=== PATIENT | female | born 1970 | race Caucasian/White ===

== ENCOUNTER 2016-10-08 17:11 | Emergency (ER) | payer OTHER ==
[2016-09-16 01:45] VITALS: BP 132/85
[~2016-10-08 17:11] MED LIST: GLIM4TAB2 PO; HYDR-2666 PO; LORA0.5T PO; METF100010 PO; METF500T4 PO; METO25TA4 PO; OXYC-244 PO; OXYC-323 PO; PRED50TA PO; PROAIR HFA8.5 GM INH; SERT25TA PO; SERT50TA PO; TRAM50TA PO
[2016-10-08] MEDS ORDERED: IPRATRPIUM/ALBUTEROL 0.5/2.5MG 3 ML NEBU. NEB ONE (17:45)
--- NOTE | 2016-10-08 17:59 | PHYS DOC ---
Past Medical History Past Medical History: Anxiety, Diabetes-Type II, Other Additional Past Medical Histor: SVT Past Surgical History: Cholecystectomy Additional Past Surgical Histo: bilateral carpal tunnel Smoking: Quit Greater Than 1 Year Alcohol Use: Rarely Drug Use: None Adult General Chief Complaint Chief Complaint: SORE THROAT HPI HPI Patient is a 46 year old female who presents with sore throat and productive cough for 4 days. She's had subjective fever and myalgias. She also reports nasal congestion and bilateral ear pain. She denies shortness of breath or GI complaints. She has appropriate air inhaler that she has been using approximately twice a day. She did receive her flu shot this year. 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 Her PCP is Dr. Caldera. Review of Systems Review of Systems Constitutional: Reports subjective fever. Eyes: Denies change in visual acuity, redness, or eye pain. [] HENT: Reports sore throat, nasal congestion, and ear pain. Respiratory: Denies shortness of breath. Reports productive cough. Cardiovascular: Denies chest pain, palpitations or edema. [] GI: Denies abdominal pain, nausea, vomiting, bloody stools or diarrhea. [] : Denies dysuria, hematuria or urinary frequency. [] Musculoskeletal: Denies back pain or joint pain. Reports myalgias. Integument: Denies rash or skin lesions. [] Neurologic: Denies headache, focal weakness or sensory changes. [] Endocrine: Denies polyuria or polydipsia. [] Psych: Denies anxiety or depression. [] All systems reviewed and negative unless otherwise stated in the HPI. Current Medications Current Medications Current Medications Medications (Trade) Dose Ordered Sig/Eh Start Time Stop Time Status Last Admin Dose Admin Albuterol/ Ipratropium (Duoneb) 3 ml 1X ONCE 10/08/16 17:45 10/08/16 17:47 DC 10/08/16 18:00 3 ML Allergies Allergies Allergies Coded Allergies Type Severity Reaction Last Updated Verified No Known Drug Allergies 02/02/16 No Physical Exam Physical Exam Constitutional: Well developed, well nourished, no acute distress, non-toxic appearance. [] HENT: Normocephalic, atraumatic, bilateral external ears normal, oropharynx moist, no oral exudates, nose normal. Bilateral TMs without erythema or bulging. There is no posterior pharyngeal erythema or tonsillar edema. Bilateral nasal turbinates are swollen and erythematous. Eyes: PERRLA, EOMI, conjunctiva normal, no discharge. [] Neck: Normal range of motion, no tenderness, supple, no stridor. [] Cardiovascular: Heart rate regular rhythm, no murmur [] Lungs & Thorax: Diffuse expiratory wheezes without rales or rhonchi. She is not in respiratory distress. Skin: Warm, dry, no erythema, no rash. [] Neurologic: Alert and oriented X 3, normal motor function, normal sensory function, no focal deficits noted. [] Psychologic: Affect normal, judgement normal, mood normal. [] Current Patient Data Vital Signs Vital Signs Date Time Temp Pulse Resp B/P Pulse Ox O2 Delivery O2 Flow Rate FiO2 10/08/16 18:02 96 Room Air 10/08/16 17:27 98.1 85 20 98.1 Lab Values Laboratory Tests Test 10/08/16 17:44 Influenza Type A Antigen Negative (NEGATIVE) Influenza Type B Antigen Negative (NEGATIVE) EKG EKG [] Radiology/Procedures Radiology/Procedures PA and lateral chest x-ray reviewed and interpreted by myself with Dr. Moore. There are no focal infiltrates to suggest pneumonia. Course & Med Decision Making Course & Med Decision Making Pertinent Labs and Imaging studies reviewed. (See chart for details) Patient is 46-year-old female who presents with sore throat and productive cough for 4 days. On exam, she has diffuse expiratory wheezes without respiratory distress. Influenza test is negative. Chest x-ray does not show any pneumonia. Her breathing improved after nebulizer treatment in the emergency department. She continues to have diffuse wheezing. Oxygen saturation is stable at 99% on room air. She is discharged home with prescription for prednisone and cough syrup. She is instructed to continue her home albuterol inhaler as needed. Return precautions were discussed. She verbalizes understanding and agrees with plan. Dragon Disclaimer Dragon Disclaimer This electronic medical record was generated, in whole or in part, using a voice recognition dictation system. Departure Departure Impression: Primary Impression: Bronchitis Disposition: 01 HOME, SELF-CARE Condition: STABLE Referrals: Cristy CALDERA MD (PCP) Patient Instructions: Acute Bronchitis, [id number] Additional Instructions: Your flu test was negative. Your chest x-ray does not show pneumonia. You likely have a viral bronchitis. Please complete all the prescribed steroids, even if you are feeling better. Please continue to use your inhaler as needed for cough or shortness of breath. Do not use more often than directed. Please take the prescribed cough medicine to help with your cough. Do not drive or operate heavy machinery while taking this medication. Please follow-up with your primary care doctor if your symptoms continue. Return to emergency department if you have any new or concerning symptoms. Scripts Promethazine Hcl/Codeine (Promethazine-Codeine Syrup)118 Ml Syrup5 Ml PO Q4- 6HRS PRN COUGH #120 ML Prov:SAL LINDQUIST 10/08/16 Prednisone 20 Mg [id number] Mg PO DAILY 5 Days Prov:SAL LINDQUIST 10/08/16 SAL LINDQUIST Oct 08, 2016 17:59
[2016-10-08 18:18] LABS: OBC FLU VALID
[2016-10-08] MEDS ORDERED: PRED20TA PO (18:44)
[2016-10-08] MEDS ORDERED: PROM118S2 PO (18:44)
--- NOTE | 2016-10-09 07:56 | RAD ---
Chest, 2 views, 10/08/2016: History: Cough and wheezing Comparison is made to a study from 12/19/2015. The heart size and pulmonary vascularity are normal. No pulmonary infiltrates are seen. There is no evidence of pleural fluid. Mild spurring is present in the spine. IMPRESSION: No acute cardiopulmonary abnormality is detected.
== END 2016-10-08 18:52 | disposition home or self-care (01) ==
LOC: ER 17:11
DX: J40 Bronchitis, not specified as acute or chronic (principal); F41.9 Anxiety disorder, unspecified; E11.9 Type 2 diabetes mellitus without complications; R50.9 Fever, unspecified; M79.1 Myalgia; H92.03 Otalgia, bilateral; F17.200 Nicotine dependence, unspecified, uncomplicated; Z90.49 Acquired absence of other specified parts of digestive tract
CPT/HCPCS: 71020; 87804; 94250; 94640; 94760; 99285; J7620

== ENCOUNTER → 2016-11-02 | Outpatient (CLI) | payer OTHER ==
[2016-10-08 17:27] VITALS: BP 143/67
[~2016-11-02] MED LIST changes: +PRED20TA PO; +PROM118S2 PO
--- NOTE | 2016-11-02 12:33 | RAD ---
EXAM: DIGITAL SCREEN BILAT W/CAD HISTORY: Routine Screening. COMPARISON: 10/21/2015 Standard mammographic views are obtained of the bilateral breasts. This study was interpreted with the benefit of Computerized Aided Detection (CAD). FINDINGS: The breast parenchyma shows scattered fibroglandular densities. Breast parenchyma level II. There is no definite new suspicious spiculated mass or worrisome new cluster of microcalcifications. There are scattered calcifications again seen. IMPRESSION: No definite new suspicious mass. BI-RADS CATEGORY: 2 BENIGN FINDING RECOMMENDED FOLLOW-UP: 12M 12 MONTH FOLLOW-UP PQRS compliance statement: Patient information was entered into a reminder system with a target due date for the next mammogram. Mammography is a sensitive method for finding small breast cancers, but it does not detect them all and is not a substitute for careful clinical examination. A negative mammogram does not negate a clinically suspicious finding and should not result in delay in biopsying a clinically suspicious abnormality. "Our facility is accredited by the [employer] Mammography Program."
== END | disposition home or self-care (01) ==
LOC: MAMMO 09:50
PROVIDERS: ATTEND Nurse Practitioner Women's Health
DX: Z12.31 Encounter for screening mammogram for malignant neoplasm of breast (principal)
CPT/HCPCS: G0202; 77067

== ENCOUNTER → 2016-12-12 | Outpatient (CLI) | payer OTHER ==
[2016-10-08 17:27] VITALS: BP 143/67
[2016-12-12 12:03] LABS: BASO # 0.1 x10^3/uL (0.0-0.2); BASO % 1 % (0-3); EOS % 3 % (0-3); HEMATOCRIT 38.2 % (36.0-47.0); HEMOGLOBIN 12.7 g/dL (12.0-15.5); LYMPH # 2.8 x10^3/uL (1.0-4.8); LYMPH % 34 % (24-48); MEAN CORPUSCULAR HEMOGLOBIN 31 pg (25-35); MEAN CORPUSCULAR HGB CONC 33 g/dL (31-37); MEAN CORPUSCULAR VOLUME 93 fL (79-100); MONO % 8 % (0-9); NEUT % 54 % (31-73); PLATELET COUNT 207 x10^3/uL (140-400); RED CELL DISTRIBUTION WIDTH 13.8 % (11.5-14.5); WHITE BLOOD COUNT 8.1 x10^3/uL (4.0-11.0)
[2016-12-12 12:13] LABS: ALBUMIN 3.6 g/dL (3.4-5.0); ALBUMIN/GLOBULIN RATIO 0.8 (1.0-1.7); CALCIUM 8.8 mg/dL (8.5-10.1); CREATININE 0.8 mg/dL (0.6-1.0); GFR 77.6; POTASSIUM 4.1 mmol/L (3.5-5.1); TOTAL BILIRUBIN 0.6 mg/dL (0.2-1.0)
[2016-12-14 14:28] LABS: H PYLORI IGG 0.5 U/mL (0.0-0.8); H PYLORI IGM 3.4 units (0.0-8.9)
== END | disposition home or self-care (01) ==
LOC: LAB 11:39
PROVIDERS: ATTEND Family Medicine
DX: E11.9 Type 2 diabetes mellitus without complications (principal); K29.00 Acute gastritis without bleeding
CPT/HCPCS: 36415; 80053; 83036; 85027; 86677

== ENCOUNTER → 2017-01-08 | Outpatient (CLI) | payer OTHER ==
[2016-10-08 17:27] VITALS: BP 143/67
--- NOTE | 2017-01-08 10:08 | RAD ---
Radionuclide gastric emptying study, 01/08/2017: History: Abdominal bloating The study was performed utilizing a solid test meal radiolabeled with 2.1 mCi of technetium 99 M sulfur colloid. The time to half emptying of the radionuclide from the patient's stomach was estimated at 92 minutes. A normal T 1/2 is 60 minutes +/- 30 minutes. IMPRESSION: The gastric emptying time is at the upper limits of normal.
== END | disposition home or self-care (01) ==
LOC: NM 07:03
PROVIDERS: ATTEND Family Medicine
DX: R14.0 Abdominal distension (gaseous) (principal)
CPT/HCPCS: 78264; A9541

== ENCOUNTER → 2017-01-16 | Outpatient (CLI) | payer OTHER ==
[2016-10-08 17:27] VITALS: BP 143/67
--- NOTE | 2017-01-16 08:27 | RAD ---
Indication pelvic pain. History of ablation one year ago. Spotting since. Transabdominal scans were obtained. The initial transabdominal scans were supplemented with transvaginal scans. The transabdominal scans are very suboptimal. The urinary bladder is incompletely distended and there is a poor pelvic window. The transvaginal scans demonstrate numerous nabothian cysts associated with the cervix. The uterus measures approximately 11 x 6.6 x 9.3 cm. It has a very heterogeneous appearance. There is a more dominant mass at the fundus of the uterus measuring approximately 5 cm compatible with a fibroid. The endometrium is not well defined but measures approximately 5 mm. The right ovary was not seen. The left ovary appeared normal. IMPRESSION: Enlarged heterogeneous uterus containing a dominant fibroid at the fundus. Endometrial thickness approximately 5 mm. Normal left ovary. The right ovary was not seen
== END | disposition home or self-care (01) ==
LOC: US 06:53
PROVIDERS: ATTEND Obstetrics & Gynecology
DX: D25.9 Leiomyoma of uterus, unspecified (principal)
CPT/HCPCS: 76830; 76856

== ENCOUNTER → 2017-02-14 | Outpatient (CLI) | payer OTHER ==
[2016-10-08 17:27] VITALS: BP 143/67
[2017-02-14 14:53] LABS: BASO # 0.1 x10^3/uL (0.0-0.2); BASO % 1 % (0-3); EOS % 2 % (0-3); HEMATOCRIT 37.2 % (36.0-47.0); HEMOGLOBIN 12.7 g/dL (12.0-15.5); LYMPH # 2.9 x10^3/uL (1.0-4.8); LYMPH % 44 % (24-48); MEAN CORPUSCULAR HEMOGLOBIN 32 pg (25-35); MEAN CORPUSCULAR HGB CONC 34 g/dL (31-37); MEAN CORPUSCULAR VOLUME 95 fL (79-100); MONO % 6 % (0-9); NEUT % 46 % (31-73); PLATELET COUNT 185 x10^3/uL (140-400); RED BLOOD COUNT 3.94 x10^6/uL (3.50-5.40); RED CELL DISTRIBUTION WIDTH 14.2 % (11.5-14.5); WHITE BLOOD COUNT 6.7 x10^3/uL (4.0-11.0)
--- NOTE | 2017-02-14 14:53 | EKG ---
[facility] [address] [place] [address] Test Date: 2017-02-14 Test Time: 14:54:30 Pat Name: MITCH XIAO Department: Room: Gender: F Boiler Maker: : 1970 Requested By: ROSI BUCKNER Order Number: [id number] Reading MD: Molina Rose Measurements Intervals [place] Rate: 69 P: 37 MT: 150 QRS: 34 QRSD: 90 T: 22 QT: 392 QTc: 422 Interpretive Statements SINUS RHYTHM NO ACUTE FINDINGS Electronically Signed On 02-16-2017 8:45:36 CDT by Molina Rose
[2017-02-14 15:08] LABS: CALCIUM 8.9 mg/dL (8.5-10.1); CREATININE 0.8 mg/dL (0.6-1.0); GFR 77.2; POTASSIUM 3.9 mmol/L (3.5-5.1)
== END | disposition home or self-care (01) ==
LOC: SURGPAT 14:13
PROVIDERS: ATTEND Obstetrics & Gynecology
DX: Z01.812 Encounter for preprocedural laboratory examination (principal)
CPT/HCPCS: 36415; 80048; 85027; 93005

== ENCOUNTER 2017-02-21 06:07 | Observation (INO) | payer OTHER ==
[~2017-02-21] VITALS: Ht 170.2 cm; Wt 113.4 kg
[~2017-02-21 06:07] MED LIST changes: -HYDR-2666 PO; +HYDR-2758 PO; -OXYC-244 PO; +OXYC-327 PO
[2017-02-21] MEDS ORDERED: ONDANSETRON PF 4 MG/2 ML VIAL. IV PRN ×2 (07:00→09:45)
[2017-02-21] MEDS ORDERED: MORPHINE SULFATE 2 MG/ML DISP.SYRIN. IV PRN (07:00)
[2017-02-21] MEDS ORDERED: IV RINGERS,LACTATED 1000ML 1,000 ML IV SCH (07:00)
[2017-02-21] MEDS ORDERED: PROCHLORPERAZINE 10 MG/2 ML VIAL. IV PRN (07:00)
[2017-02-21] MEDS ORDERED: LIDOCAINE 1% 1 ML SYRINGE. ID PRN (07:00)
[2017-02-21] MEDS ORDERED: fentaNYL PF VIAL 100 MCG/2 ML VIAL IV PRN (07:00)
[2017-02-21] MEDS ORDERED: BUPIVACAINE-EPI 0.25%-1:200000 MPF 30 ML VIAL. ONE (07:07)
[2017-02-21] MEDS ORDERED: ESTROGENS, CONJ VAGINAL CREAM 30GM TUBE. ONE (07:07)
[2017-02-21] MEDS ORDERED: METHYLENE BLUE 1% 1 ML VIAL. ONE (07:07)
[2017-02-21] MEDS ORDERED: MIDAZOLAM HCL/PF 2 MG/2 ML VIAL. ONE (07:15)
[2017-02-21] MEDS ORDERED: fentaNYL PF VIAL 250 MCG/5 ML VIAL ONE (07:16)
[2017-02-21] MEDS ORDERED: ROCURONIUM 50 MG/5 ML VIAL. ONE ×2 (07:16→08:17)
[2017-02-21] MEDS ORDERED: PROPOFOL 20 ML IV ONE (07:19)
[2017-02-21] MEDS ORDERED: ONDANSETRON PF 4 MG/2 ML VIAL. ONE (07:19)
[2017-02-21] MEDS ORDERED: LIDOCAINE 2% PF Vial for OR 5 ML VIAL. ONE (07:19)
[2017-02-21] MEDS ORDERED: DEXAMETHASONE SOD PHOS 20 MG/5 ML VIAL. ONE (07:19)
[2017-02-21 07:20] LABS: NEG OBC UR NEG; POS OBC UR POS
[2017-02-21] MEDS ORDERED: ROPIVacaine 0.5% PF 30 ML VIAL. ONE (07:34)
[2017-02-21] MEDS ORDERED: ROPIVacaine 0.2% PF 10 ML VIAL. ONE ×3 (07:34→07:37)
[2017-02-21] MEDS ORDERED: 0.9 % SODIUM CHLORIDE 50 ML VIAL. IJ ONE (07:35)
[2017-02-21] MEDS ORDERED: ceFAZolin 2GM PREMIX 2 GM/50 ML BAG IV ONE (07:44)
[2017-02-21] MEDS ORDERED: NEOSTIGMINE METHYLSULFATE 5 MG/5 ML SYRINGE. ONE (08:46)
[2017-02-21] MEDS ORDERED: GLYCOPYRROLATE 1 MG/5 ML VIAL. ONE (08:46)
[2017-02-21] MEDS ORDERED: SEVOFLURANE 61 TO 120 MINUTES. IH ONE (08:47)
--- NOTE | 2017-02-21 09:32 | PDOC ---
BRIEF OPERATIVE NOTE Date: Feb 21, 2017 Pre-Op Diagnosis pelvic pain and fibroid uterus Post-Op Diagnosis same plus omental adhesions to anterior wall of abdomen Procedure Performed lavh and bso and adhesiolysis Surgeon Burton Diesel Service Apprentice Marko Anesthesiologist yes Anesthesia Type: General Blood Loss 350cc IV Fluid see anesthesia report Urine Output 275cc. Urine was clear prior to morcellation, then a little blood tinged Specimens Obtained uterus, tubes, ovaries Findings see dictation Complications none Additional Remarks [id number] ROSI BUCKNER MD Feb 21, 2017 09:32
--- NOTE | 2017-02-21 09:33 | DISCH ---
DISCHARGE INSTRUCTIONS Condition on Discharge Condition on Discharge: Stable Activity After Discharge Activity Instructions for Disc: Activity as tolerated, Avoid exertion, Progressive ambulation Lifting Instructions after Dis: No heavy lifting, No pulling or pushing, Do not lift >10 pounds Exercise Instruction after Dis: Progress as tolerated Driving Instructions after Dis: No driving for 2 weeks Weight Bearing Status after Di: Full weight bearing Diet after Discharge Diet after Discharge: Diabetic No Calorie Level Wound Incision Care Wound/Incision Care: Ice to area for comfort, May get incision wet Contacting the DR. after DC Call your doctor for: If your condition worsens Follow-Up Follow up with: 1 week in office ROSI BUCKNER MD Feb 21, 2017 09:33
[2017-02-21] MEDS: fentaNYL PF VIAL 100 MCG/2 ML VIAL IV PRN ×4 (09:45→10:33)
[2017-02-21] MEDS ORDERED: diphenhydrAMINE 50 MG/ML VIAL IV PRN (09:45)
[2017-02-21] MEDS ORDERED: PROCHLORPERAZINE 25 MG SUPP.RECT. PR PRN ×2 (09:45)
[2017-02-21] MEDS ORDERED: ZOLPIDEM 5 MG TABLET. PO PRN (09:45)
[2017-02-21] MEDS ORDERED: diphenhydrAMINE HCL 25 MG CAPSULE PO PRN (09:45)
[2017-02-21] MEDS ORDERED: MAG HYDROX/ALUMINUM HYD/SIMETH 30 ML ORAL.SUSP PO PRN (09:45)
[2017-02-21] MEDS ORDERED: 0.9 % SODIUM CHLORIDE 10 ML DISP.SYRIN. IV PRN (09:45)
[2017-02-21] MEDS ORDERED: NALOXONE 0.4 MG/ML VIAL. IV PRN (09:45)
[2017-02-21] MEDS ORDERED: IBUPROFEN 600 MG TABLET. PO PRN (09:45)
[2017-02-21] MEDS ORDERED: SIMETHICONE 80 MG TAB.CHEW PO PRN (09:45)
[2017-02-21] MEDS ORDERED: HYDROmorphone 2 MG/ML VIAL IM PRN (09:45)
[2017-02-21] MEDS: HYDROmorphone 2 MG/ML VIAL IV PRN ×4 (09:45→10:53)
[2017-02-21] MEDS ORDERED: HYDROcodone/APAP 5/325MG 1 TAB TABLET PO PRN (09:45)
[2017-02-21] MEDS ORDERED: oxyCODONE/APAP 5/325 1 TAB TABLET PO PRN (09:45)
[2017-02-21] MEDS ORDERED: NON FORMULARY ITEM (Albuterol Sulfate (Proair Hfa Inhaler) 1 PUFF) INH PRN (09:45)
[2017-02-21] MEDS ORDERED: KETOROLAC TROMETHAMINE 30 MG/ML INJ. IV PRN (09:45)
[2017-02-21] MEDS ORDERED: ALBUTEROL SULFATE 2.5 MG/3 ML NEBU. NEB PRN ×2 (09:45→10:30)
[2017-02-21] MEDS ORDERED: LACTULOSE 20 GM/30 ML SOLUTION. PO PRN (09:45)
[2017-02-21] MEDS ORDERED: HYDROmorphone 2 MG/ML VIAL IV PRN (09:45)
[2017-02-21] MEDS ORDERED: CALCIUM CARBONATE 500 MG TAB.CHEW PO PRN (09:45)
[2017-02-21] MEDS ORDERED: SERTRALINE 50 MG TABLET. PO SCH (11:00)
[2017-02-21] MEDS ORDERED: GLIMEPIRIDE 2 MG TABLET. PO SCH (11:00)
[2017-02-21] MEDS ORDERED: ESTRADIOL WEEKLY 0.1 MG PATCH. TD SCH (11:00)
[2017-02-21] MEDS ORDERED: METOPROLOL TART IMMED RELEASE 25 MG TABLET. PO SCH (11:00)
[2017-02-21] MEDS ORDERED: metFORMIN XR 500 MG TAB.ER.24H PO SCH (11:00)
[2017-02-21] MEDS ORDERED: LORazepam 1 MG TABLET PO SCH (11:00)
[2017-02-21 11:17] VITALS: BP 107/62
[2017-02-21 11:30] VITALS: BP 102/58
--- NOTE | 2017-02-21 11:37 | OP ---
DATE OF SURGERY: 02/21/2017 PREOPERATIVE DIAGNOSES: This is a 47-year-old female who presented with a history of pelvic pain and a fibroid uterus. POSTOPERATIVE DIAGNOSES: This is a 47-year-old female who presented with a history of pelvic pain and a fibroid uterus and omental adhesions to the anterior wall of the abdomen. PROCEDURES: Laparoscopic-assisted vaginal hysterectomy and bilateral salpingo-oophorectomy with adhesiolysis. SURGEONS: Dr. Buckner and Dr. Zhu. ANESTHESIA: General. COMPLICATIONS: None. ESTIMATED BLOOD LOSS: 350 mL; there was actually a discrepancy with the blood loss. The suction floor mechanic showed that we had lost 880 mL, but we actually had put in 60 mL of pelvic wash prior to the procedure and the anesthesiologist said that we had to irrigate it when we were doing laparoscopy which, in fact, we actually did not. So, she was subtracting the irrigant from the amount that the suction floor mechanic had in the canister and got 350 mL. The actual suction floor mechanic machine showed 880 mL. INTRAVENOUS FLUIDS: Please see anesthesia. URINE OUTPUT: 275 mL, the urine was completely clear prior to morcellation and there was a tiny bit of blood-tinged afterwards. SPECIMENS: Uterus, tubes, and ovaries. FINDINGS: As follow. COMPLICATIONS: None. DESCRIPTION OF PROCEDURE: After informed consent was obtained, the patient was taken to the operating room and given a smooth induction of anesthesia without complications. Her legs were placed in Alfredo stirrups and her abdomen, perineum, and vagina were prepped and draped in the usual sterile fashion. She received 2 grams of Ancef prior to the procedure onset. A weighted speculum was placed in the vagina and the anterior lip of the cervix was grasped with a single tooth tenaculum. Cervix was injected with 0.25% Marcaine 10 mL at 2, 4, 8, and 10 o'clock on the cervix. We then placed the Valtchev through cervical os and removed the speculum. We then went above and a 5-mm incision was made just above the umbilicus because there was an incision from her previous cholecystectomy just below. We went through this incision trocar using the Recogniaort technology. It appeared, we were in some adhesions. At that point, we placed 2 lateral ports under direct visualization and were able to further see the adhesions, our port actually was not in the adhesions, they were just directly in front of it. We took down the adhesions with the LigaSure. They appeared to be all omental adhesions and were taken down easily. We then placed the patient in Trendelenburg and visualized the uterus. The uterus was noted to be enlarged with a very retroverted top heavy fibroid, which was sitting in the posterior cul-de-sac. Both ovaries appeared to be normal. We then proceeded to cauterize and ligate the round ligament on both sides. A window was created in the medial leaf of the broad ligament and the bladder flap was dissected anteriorly. We then visualized the ureter on both sides before coming across the IP ligament, cauterized the IP ligament and transected it, we then came down the sides of the uterus to cauterize the uterine vessels. Once we reached the uterosacral ligaments, we stopped. There was a fair amount of backbleeding from the uterus and again we had to suction a couple of times. Prior to starting the actual procedure, we placed 60 mL of a dilute of Naropin solution into the pelvis for patient's comfort. it was a dilute solution of 30 mL of 0.2% ropivacaine in 200 mL of saline was the mix and then we used 60 mL of it. We then terminated the above procedure and went down below. Weighted speculum was placed in the vagina. The Valtchev and tenaculum were replaced by 2 Judah thyroid clamps. We then created an incision circumferentially around the cervix. The bladder was retracted anteriorly using blunt dissection with a Ray-Jose Daniel. Once we entered the anterior peritoneum, we were able to elevate the uterus and entered posteriorly as well. This was done with the Metzenbaum scissors. We then tagged the posterior peritoneum to the posterior vaginal wall and saved it for later use. We then placed a Blaise speculum intraperitoneally. We then proceeded to clamp, cut, and ligate using Douglas transfixion sutures. The 2 uterosacral cardinal complexes, these were tacked to the lateral vaginal sidewalls and saved for later use. We then proceeded to clamp, cut, and ligate what was left of the cardinal ligaments and the uterine arteries. The uterus then had to be morcellated to be removed. The uterus was very large and morcellation took some time and again when we were pulling and tugging on the uterus, we got a little bit of blood-tinged urine from the bladder. Once the uterus was removed, we closed the peritoneum using a running pursestring suture of 2-0 Vicryl and then closed the vagina using a running locking stitch of 2-0 Vicryl. We then went back above to irrigate the pelvis. Pelvis was irrigated. No bleeding was noted. Tisseel was sprayed across the raw surfaces to help with hemostasis, although no bleeding again was noted. The gutters were both clear of blood. There was no bleeding from the omentum that had been previously taken down. We then removed the ports under direct visualization and the gas was allowed to escape. We closed the port sites with an interrupted suture of 4-0 nylon. The patient tolerated the procedure well. There were no complications. ROSI BUCKNER MD DR: BRITTNY/candelario JOB#: [id number] / [id number]
[2017-02-21 12:01] VITALS: BP 105/72
[2017-02-21 12:30] VITALS: BP 110/64
[2017-02-21 18:45] VITALS: BP 123/63
--- NOTE | 2017-02-26 17:05 | PATHOLOGY ---
PATHOLOGY REPORT * * * * * * * * FINAL DIAGNOSIS: Uterus and attached bilateral fallopian tubes and ovaries, laparoscopic-assisted vaginal hysterectomy with bilateral salpingo-oophorectomy: - Mild chronic cervicitis, focal. - Adenomyosis, uterine corpus, extensive, with mild myometrial hypertrophy. 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 - Focal capsular endometriosis and few small cystic follicles and serous inclusion cysts of left ovary. - Right paratubal cyst. - Focal endometriosis of right fallopian tube and tubal fimbria. - Cystic endometriosis and corpus luteal cyst of right ovary. (JPM:mml; d/t: 02/26/2017) COMMENT: There is no evidence of malignancy. REPORT ELECTRONICALLY SIGNED BY: Aidan Merino M.D. DATE/TIME: 02/26/2017 16:55 * * * * * * * * GROSS PATHOLOGY: The specimen is received in formalin, labeled "Shyann,uterus, cervix, both ovaries and tubes" is a partially torn hysterectomy specimen including uterus, cervix, bilateral fallopian tubes and ovaries. The specimen weighs 427 g and measures approximately 13 cm superior to inferior, 7.5 cm cornu to cornu, and 6.0 cm anterior to posterior. The remaining serosa is hart to brown and smooth. The hart-white glistening cervical face measures 3.0 x 2.7 cm with a 0.5 cm centrally located ovoid cervical os. The fragments of uterus are examined to reveal a somewhat hart-brown poorly demarcated endometrium. Sectioning through the specimen reveals the transformation between the endometrium and myometrium is not grossly visible. The specimen displays a hart to white, semi-firm unremarkable cut surface. The left fallopian tube including fimbriated end measures 5.7 cm in length by up to 1.0 cm in diameter. The outer surface of the specimen is grossly unremarkable and is sectioned to reveal a diffusely patent lumen. The left ovary is hart-white, ovoid and measures 4.5 x 2.5 x 1.4 cm. Sectioning through the specimen reveals yellow hart grossly unremarkable parenchyma. The right fallopian tube including fimbriated end measures 5.5 cm in length by up to 0.8 cm in diameter. The specimen displays one paratubal cyst measuring 1.3 x 0.6 x 0.4 cm located at the fimbriated end. Sectioning through the specimen reveals a diffusely patent lumen. The right ovary measures 4.0 x 2.5 x 1.5 cm. Sectioning through the specimen reveals multiple cystic spaces filled with reddish brown hemorrhagic material measuring up to 1.3 x 0.8 x 0.6 cm. Section code: A1 and A2, client relations representative sections from each quadrant of cervix, A3, anterior uterus including possible endometrium, A4, anterior uterus, including myometrium and serosa, A5, posterior uterus containing possible endometrium, A6, posterior uterus including myometrium and serosa, A7, left fallopian tube, A8, left ovary, A9, right fallopian tube, A10, right ovary. (AKA; 02/23/2017) INITIAL CPT CODE(S): A; 28947 Professional services performed [place] [address] Technical services performed by [employer] [employer] at [address] [place] [address], [facility], [address], [place] [address]. SPECIMEN(S) RECEIVED: A.Uterus, cervix, both ovaries and tubes CLINICAL HISTORY: Urinary incontinence, fibroids, pelvic pain, dysmenorrhea, uterine prolapse, menorrhagia PATIENT: MITCH XIAO /AGE: 5 1970 (Age: 47) PATIENT #: [id number] ALT CASE #: SPECIMEN COLLECTION DATE: 02/21/2017 SPECIMEN RECEIVED DATE: 02/21/2017 [facility] - [id number] [place] [address] - PHONE: [phone] * * * END OF REPORT * * *
== END 2017-02-21 19:04 | disposition home or self-care (01) ==
LOC: SURG 06:07 → 3 NORTH 09:45
PROVIDERS: ADMIT Obstetrics & Gynecology; ATTEND Obstetrics & Gynecology
DX: N92.0 Excessive and frequent menstruation with regular cycle (principal); N94.6 Dysmenorrhea, unspecified; N81.4 Uterovaginal prolapse, unspecified; R10.2 Pelvic and perineal pain; N39.3 Stress incontinence (female) (male); D25.1 Intramural leiomyoma of uterus; I10 Essential (primary) hypertension; E11.9 Type 2 diabetes mellitus without complications; F41.9 Anxiety disorder, unspecified; Z87.891 Personal history of nicotine dependence; Z82.49 Family history of ischemic heart disease and other diseases of the circulatory system
CPT/HCPCS: 36415; 58554; 81025; 85014; 86850; 86900; 86901; 96372; 96374; C1769; G0378; G0379; J0690; J1100; J1170; J1885; J2250; J2704; J2710; J2795; J3010; J3490; J7030; J7120; Q9968; J2405

== ENCOUNTER 2017-05-18 16:49 | Emergency (ER) | payer OTHER ==
[~2017-05-18] VITALS: Ht 170.2 cm; Wt 108.4 kg
[2017-05-18] MEDS ORDERED: ACETAMINOPHEN 325 MG TABLET. PO ONE (17:30)
[2017-05-18 17:35] LABS: BASO # 0.1 x10^3/uL (0.0-0.2); BASO % 1 % (0-3); EOS % 3 % (0-3); HEMATOCRIT 38.3 % (36.0-47.0); HEMOGLOBIN 13.1 g/dL (12.0-15.5); LYMPH # 2.6 x10^3/uL (1.0-4.8); LYMPH % 46 % (24-48); MEAN CORPUSCULAR HEMOGLOBIN 32 pg (25-35); MEAN CORPUSCULAR HGB CONC 34 g/dL (31-37); MEAN CORPUSCULAR VOLUME 94 fL (79-100); MONO % 7 % (0-9); NEUT % 43 % (31-73); PLATELET COUNT 198 x10^3/uL (140-400); RED BLOOD COUNT 4.09 x10^6/uL (3.50-5.40); RED CELL DISTRIBUTION WIDTH 13.9 % (11.5-14.5); WHITE BLOOD COUNT 5.7 x10^3/uL (4.0-11.0)
[2017-05-18 17:52] LABS: CALCIUM 9.1 mg/dL (8.5-10.1); CREATININE 0.8 mg/dL (0.6-1.0); GFR 77.2; POTASSIUM 3.8 mmol/L (3.5-5.1)
[2017-05-18 17:56] LABS: ALBUMIN 3.8 g/dL (3.4-5.0); ALBUMIN/GLOBULIN RATIO 0.9 (1.0-1.7); TOTAL BILIRUBIN 0.6 mg/dL (0.2-1.0); TOTAL PROTEIN 8.1 g/dL (6.4-8.2)
[2017-05-18] MEDS ORDERED: ONDANSETRON PF 4 MG/2 ML VIAL. IV ONE (18:45)
[2017-05-18] MEDS ORDERED: fentaNYL PF VIAL 100 MCG/2 ML VIAL IV ONE (18:45)
[2017-05-18] MEDS ORDERED: MORPHINE SULFATE 4 MG/ML DISP.SYRIN. IV ONE (20:00)
[2017-05-18] MEDS ORDERED: IOHEXOL 300 MG/ML 75 ML VIAL IV ONE (20:45)
--- NOTE | 2017-05-18 21:36 | RAD ---
EXAM: CT angiography of the chest with intravenous contrast; abdomen and pelvis CT with contrast. HISTORY: Chest pain. TECHNIQUE: Computed tomographic images of the chest, abdomen and pelvis were obtained following the administration of 75 cc Omnipaque 300 intravenous contrast according to angiography protocol. Multiplanar reformatting was performed and 3-dimensional maximum intensity projection images were obtained. *One or more of the following individualized dose reduction techniques were utilized for this examination: 1. Automated exposure control. 2. Adjustment of the mA and/or kV according to patient size. 3. Use of iterative reconstruction technique. COMPARISON: 07/24/2005. FINDINGS: Chest: The exam is nondiagnostic for pulmonary embolism due to suboptimal contrast opacification of the pulmonary arteries. No central embolism is seen. The aorta is normal in caliber. No aortic dissection is seen. No pathologically enlarged central or hilar lymph node is seen. There is no pneumothorax or pleural effusion. There is no infiltrate. There is a 3 mm pleural-based nodular opacity within the lateral right middle lobe, likely due to subsegmental atelectasis. There are a few calcified right hilar granulomas. There is no suspicious osseous lesion. There are degenerative changes within the thoracic spine. Abdomen and pelvis: There is hepatomegaly and hepatic steatosis. No suspicious hepatic lesion is seen. The gallbladder is surgically absent. The pancreas, spleen, adrenal glands and kidneys are unremarkable. The appendix is normal in appearance. There is moderate colonic stool. There is no evidence of bowel obstruction. No pathologically enlarged lymph node is seen. The bladder is unremarkable. The uterus is surgically absent. There is no suspicious osseous lesion. There is degenerative change within the lumbar spine primarily the lower lumbar levels. IMPRESSION: 1. Nondiagnostic exam for pulmonary embolus. This is due to suboptimal contrast opacification of the pulmonary arteries. No central embolism is seen. However, segmental and subsegmental emboli cannot be excluded on this exam. 2. No acute thoracic finding. 3. Hepatomegaly and hepatic steatosis. 4. Moderate colonic stool. Electronically signed by: Nataly Reinoso MD (05/18/2017 9:33 PM) [facility]
[2017-05-18 22:45] VITALS: BP 138/70
[2017-05-18] MEDS ORDERED: HYDROcodone/APAP 5/325MG 1 TAB TABLET PO ONE (23:15)
--- NOTE | 2017-05-19 01:00 | PHYS DOC ---
Past Medical History Past Medical History: Anxiety, Diabetes-Type II, Other Additional Past Medical Histor: SVT Past Surgical History: Cholecystectomy Additional Past Surgical Histo: bilateral carpal tunnel, ablation Alcohol Use: Rarely Drug Use: None Adult General Chief Complaint Chief Complaint: CHEST PAIN HPI HPI Patient is a 47 year old female who presents with palpitations, increased anxiety and chest pain while working out the emergency department. Patient states she was sitting when symptoms began. Patient took deep breaths and used her usual laxation techniques which were unsuccessful. Heart rate is described as pounding and irregular. Patient also reports headache, neck and posterior back pain. Patient states symptoms are different than usual anxiety episodes. She denies knowledge of any stress triggers. Denies increased shortness of breath, vomiting, sweats, or epigastric pain. Patient does report increased gassiness earlier today. No leg pain or swelling. No history of DVT or PE. Previous history of cholecystectomy. Review of Systems Review of Systems Review symptoms as per history of present illness. All other review symptoms are negative. Current Medications Current Medications Current Medications Medications (Trade) Dose Ordered Sig/Eh Start Time Stop Time Status Last Admin Dose Admin Acetaminophen (Tylenol) 650 mg 1X ONCE 05/18/17 17:30 05/18/17 17:31 DC 05/18/17 17:49 650 MG Acetaminophen/ Hydrocodone Bitart (Lortab 5/325) 1 tab 1X ONCE 05/18/17 23:15 05/18/17 23:16 DC 05/18/17 23:38 1 TAB Fentanyl Citrate (Fentanyl 2ml Vial) 50 mcg 1X ONCE 05/18/17 18:45 05/18/17 18:46 DC Iohexol (Omnipaque 300 Mg/ml) 75 ml 1X ONCE 05/18/17 20:45 05/18/17 20:46 DC 05/18/17 21:04 75 ML Morphine Sulfate 4 mg 1X ONCE 05/18/17 20:00 05/18/17 20:01 DC 05/18/17 19:58 4 MG Ondansetron HCl (Zofran) 4 mg 1X ONCE 05/18/17 18:45 05/18/17 18:46 DC Allergies Allergies Allergies Coded Allergies Type Severity Reaction Last Updated Verified No Known Drug Allergies 02/21/17 No Physical Exam Physical Exam Constitutional: Well developed, well nourished, no acute distress, non-toxic appearance. [] HENT: Normocephalic, atraumatic, bilateral external ears normal, oropharynx moist, no oral exudates, nose normal. [] Eyes: PERRLA, EOMI, conjunctiva normal, no discharge. [] Neck: Normal range of motion, no tenderness, supple, no stridor. [] Cardiovascular:Heart rate regular rhythm, no murmur [] Lungs & Thorax: Bilateral breath sounds clear to auscultation [] Abdomen: Bowel sounds normal, soft, no tenderness. [] Skin: Warm, dry, no erythema, no rash. [] Back: No tenderness, no CVA tenderness. [] Extremities: No tenderness. [] Neurologic: Alert and oriented X 3, normal motor function, normal sensory function, no focal deficits noted. [] Psychologic: Affect normal, judgement normal, mood normal. [] Current Patient Data Vital Signs Vital Signs Date Time Temp Pulse Resp B/P (MAP) Pulse Ox O2 Delivery O2 Flow Rate FiO2 05/18/17 22:45 62 14 138/70 (92) 97 Room Air 05/18/17 16:58 97.5 97.5 Lab Values Laboratory Tests Test 05/18/17 17:08 05/18/17 17:10 D-Dimer (Diana) 0.44 ug/mlFEU (0.00-0.50) White Blood Count 5.7 x10^3/uL (4.0-11.0) Red Blood Count 4.09 x10^6/uL (3.50-5.40) Hemoglobin 13.1 g/dL (12.0-15.5) Hematocrit 38.3 % (36.0-47.0) Mean Corpuscular Volume 94 fL (79-100) Mean Corpuscular Hemoglobin 32 pg (25-35) Mean Corpuscular Hemoglobin Concent 34 g/dL (31-37) Red Cell Distribution Width 13.9 % (11.5-14.5) Platelet Count 198 x10^3/uL (140-400) Neutrophils (%) (Auto) 43 % (31-73) Lymphocytes (%) (Auto) 46 % (24-48) Monocytes (%) (Auto) 7 % (0-9) Eosinophils (%) (Auto) 3 % (0-3) Basophils (%) (Auto) 1 % (0-3) Neutrophils # (Auto) 2.5 x10^3uL (1.8-7.7) Lymphocytes # (Auto) 2.6 x10^3/uL (1.0-4.8) Monocytes # (Auto) 0.4 x10^3/uL (0.0-1.1) Eosinophils # (Auto) 0.2 x10^3/uL (0.0-0.7) Basophils # (Auto) 0.1 x10^3/uL (0.0-0.2) Sodium Level 136 mmol/L (136-145) Potassium Level 3.8 mmol/L (3.5-5.1) Chloride Level 99 mmol/L (98-107) Carbon Dioxide Level 30 mmol/L (21-32) Anion Gap 7 (6-14) Blood Urea Nitrogen 11 mg/dL (7-20) Creatinine 0.8 mg/dL (0.6-1.0) Estimated GFR (Cockcroft-Gault) 77.2 BUN/Creatinine Ratio 14 (6-20) Glucose Level 209 mg/dL (70-99) H Calcium Level 9.1 mg/dL (8.5-10.1) Total Bilirubin 0.6 mg/dL (0.2-1.0) Aspartate Amino Transferase (AST) 43 U/L (15-37) H Alanine Aminotransferase (ALT) 71 U/L (14-59) H Alkaline Phosphatase 50 U/L (46-116) Troponin I Quantitative < 0.017 ng/mL (0.000-0.055) Total Protein 8.1 g/dL (6.4-8.2) Albumin 3.8 g/dL (3.4-5.0) Albumin/Globulin Ratio 0.9 (1.0-1.7) L Laboratory Tests 05/18/17 17:10 Laboratory Tests 05/18/17 17:10 EKG EKG [EKG: Normal sinus rhythm, no acute ST-T wave changes.] Radiology/Procedures Radiology/Procedures [CT chest: CT abdomen pelvis: Limited study chest study. No acute radial pulmonary or intra-abdominal process identified per radiology report] Course & Med Decision Making Course & Med Decision Making Pertinent Labs and Imaging studies reviewed. (See chart for details) [Patient with atypical chest pain at rest described as nonexertional, associated with palpitations described as fast and pounding, followed by pain between shoulder blades. Patient denies abdominal pain, reports feeling gassy and distended and anxious prior to episodes. She achieved labs, imaging studies are reassuring. No evidence of acute cardiopulmonary or abdominal cause of symptoms. Patient developed a headache on the ED, headache treated. Recommend supportive care with PCP follow-up. Courtesy work note provided. ] Sabrina Disclaimer Dragon Disclaimer This electronic medical record was generated, in whole or in part, using a voice recognition dictation system. Departure Departure Impression: Primary Impression: Headache Additional Impression: Chest pain Disposition: HOME, SELF-CARE Condition: GOOD Patient Instructions: Chest Pain (Nonspecific), [id number], General Headache Without Cause, [id number] Additional Instructions: You were evaluated in the emergency department for chest pain, back pain and headache. Imaging, lab and EKG studies were performed which were normal. The exact cause of your symptoms has not been determined. Please take an antacid, Tylenol for pain and tramadol as needed for additional relief. Follow-up with your PCP early next week for reevaluation. In the meantime, if you develop new or worsening symptoms return to the ED. Problem Qualifiers FRANSISCO SALGADO DO May 19, 2017 01:00
--- NOTE | 2017-05-19 09:04 | EKG ---
[facility] [address] [place] [address] Test Date: 2017-05-18 Test Time: 17:01:27 Pat Name: MITCH XIAO Department: Room: Gender: F Automatic Engraver: : 1970 Requested By: FRANSISCO SALGADO Order Number: [id number] Reading MD: Molina Rose Measurements Intervals Lane Rate: 64 P: 39 HI: 160 QRS: 48 QRSD: 94 T: 31 QT: 418 QTc: 435 Interpretive Statements SINUS RHYTHM Electronically Signed On 05-22-2017 9:53:32 CDT by Molina Rose
--- NOTE | 2017-05-19 09:12 | RAD ---
EXAM: CHEST 1 VIEW History: Dizziness, shortness of breath, chest discomfort COMPARISON: 10/08/2016 TECHNIQUE: Single portable radiograph of the chest FINDINGS: The cardiac silhouette is unremarkable. The lungs are clear bilaterally. The costophrenic sulci are clear and well demarcated. IMPRESSION: No radiographic evidence of an acute cardiopulmonary process.
== END 2017-05-18 23:46 | disposition home or self-care (01) ==
LOC: ER 16:49
DX: R51 Headache (principal); R07.89 Other chest pain; R00.2 Palpitations; M54.2 Cervicalgia; M54.9 Dorsalgia, unspecified; F41.9 Anxiety disorder, unspecified; E11.9 Type 2 diabetes mellitus without complications; I47.1 Supraventricular tachycardia
CPT/HCPCS: 36415; 71010; 71275; 74177; 80053; 84484; 85025; 85379; 93005; 96374; 99285; J2270; Q9967

== ENCOUNTER 2017-09-11 00:29 | Emergency (ER) | payer OTHER ==
[~2017-09-11] VITALS: Ht 170.2 cm; Wt 108.4 kg
[2017-09-11 00:29] VITALS: BP 111/78
--- NOTE | 2017-09-11 00:50 | PHYS DOC ---
Past Medical History Past Medical History: Anxiety, Diabetes-Type II, Other Additional Past Medical Histor: SVT Past Surgical History: Cholecystectomy Additional Past Surgical Histo: bilateral carpal tunnel, ablation Alcohol Use: Rarely Drug Use: None Adult General Chief Complaint Chief Complaint: LOWER EXT PAIN HPI HPI Patient is a 47 year old female who presents with complaint of right lower leg pain. Patient has noticed pain over the past 2-3 days. Patient is not sure of any inciting events that took place causing the pain. The patient states that she's noted pain localized to the inner aspect of her right lower calf. The patient has noticed mild swelling localized to that area but denies any diffuse swelling to the right lower extremity. Patient denies any history of DVT and nose with no clotting disorders that run in the family. Patient said no prolonged immobilization or extensive travel recently. Patient denies any chest pain or shortness of breath. Patient rates her pain currently as 5 out of 10. Patient states that the pain worsens when she walks and improves with rest. The patient came into the emergency department due to concern over the pain and wanted to be checked out to make sure she did not have any serious cause for the pain. Review of Systems Review of Systems Constitutional: Denies fever or chills [] Eyes: Denies change in visual acuity, redness, or eye pain [] HENT: Denies nasal congestion or sore throat [] Respiratory: Denies cough or shortness of breath [] Cardiovascular: Denies chest pain or edema[] GI: Denies abdominal pain, nausea, vomiting, bloody stools or diarrhea [] : Denies dysuria or hematuria [] Musculoskeletal: Right lower leg pain[] Integument: Denies rash or skin lesions [] Neurologic: Denies headache, focal weakness or sensory changes [] All other systems were reviewed and found to be within normal limits, except as documented in this note. Allergies Allergies Allergies Coded Allergies Type Severity Reaction Last Updated Verified No Known Drug Allergies 02/21/17 No Physical Exam Physical Exam Constitutional: Well developed, well nourished, no acute distress, non-toxic appearance. [] HENT: Normocephalic, atraumatic, bilateral external ears normal, oropharynx moist, no oral exudates, nose normal. [] Eyes: PERRLA, EOMI, conjunctiva normal, no discharge. [] Neck: Normal range of motion, no tenderness, supple, no stridor. [] Cardiovascular:Heart rate regular rhythm, no murmur [] Lungs & Thorax: Bilateral breath sounds clear to auscultation [] Abdomen: Bowel sounds normal, soft, no tenderness, no masses, no pulsatile masses. [] Skin: Warm, dry, no erythema, no rash. [] Back: No tenderness, no CVA tenderness. [] Extremities: No visible swelling to lower extremities, negative Homans sign, mild localized tenderness along distal portion of left head of gastrocnemius, distal pulses 2+, normal range of motion. [] Neurologic: Alert and oriented X 3, normal motor function, normal sensory function, no focal deficits noted. [] Current Patient Data Vital Signs Vital Signs Date Time Temp Pulse Resp B/P (MAP) Pulse Ox O2 Delivery O2 Flow Rate FiO2 09/11/17 00:29 98.6 76 18 96 Room Air 98.6 EKG EKG Not performed[] Radiology/Procedures Radiology/Procedures Not performed[] Course & Med Decision Making Course & Med Decision Making Pertinent Labs and Imaging studies reviewed. (See chart for details) Wells score for DVT is -2 placing patient in low risk group for DVT. The patient 's symptoms appear consistent with Muscle strain. Advised RICE therapy and recommended naproxen twice daily for the next 5-7 days for treatment. Advise follow-up with primary doctor in 1 week if symptoms are not improving. Advised return emergency department for any worsening symptoms. Patient voiced understanding and in agreement with treatment plan.[] Dragon Disclaimer Dragon Disclaimer This electronic medical record was generated, in whole or in part, using a voice recognition dictation system. Departure Departure Impression: Primary Impression: Strain of calf muscle Disposition: 01 HOME, SELF-CARE Condition: GOOD Referrals: Cristy CALDERA MD (PCP) Patient Instructions: Muscle Strain, RICE - Routine Care for Injuries Additional Instructions: Start on low-dose naproxen treatment (220mg twice a day) for 5 to 7 days. Follow -up with your primary doctor in 1 week if symptoms are not improving. Return to emergency department for any worsening symptoms. Problem Qualifiers Primary Impression: Strain of calf muscle Encounter type: initial encounter Laterality: right Qualified Codes: S86.811A - Strain of other muscle(s) and tendon(s) at lower leg level, right leg , initial encounter ASHLEY KAUFMAN MD Sep 11, 2017 00:50
== END 2017-09-11 00:50 | disposition home or self-care (01) ==
LOC: ER 00:29
DX: S86.811A Strain of other muscle(s) and tendon(s) at lower leg level, right leg, initial encounter (principal); F41.9 Anxiety disorder, unspecified; E11.9 Type 2 diabetes mellitus without complications; I47.1 Supraventricular tachycardia; G56.03 Carpal tunnel syndrome, bilateral upper limbs; Z90.49 Acquired absence of other specified parts of digestive tract; X58.XXXA Exposure to other specified factors, initial encounter; Y93.89 Activity, other specified; Y92.89 Other specified places as the place of occurrence of the external cause; Y99.8 Other external cause status
CPT/HCPCS: 99281

== ENCOUNTER → 2017-11-05 | Outpatient (CLI) | payer OTHER | END | disposition home or self-care (01) | LOC: MAMMO 07:47 | DX: Z12.31 Encounter for screening mammogram for malignant neoplasm of breast (principal) | CPT/HCPCS: 77063; 77067 ==

== ENCOUNTER → 2017-11-08 | Outpatient (CLI) | payer OTHER ==
[~2017-11-08] MED LIST changes: -GLIM4TAB2 PO; -HYDR-2758 PO; +IOHEXOL 180 MG/ML 10 ML VIAL.; -LORA0.5T PO; -METF100010 PO; -METF500T4 PO; -METO25TA4 PO; -OXYC-323 PO; -OXYC-327 PO; -PRED20TA PO; -PRED50TA PO; -PROAIR HFA8.5 GM INH; -PROM118S2 PO; -SERT25TA PO; -SERT50TA PO; -TRAM50TA PO; +methylPREDNISolone ACETATE 40 MG/ML VIAL.; +methylPREDNISolone ACETATE 80 MG/ML VIAL.
== END | disposition home or self-care (01) ==
LOC: PNCL 08:42
DX: M50.123 Cervical disc disorder at C6-C7 level with radiculopathy (principal); E11.9 Type 2 diabetes mellitus without complications; M19.90 Unspecified osteoarthritis, unspecified site; F41.9 Anxiety disorder, unspecified; Z87.891 Personal history of nicotine dependence; Z86.69 Personal history of other diseases of the nervous system and sense organs; Z90.49 Acquired absence of other specified parts of digestive tract; Z90.710 Acquired absence of both cervix and uterus; Z86.39 Personal history of other endocrine, nutritional and metabolic disease
CPT/HCPCS: 62321; J1030; J1040; Q9965

== ENCOUNTER → 2017-11-22 | Outpatient (CLI) | payer OTHER | END | disposition home or self-care (01) | LOC: PNCL 08:05 | DX: M50.10 Cervical disc disorder with radiculopathy, unspecified cervical region (principal); Z90.49 Acquired absence of other specified parts of digestive tract; E66.9 Obesity, unspecified; Z90.710 Acquired absence of both cervix and uterus; M19.90 Unspecified osteoarthritis, unspecified site; E11.40 Type 2 diabetes mellitus with diabetic neuropathy, unspecified; K76.9 Liver disease, unspecified; F41.9 Anxiety disorder, unspecified; Z87.891 Personal history of nicotine dependence | CPT/HCPCS: 62321; J1030; J1040; Q9965 ==

== ENCOUNTER → 2017-11-27 | Outpatient (CLI) | payer OTHER | END | disposition home or self-care (01) | LOC: MRI 08:28 | DX: M51.26 Other intervertebral disc displacement, lumbar region (principal); M51.27 Other intervertebral disc displacement, lumbosacral region; M48.07 Spinal stenosis, lumbosacral region | CPT/HCPCS: 72148 ==

== ENCOUNTER → 2017-12-06 | Outpatient (CLI) | payer OTHER | END | disposition home or self-care (01) | LOC: PNCL 08:01 | DX: M51.16 Intervertebral disc disorders with radiculopathy, lumbar region (principal); M48.061 Spinal stenosis, lumbar region without neurogenic claudication; M50.10 Cervical disc disorder with radiculopathy, unspecified cervical region | CPT/HCPCS: 99212 ==

== ENCOUNTER → 2017-12-20 | Outpatient (CLI) | payer OTHER | LOC: PNCL 07:44 | DX: M50.10 Cervical disc disorder with radiculopathy, unspecified cervical region (principal); M51.16 Intervertebral disc disorders with radiculopathy, lumbar region; Z90.710 Acquired absence of both cervix and uterus; Z90.49 Acquired absence of other specified parts of digestive tract; F41.8 Other specified anxiety disorders; E66.9 Obesity, unspecified; Z87.891 Personal history of nicotine dependence; E11.40 Type 2 diabetes mellitus with diabetic neuropathy, unspecified; Z79.4 Long term (current) use of insulin; M19.90 Unspecified osteoarthritis, unspecified site | CPT/HCPCS: 62321 ==

== ENCOUNTER 2018-02-18 00:50 | Emergency (ER) | payer OTHER ==
[2018-02-18] MEDS: KETOROLAC 60 MG/2 ML INJ. IM (01:51)
== END 2018-02-18 01:57 | disposition home or self-care (01) ==
LOC: ER 00:50
DX: S90.31XA Contusion of right foot, initial encounter (principal); E11.9 Type 2 diabetes mellitus without complications; W20.8XXA Other cause of strike by thrown, projected or falling object, initial encounter; Y93.89 Activity, other specified; Y99.8 Other external cause status; Y92.89 Other specified places as the place of occurrence of the external cause
CPT/HCPCS: 73630; 96372; 99284; J1885

== ENCOUNTER 2018-02-24 08:28 | Emergency (ER) | payer OTHER ==
[2018-02-24] MEDS: diazePAM 5 MG TABLET PO (09:12)
[2018-02-24] MEDS: fentaNYL PF VIAL 100 MCG/2 ML VIAL IM (09:14)
[2018-02-24] MEDS: HYDROcodon/IBUPROFEN 7.5/200MG 1 TAB TABLET PO (09:43)
== END 2018-02-24 10:20 | disposition home or self-care (01) ==
LOC: ER 10:20
DX: M50.30 Other cervical disc degeneration, unspecified cervical region (principal); E11.9 Type 2 diabetes mellitus without complications
CPT/HCPCS: 96372; 99283; J3010

== ENCOUNTER → 2018-03-18 | Outpatient (CLI) | payer OTHER ==
[2018-03-19 05:19] LABS: HEMOGLOBIN A1C 8.5 % (4.8-5.6)
[2018-03-19 10:23] LABS: MRSA BY PCR Negative (Negative)
== END | disposition home or self-care (01) ==
LOC: SURGPAT 14:16
DX: Z01.818 Encounter for other preprocedural examination (principal); M50.10 Cervical disc disorder with radiculopathy, unspecified cervical region; I10 Essential (primary) hypertension; E11.9 Type 2 diabetes mellitus without complications; K21.9 Gastro-esophageal reflux disease without esophagitis
CPT/HCPCS: 36415; 83036; 87641; 93005

== ENCOUNTER 2018-03-25 08:15 | Observation (INO) | payer OTHER ==
[~2018-03-25 08:15] MED LIST changes: -IOHEXOL 180 MG/ML 10 ML VIAL.; +MORPHINE SULFATE 2 MG/ML DISP.SYRIN. IV; +ONDANSETRON PF 4 MG/2 ML VIAL. IV; +PROCHLORPERAZINE 10 MG/2 ML VIAL. IV; +ceFAZolin 1GM IVPB FOR OMNI 1 GM/50 ML BAG IV; +fentaNYL PF VIAL 100 MCG/2 ML VIAL IV; -methylPREDNISolone ACETATE 40 MG/ML VIAL.; -methylPREDNISolone ACETATE 80 MG/ML VIAL.
[2018-03-25] MEDS ORDERED: MIDAZOLAM HCL/PF 2 MG/2 ML VIAL. ×2 (08:33→11:28)
[2018-03-25] MEDS ORDERED: REMIFENTANIL 1 MG VIAL. IV (08:33)
[2018-03-25] MEDS ORDERED: LIDOCAINE 2% PF Vial for OR 5 ML VIAL. (08:34)
[2018-03-25] MEDS ORDERED: PROPOFOL 20 ML IV (08:34)
[2018-03-25] MEDS ORDERED: GLYCOPYRROLATE 1 MG/5 ML VIAL. (08:34)
[2018-03-25] MEDS ORDERED: NEOSTIGMINE METHYLSULFATE 5 MG/5 ML SYRINGE. (08:34)
[2018-03-25] MEDS ORDERED: fentaNYL PF VIAL 100 MCG/2 ML VIAL ×2 (08:34→15:56)
[2018-03-25] MEDS ORDERED: PROPOFOL 50 ML IV ×2 (08:34→13:14)
[2018-03-25] MEDS ORDERED: DESFLURANE > 120 MINUTES IH ×2 (08:34→13:34)
[2018-03-25] MEDS ORDERED: DEXAMETHASONE SOD PHOS 20 MG/5 ML VIAL. (08:34)
[2018-03-25] MEDS ORDERED: ROCURONIUM 50 MG/5 ML VIAL. (08:34)
[2018-03-25] MEDS ORDERED: ONDANSETRON PF 4 MG/2 ML VIAL. (08:35)
[2018-03-25] MEDS: INSULIN ASPART 100 UNIT/ML 10ML VIAL. SQ ×2 (09:24→15:52)
[2018-03-25] MEDS: IV RINGERS,LACTATED 1000ML 1,000 ML IV (09:25)
[2018-03-25 09:30] LABS: POC GLUCOSE 323 mg/dL (70-99)
[2018-03-25 09:56] LABS: POC GLUCOSE 312 mg/dL (70-99)
[2018-03-25] MEDS: fentaNYL PF VIAL 100 MCG/2 ML VIAL IV ×7 (10:21→19:15)
[2018-03-25] MEDS ORDERED: FAMOTIDINE 20 MG/2 ML VIAL (11:28)
[2018-03-25] MEDS: THROMBIN TOPICAL 20,000 UNIT SPRAY.SYRN KIT TP (12:17)
[2018-03-25] MEDS: GELATIN SPONGE SIZE 100. (12:17)
[2018-03-25] MEDS ORDERED: PHENYLEPHRINE in 0.9% NACL PF 1 MG/10 ML SYRINGE. IV (12:17)
[2018-03-25] MEDS: BACITRACIN 50,000 UNIT in IV NORMAL SALINE 1000ML BAG 1,000 ML IRR (12:17)
[2018-03-25] MEDS: BUPIVAC MPF-EPI 0.5%-1:200000 30 ML VIAL. INJ (12:17)
[2018-03-25] MEDS ORDERED: DESFLURANE 61 TO 120 MINUTES IH (13:34)
[2018-03-25] MEDS ORDERED: MAG HYDROX/ALUMINUM HYD/SIMETH 30 ML ORAL.SUSP PO (13:45)
[2018-03-25] MEDS ORDERED: diphenhydrAMINE 50 MG/ML VIAL IV (13:45)
[2018-03-25] MEDS ORDERED: ACETAMINOPHEN 325 MG TABLET. PO (13:45)
[2018-03-25] MEDS ORDERED: CYCLOBENZAPRINE 10 MG TABLET. PO (13:45)
[2018-03-25] MEDS ORDERED: MAGNESIUM HYDROXIDE 2,400 MG/30 ML ORAL.SUSP. PO (13:45)
[2018-03-25] MEDS ORDERED: DEXTROSE 50% 25 GM / 50ML DISP.SYRIN. IV (13:45)
[2018-03-25] MEDS ORDERED: diphenhydrAMINE HCL 25 MG CAPSULE PO (13:45)
[2018-03-25] MEDS ORDERED: CALCIUM CARBONATE 500 MG TAB.CHEW PO (13:45)
[2018-03-25] MEDS ORDERED: 0.9 % SODIUM CHLORIDE 10 ML DISP.SYRIN. IV (13:45)
[2018-03-25] MEDS ORDERED: fentaNYL PF VIAL 100 MCG/2 ML VIAL IV (13:45)
[2018-03-25] MEDS ORDERED: GABAPENTIN 300 MG CAPSULE. PO (14:00)
[2018-03-25] MEDS: SERTRALINE 50 MG TABLET. PO (15:00)
[2018-03-25] MEDS: LIDOCAINE 1% PF 2 ML VIAL. ID (15:20)
[2018-03-25] MEDS ORDERED: MORPHINE SULFATE 2 MG/ML DISP.SYRIN. IV (15:30)
[2018-03-25 15:35] LABS: POC GLUCOSE 256 mg/dL (70-99)
[2018-03-25] MEDS ORDERED: MORPHINE SULFATE 2 MG/ML DISP.SYRIN. (15:38)
[2018-03-25] MEDS: oxyCODONE/APAP 10/325 1 TAB TABLET PO ×2 (16:03→21:11)
[2018-03-25] MEDS: POTASSIUM CL 20MEQ-0.45% NACL 1,000 ML IV (18:38)
[2018-03-25] MEDS: GLIMEPIRIDE 2 MG TABLET. PO (18:38)
[2018-03-25] MEDS: ESTRADIOL 1 MG TABLET. PO (18:42)
[2018-03-25] MEDS: INSULIN GLARGINE 300 UNITS/3 ML INSULN.PEN. SQ (21:08)
[2018-03-25] MEDS: DOCUSATE SODIUM 100 MG CAPSULE. PO (21:09)
[2018-03-25] MEDS: metFORMIN XR 500 MG TAB.ER.24H PO ×2 (21:10→21:30)
[2018-03-25] MEDS: GABAPENTIN 300 MG CAPSULE. PO (21:10)
[2018-03-25] MEDS: METOPROLOL TART IMMED RELEASE 25 MG TABLET. PO (21:14)
[2018-03-25 21:18] LABS: POC GLUCOSE 332 mg/dL (70-99)
[2018-03-25] MEDS: LORazepam 0.5 MG TABLET PO (22:00)
[2018-03-26] MEDS: oxyCODONE/APAP 10/325 1 TAB TABLET PO ×3 (01:40→13:12)
[2018-03-26 06:42] LABS: POC GLUCOSE 215 mg/dL (70-99)
[2018-03-26] MEDS: SERTRALINE 50 MG TABLET. PO (07:14)
[2018-03-26] MEDS: METOPROLOL TART IMMED RELEASE 25 MG TABLET. PO (07:15)
[2018-03-26] MEDS: metFORMIN XR 500 MG TAB.ER.24H PO (07:15)
[2018-03-26] MEDS: DOCUSATE SODIUM 100 MG CAPSULE. PO (07:16)
[2018-03-26] MEDS: GLIMEPIRIDE 2 MG TABLET. PO (07:16)
[2018-03-26] MEDS: INSULIN LISPRO 300 UNITS/3 ML INSULN.PEN. SQ ×2 (07:22→11:52)
[2018-03-26] MEDS ORDERED: LORazepam 0.5 MG TABLET PO (09:00)
[2018-03-26 11:00] LABS: POC GLUCOSE 206 mg/dL (70-99)
== END 2018-03-26 13:25 | disposition home or self-care (01) ==
LOC: SURG 08:15 → 4 SOUTHEST 17:19
PROVIDERS: Neurological Surgery
DX: M50.122 Cervical disc disorder at C5-C6 level with radiculopathy (principal); M77.9 Enthesopathy, unspecified; I25.10 Atherosclerotic heart disease of native coronary artery without angina pectoris; Z82.49 Family history of ischemic heart disease and other diseases of the circulatory system; Z83.3 Family history of diabetes mellitus; Z87.891 Personal history of nicotine dependence; Z90.49 Acquired absence of other specified parts of digestive tract; Z90.710 Acquired absence of both cervix and uterus
CPT/HCPCS: 20938; 76000; 82962; 88304; 88311; 96365; 96372; 96375; 96376; 97161-GP; A7015; C1713; G0378; G0379; J0690; J1100; J1815; J2001; J2250; J2270; J2370; J2405; J2704; J2710; J3010; J3490; J7030; S0028

== ENCOUNTER → 2018-06-19 | Outpatient (CLI) | payer OTHER ==
[2018-03-26 10:36] VITALS: BP 139/85
[~2018-06-19] MED LIST changes: +CYCL10TA2 PO; +ESTR1TAB15 PO; +GABA-586 PO; +GLIM4TAB2 PO; +HYDR-2758 PO; +INSU100I11 SQ; +INSU100V13 SQ; +LORA0.5T PO; +METF100010 PO; +METF500T16 PO; +METO25TA4 PO; -MORPHINE SULFATE 2 MG/ML DISP.SYRIN. IV; +NAPR-514 PO; +NAPR-683 PO; -ONDANSETRON PF 4 MG/2 ML VIAL. IV; +OXYC-323 PO; +OXYC-327 PO; +OXYC-411 PO; +OXYC5CAP PO; +PRED-220 PO; +PRED20TA PO; +PRED50TA PO; +PROAIR HFA8.5 GM INH; -PROCHLORPERAZINE 10 MG/2 ML VIAL. IV; +PROM118S5 PO; +SERT25TA PO; +SERT50TA PO; +TRAM50TA PO; -ceFAZolin 1GM IVPB FOR OMNI 1 GM/50 ML BAG IV; -fentaNYL PF VIAL 100 MCG/2 ML VIAL IV
--- NOTE | 2018-06-19 09:04 | RAD ---
AP and lateral views of the cervical spine 06/19/2018 INDICATION: Status post cervical fusion COMPARISON STUDY: Intraoperative fluoroscopic imaging March 25, 2018 Discussion: Redemonstration of postsurgical changes following anterior cervical fusion at C5-C6. There is some straightening of the cervical mock spine which may be positional or can occasionally reflect muscle spasm. No fracture or acute alignment abnormality is identified. Facet joints remain aligned. Craniocervical junction appears to remain intact on lateral view. No prevertebral soft tissue edema is seen. Anterior plate and screw construct is intact without radiographic evidence complication. IMPRESSION: Expected post surgical findings following C5-6 anterior fusion. Electronically signed by: Chava Patel MD (06/19/2018 9:00 AM) [facility]
== END | disposition home or self-care (01) ==
LOC: RAD 08:01
PROVIDERS: ATTEND Neurological Surgery
DX: M43.22 Fusion of spine, cervical region (principal); Z98.890 Other specified postprocedural states
CPT/HCPCS: 72040

== ENCOUNTER 2018-07-08 04:44 | Emergency (ER) | payer OTHER ==
[~2018-07-08] VITALS: Ht 170.2 cm; Wt 116.6 kg
--- NOTE | 2018-07-08 04:50 | PHYS DOC ---
Past Medical History Past Medical History: Anxiety, Diabetes-Type II, Other Additional Past Medical Histor: SVT, cataracts Past Surgical History: Cholecystectomy, Hysterectomy Additional Past Surgical Histo: bilateral carpal tunnel, ablation Alcohol Use: None Drug Use: None Adult General Chief Complaint Chief Complaint: Palpitations [facility] HPI Patient is a 48 year old female who presents with palpitations. The patient states she awoke with feeling a fluttering or stronger heartbeats compared to normal. She does have a prior history of some rare PVCs. She also has a history of anxiety and feels that her symptoms for very similar to her typical anxiety and panic symptoms. She did not have any chest pain or shortness of breath. She was able to go back to sleep but awoke again later in the night with similar symptoms so she decided to come to the ER. No recent illness. No fever, chills, cough. On arrival to the ER, she currently does not complain of ongoing palpitations but does have a few PVCs which she feels. Home, she did take a Ativan which was her normal location when this happens but she did not have relief of symptoms. Review of Systems Review of Systems Constitutional: Denies fever or chills Eyes: Denies change in visual acuity, redness, or eye pain HENT: Denies nasal congestion or sore throat Respiratory: Denies cough or shortness of breath Cardiovascular: No additional information not addressed in HPI GI: Denies abdominal pain, nausea, vomiting, bloody stools or diarrhea : Denies dysuria or hematuria Musculoskeletal: Denies back pain or joint pain Integument: Denies rash or skin lesions Neurologic: Denies headache, focal weakness or sensory changes Endocrine: Denies polyuria or polydipsia All other systems were reviewed and found to be within normal limits, except as documented in this note. Current Medications Current Medications Current Medications Medications (Trade) Dose Ordered Sig/Eh Start Time Stop Time Status Last Admin Dose Admin Lorazepam (Ativan) 0.5 mg 1X ONCE 07/08/18 05:30 07/08/18 05:31 DC 07/08/18 05:22 0.5 MG Allergies Allergies Allergies Coded Allergies Type Severity Reaction Last Updated Verified No Known Medication Allergies Allergy Unknown 03/25/18 Yes Physical Exam Physical Exam Constitutional: Well developed, well nourished, no acute distress, non-toxic HENT: Normocephalic, atraumatic, bilateral external ears normal, oropharynx moist Eyes: PERRLA, EOMI, conjunctiva normal Neck: Normal range of motion, no tenderness Cardiovascular:Heart rate regular rhythm Lungs & Thorax: Bilateral breath sounds clear to auscultation Abdomen: Bowel sounds normal, soft Skin: Warm, dry, no erythema, no rash Extremities: No edema Neurologic: Alert and oriented X 3 Psychologic: Affect normal, anxious Current Patient Data Vital Signs Vital Signs Date Time Temp Pulse Resp B/P (MAP) Pulse Ox O2 Delivery O2 Flow Rate FiO2 07/08/18 05:18 82 16 156/68 (97) 97 Room Air 07/08/18 04:45 97.9 97.9 Lab Values Laboratory Tests Test 07/08/18 04:54 White Blood Count 5.0 x10^3/uL (4.0-11.0) Red Blood Count 4.01 x10^6/uL (3.50-5.40) Hemoglobin 12.9 g/dL (12.0-15.5) Hematocrit 36.8 % (36.0-47.0) Mean Corpuscular Volume 92 fL (79-100) Mean Corpuscular Hemoglobin 32 pg (25-35) Mean Corpuscular Hemoglobin Concent 35 g/dL (31-37) Red Cell Distribution Width 13.1 % (11.5-14.5) Platelet Count 166 x10^3/uL (140-400) Neutrophils (%) (Auto) 45 % (31-73) Lymphocytes (%) (Auto) 43 % (24-48) Monocytes (%) (Auto) 7 % (0-9) Eosinophils (%) (Auto) 4 % (0-3) H Basophils (%) (Auto) 1 % (0-3) Neutrophils # (Auto) 2.2 x10^3uL (1.8-7.7) Lymphocytes # (Auto) 2.2 x10^3/uL (1.0-4.8) Monocytes # (Auto) 0.4 x10^3/uL (0.0-1.1) Eosinophils # (Auto) 0.2 x10^3/uL (0.0-0.7) Basophils # (Auto) 0.1 x10^3/uL (0.0-0.2) Sodium Level 136 mmol/L (136-145) Potassium Level 4.0 mmol/L (3.5-5.1) Chloride Level 99 mmol/L (98-107) Carbon Dioxide Level 32 mmol/L (21-32) Anion Gap 5 (6-14) L Blood Urea Nitrogen 13 mg/dL (7-20) Creatinine 0.9 mg/dL (0.6-1.0) Estimated GFR (Cockcroft-Gault) 67.1 Glucose Level 283 mg/dL (70-99) H Calcium Level 9.4 mg/dL (8.5-10.1) Troponin I Quantitative < 0.017 ng/mL (0.000-0.055) YD-Juf-D-Type Natriuretic Peptide 74 pg/mL (0-124) Laboratory Tests 07/08/18 04:54 Laboratory Tests 07/08/18 04:54 EKG EKG No STEMI Interpretation Time: 04:55 Radiology/Procedures Radiology/Procedures CXR: No acute findings. Course & Med Decision Making Course & Med Decision Making Pertinent Labs and Imaging studies reviewed. (See chart for details) 05;05: Patient is seen and examined. No acute distress. EKG normal. Rare PVC noted on monitor but patient is feeling them when they happen. Low suspicion for acute pathology based on HPI and PE but will check basic labs and troponin. 05:50: Patient received a dose of Ativan. She currently feels subjectively improved. Troponin is not elevated. EKG is normal. The rest of her lab panel did not reveal acute findings. Patient is discharged to home. She is provided a prescription for Ativan to use as needed. She will follow up with her primary care doctor or return to the ER for any new or worsening symptoms. Dragon Disclaimer Dragon Disclaimer This electronic medical record was generated, in whole or in part, using a voice recognition dictation system. Departure Departure Referrals: BOBBY LOPEZ MD (PCP) Scripts Lorazepam (LORAZEPAM) 0.5 Mg Tablet 1 TAB PO TID PRN for ANXIETY / AGITATION, #21 TAB Prov: SARA MONTAGUE DO 07/08/18 ASRA MONTAGUE DO Jul 08, 2018 04:50
--- NOTE | 2018-07-08 04:58 | EKG ---
[facility] [address] [place] [address] Test Date: 2018-07-08 Test Time: 04:49:41 Pat Name: MITCH XIAO Department: Room: Gender: F Director Of Marketing: : 1970 Requested By: SARA MONTAGUE Order Number: [id number] Reading MD: Measurements Intervals [place] Rate: 73 P: 43 [place]: 150 QRS: 54 QRSD: 94 T: 41 QT: 410 QTc: 455 Interpretive Statements SINUS RHYTHM NORMAL ECG No previous ECG available for comparison
[2018-07-08 05:05] LABS: BASO # 0.1 x10^3/uL (0.0-0.2); BASO % 1 % (0-3); EOS # 0.2 x10^3/uL (0.0-0.7); EOS % 4 % (0-3); HEMATOCRIT 36.8 % (36.0-47.0); HEMOGLOBIN 12.9 g/dL (12.0-15.5); LYMPH # 2.2 x10^3/uL (1.0-4.8); LYMPH % 43 % (24-48); MEAN CORPUSCULAR HEMOGLOBIN 32 pg (25-35); MEAN CORPUSCULAR HGB CONC 35 g/dL (31-37); MEAN CORPUSCULAR VOLUME 92 fL (79-100); MONO # 0.4 x10^3/uL (0.0-1.1); MONO % 7 % (0-9); NEUT # 2.2 x10^3uL (1.8-7.7); NEUT % 45 % (31-73); PLATELET COUNT 166 x10^3/uL (140-400); RED BLOOD COUNT 4.01 x10^6/uL (3.50-5.40); RED CELL DISTRIBUTION WIDTH 13.1 % (11.5-14.5)
[2018-07-08 05:13] LABS: CALCIUM 9.4 mg/dL (8.5-10.1); CREATININE 0.9 mg/dL (0.6-1.0); GFR 67.1
[2018-07-08 05:18] VITALS: BP 156/68
[2018-07-08] MEDS ORDERED: LORA0.5T PO (05:49)
--- NOTE | 2018-07-08 07:39 | RAD ---
Portable chest, 07/08/2018: HISTORY: Palpitations The heart size and pulmonary vascularity are normal. The lungs are clear. There is no evidence of pleural fluid. IMPRESSION: No acute cardiopulmonary abnormality is detected. Electronically signed by: Tyler Stevenson MD (07/08/2018 7:36 AM) [facility]
== END 2018-07-08 05:55 | disposition home or self-care (01) ==
LOC: ER 04:44
DX: R00.2 Palpitations (principal); E11.9 Type 2 diabetes mellitus without complications; F41.9 Anxiety disorder, unspecified
CPT/HCPCS: 36415; 71045; 80048; 83880; 84484; 85025; 93005; 96374; 99285; J2060

== ENCOUNTER → 2018-09-13 | Outpatient (CLI) | payer OTHER ==
[2018-07-08 05:50] VITALS: BP 144/63
[~2018-09-13] MED LIST changes: +ALBU2.5V8 INH; -GABA-586 PO; +GABA300C18 PO; -HYDR-2758 PO; +HYDR-2761 PO; -OXYC-323 PO; -OXYC-327 PO; +OXYC1TAB15 PO; +OXYC1TAB19 PO; -PROAIR HFA8.5 GM INH
--- NOTE | 2018-09-13 22:05 | RAD ---
EXAM: Cervical spine, 3 views. HISTORY: Pain. COMPARISON: None. FINDINGS: 3 views of cervical spine are obtained. There is instrumented intraspinal fusion and interbody fusion at C5-C6. The vertebral bodies and nonfused disc spaces are preserved. IMPRESSION: Instrumented fusion at C5-C6. No acute osseous finding. Electronically signed by: Nataly Reinoso MD (09/13/2018 10:00 PM) [facility]
== END | disposition home or self-care (01) ==
LOC: RAD 16:03
PROVIDERS: ATTEND Neurological Surgery
DX: M54.2 Cervicalgia (principal); Z98.1 Arthrodesis status
CPT/HCPCS: 72040

== ENCOUNTER → 2018-11-06 | Outpatient (CLI) | payer OTHER ==
[2018-07-08 05:50] VITALS: BP 144/63
[~2018-11-06] MED LIST changes: +ALBU2.5V8 IH; +INSU100I13 SQ; +METH4TAB2 PO
--- NOTE | 2018-11-06 10:15 | RAD ---
DATE: 11/06/2018 EXAM: MAMMO DEJAN SCREENING BILATERAL HISTORY: Routine screening COMPARISON: 11/05/2017 This study was interpreted with the benefit of Computerized Aided Detection (CAD). Breast Density: FATTY The breast parenchyma is primarily fatty replaced. Breast parenchyma level density A. FINDINGS: 2-D and 3-D tomosynthesis imaging was performed in CC and MLO projections. No new or enlarging breast densities are seen. Scattered benign type calcifications are again noted. No suspicious microcalcifications have developed. IMPRESSION: Stable mammograms without evidence of malignancy. BI-RADS CATEGORY: 2 BENIGN FINDING(S) RECOMMENDED FOLLOW-UP: 12M 12 MONTH FOLLOW-UP PQRS compliance statement: Patient information was entered into a reminder system with a target due date for the next mammogram. Mammography is a sensitive method for finding small breast cancers, but it does not detect them all and is not a substitute for careful clinical examination. A negative mammogram does not negate a clinically suspicious finding and should not result in delay in biopsying a clinically suspicious abnormality. "Our facility is accredited by the [employer] Mammography Program."
== END ==
LOC: MAMMO 08:36
PROVIDERS: ATTEND Obstetrics & Gynecology
DX: Z12.31 Encounter for screening mammogram for malignant neoplasm of breast (principal)
CPT/HCPCS: 77063; 77067

== ENCOUNTER → 2018-12-17 | Outpatient (CLI) | payer OTHER ==
[2018-07-08 05:50] VITALS: BP 144/63
[~2018-12-17] MED LIST changes: -ALBU2.5V8 IH; -METH4TAB2 PO
[2018-12-17 19:30] LABS: INFLUENZA A PATIENT NEGATIVE (NEGATIVE); INFLUENZA B PATIENT NEGATIVE (NEGATIVE)
== END | disposition home or self-care (01) ==
LOC: LAB 18:55
DX: R50.9 Fever, unspecified (principal)
CPT/HCPCS: 87804

== ENCOUNTER 2019-01-23 15:36 | Emergency (ER) | payer OTHER ==
[~2019-01-23] VITALS: Ht 170.2 cm; Wt 108.9 kg
[~2019-01-23 15:36] MED LIST changes: -INSU100I13 SQ
[2019-01-23 15:40] VITALS: BP 136/82
--- NOTE | 2019-01-23 16:07 | EKG ---
[facility] [address] [place] [address] Test Date: 2019-01-23 Test Time: 15:45:57 Pat Name: MITCH XIAO Department: Room: Gender: F Contact Center Associate: : 1970 Requested By: CHRISTOPHE LARA Order Number: [id number] Reading MD: Macario Siddiqi Measurements Intervals [place] Rate: 70 P: 49 [place]: 152 QRS: 58 QRSD: 94 T: 50 QT: 408 QTc: 443 Interpretive Statements SINUS RHYTHM Electronically Signed On 02-20-2019 13:14:32 CDT by Macario Siddiqi
[2019-01-23 16:19] LABS: BASO % 1 % (0-3); EOS # 0.2 x10^3/uL (0.0-0.7); EOS % 3 % (0-3); HEMATOCRIT 36.2 % (36.0-47.0); HEMOGLOBIN 12.6 g/dL (12.0-15.5); LYMPH # 2.2 x10^3/uL (1.0-4.8); LYMPH % 43 % (24-48); MEAN CORPUSCULAR HEMOGLOBIN 32 pg (25-35); MEAN CORPUSCULAR HGB CONC 35 g/dL (31-37); MEAN CORPUSCULAR VOLUME 91 fL (79-100); MONO # 0.4 x10^3/uL (0.0-1.1); MONO % 7 % (0-9); NEUT # 2.3 x10^3uL (1.8-7.7); NEUT % 46 % (31-73); PLATELET COUNT 163 x10^3/uL (140-400); RED BLOOD COUNT 3.97 x10^6/uL (3.50-5.40); RED CELL DISTRIBUTION WIDTH 13.6 % (11.5-14.5)
--- NOTE | 2019-01-23 16:22 | RAD ---
Single view of the chest. 01/23/2019 4:12 PM Indication: Chest pain Comparison: None Findings: There is no focal consolidation. There is no pleural effusion or pneumothorax. The cardiomediastinal silhouette and pulmonary vasculature are within normal limits. No acute osseous abnormalities are seen. Impression: No evidence of acute cardiopulmonary process. Electronically signed by: Chava Patel MD (01/23/2019 4:20 PM) [facility]
--- NOTE | 2019-01-23 16:24 | PHYS DOC ---
Past Medical History Past Medical History: Anxiety, Diabetes-Type II, Other Additional Past Medical Histor: SVT, cataracts Past Surgical History: Cholecystectomy, Hysterectomy, Other Additional Past Surgical Histo: bilateral carpal tunnel, ablation, 'spine surgery' Alcohol Use: Occasionally Drug Use: None Adult General Chief Complaint Chief Complaint: CHEST PAIN HPI HPI Patient is a 48 year old with a history of SVT and anxiety presents to the ED complaining of chest tightness 2 hours ago. Feels like her SVT is acting up. States she felt that she felt a pain in her left jaw and left shoulder. Describes the pain as sharp. Rates the pain as 4 out of 10. States she currently does not have any pain. Associated symptoms include palpitations. Patient sees Dr. Rose outpatient for cardiology. States that if she continues to have symptoms like her SVT he will send her to an premix operator concentrate. States that she did not call him today. Denies lower leg swelling, shortness of breath, abdominal pain, nausea/vomiting, fever, weakness, headache, diarrhea, recent travel. Review of Systems Review of Systems Constitutional: Denies fever or chills [] Eyes: Denies change in visual acuity, redness, or eye pain [] HENT: Denies nasal congestion or sore throat [] Respiratory: Denies cough or shortness of breath [] Cardiovascular: No additional information not addressed in HPI [] GI: Denies abdominal pain, nausea, vomiting, bloody stools or diarrhea [] : Denies dysuria or hematuria [] Musculoskeletal: Denies back pain or joint pain [] Integument: Denies rash or skin lesions [] Neurologic: Denies headache, focal weakness or sensory changes [] All other systems were reviewed and found to be within normal limits, except as documented in this note. Current Medications Current Medications Current Medications Medications (Trade) Dose Ordered Sig/Eh Start Time Stop Time Status Last Admin Dose Admin Lorazepam (Ativan) 1 mg 1X ONCE 01/23/19 16:30 01/23/19 16:31 DC 01/23/19 16:41 1 MG Allergies Allergies Allergies Coded Allergies Type Severity Reaction Last Updated Verified No Known Medication Allergies Allergy Unknown 03/25/18 Yes adhesive Allergy Unknown 01/23/19 Yes Physical Exam Physical Exam Constitutional: Well developed, well nourished, no acute distress, non-toxic appearance. [] HENT: Normocephalic, atraumatic Eyes: PERRLA, EOMI, conjunctiva normal, no discharge. [] Neck: Normal range of motion, no tenderness, supple, no stridor. [] Cardiovascular:Heart rate regular rhythm, no murmur [] Lungs & Thorax: Bilateral breath sounds clear to auscultation [] Abdomen: Bowel sounds normal, soft, no tenderness, no masses, no pulsatile masses. [] Skin: Warm, dry, no erythema, no rash. [] Back: No tenderness, no CVA tenderness. [] Extremities: No tenderness, no cyanosis, no clubbing, ROM intact, no edema. [] Neurologic: Alert and oriented X 3, normal motor function, normal sensory function, no focal deficits noted. [] Psychologic: Affect normal, judgement normal, mood normal. [] Current Patient Data Vital Signs Vital Signs Date Time Temp Pulse Resp B/P (MAP) Pulse Ox O2 Delivery O2 Flow Rate FiO2 01/23/19 15:40 97.7 68 18 136/82 (100) 98 Room Air 97.7 Lab Values Laboratory Tests Test 01/23/19 16:08 01/23/19 16:25 White Blood Count 5.0 x10^3/uL (4.0-11.0) Red Blood Count 3.97 x10^6/uL (3.50-5.40) Hemoglobin 12.6 g/dL (12.0-15.5) Hematocrit 36.2 % (36.0-47.0) Mean Corpuscular Volume 91 fL (79-100) Mean Corpuscular Hemoglobin 32 pg (25-35) Mean Corpuscular Hemoglobin Concent 35 g/dL (31-37) Red Cell Distribution Width 13.6 % (11.5-14.5) Platelet Count 163 x10^3/uL (140-400) Neutrophils (%) (Auto) 46 % (31-73) Lymphocytes (%) (Auto) 43 % (24-48) Monocytes (%) (Auto) 7 % (0-9) Eosinophils (%) (Auto) 3 % (0-3) Basophils (%) (Auto) 1 % (0-3) Neutrophils # (Auto) 2.3 x10^3uL (1.8-7.7) Lymphocytes # (Auto) 2.2 x10^3/uL (1.0-4.8) Monocytes # (Auto) 0.4 x10^3/uL (0.0-1.1) Eosinophils # (Auto) 0.2 x10^3/uL (0.0-0.7) Basophils # (Auto) 0.0 x10^3/uL (0.0-0.2) D-Dimer (Diana) 0.30 ug/mlFEU (0.00-0.50) Sodium Level 136 mmol/L (136-145) Potassium Level 4.0 mmol/L (3.5-5.1) Chloride Level 100 mmol/L (98-107) Carbon Dioxide Level 27 mmol/L (21-32) Anion Gap 9 (6-14) Blood Urea Nitrogen 12 mg/dL (7-20) Creatinine 0.9 mg/dL (0.6-1.0) Estimated GFR (Cockcroft-Gault) 67.1 BUN/Creatinine Ratio 13 (6-20) Glucose Level 194 mg/dL (70-99) H Calcium Level 9.2 mg/dL (8.5-10.1) Total Bilirubin 0.7 mg/dL (0.2-1.0) Aspartate Amino Transferase (AST) 54 U/L (15-37) H Alanine Aminotransferase (ALT) 66 U/L (14-59) H Alkaline Phosphatase 50 U/L (46-116) Troponin I Quantitative < 0.017 ng/mL (0.000-0.055) Total Protein 7.9 g/dL (6.4-8.2) Albumin 3.7 g/dL (3.4-5.0) Albumin/Globulin Ratio 0.9 (1.0-1.7) L Lipase 722 U/L (73-393) H Thyroid Stimulating Hormone (TSH) 1.933 uIU/mL (0.358-3.74) Urine Collection Type Void Urine Color Straw Urine Clarity Clear Urine pH 5.5 Urine Specific [place] 1.010 Urine Protein Negative mg/dL (NEG-TRACE) Urine Glucose (UA) Negative mg/dL (NEG) Urine Ketones (Stick) Negative mg/dL (NEG) Urine Blood Negative (NEG) Urine Nitrite Negative (NEG) Urine Bilirubin Negative (NEG) Urine Urobilinogen Dipstick 0.2 mg/dL (0.2 mg/dL) Urine Leukocyte Esterase Negative (NEG) Urine RBC 0 /HPF (0-2) Urine WBC 0 /HPF (0-4) Urine Squamous Epithelial Cells Few /LPF Urine Bacteria Mod /HPF (0-FEW) Laboratory Tests 01/23/19 16:08 Laboratory Tests 01/23/19 16:08 EKG EKG []EKG shows Sinus Rhythm at 70 BPM. No STEMI. Radiology/Procedures Radiology/Procedures []PROCEDURE: PORTABLE CHEST 1V Single view of the chest. 01/23/2019 4:12 PM Indication: Chest pain Comparison: None Findings: There is no focal consolidation. There is no pleural effusion or pneumothorax. The cardiomediastinal silhouette and pulmonary vasculature are within normal limits. No acute osseous abnormalities are seen. Impression: No evidence of acute cardiopulmonary process. Course & Med Decision Making Course & Med Decision Making Pertinent Labs and Imaging studies reviewed. (See chart for details) []Discussed case with Cardiology, Dr. Siddiqi. Agrees with assessment. EKG WNL, Negative troponin and dimer. States patient can follow-up outpatient. Patient feeling better after getting the ativan. Discussed the importance of follow-up and reasons to return to the ED. Patient understands and agrees with plan. Dragon Disclaimer Dragon Disclaimer This electronic medical record was generated, in whole or in part, using a voice recognition dictation system. Departure Departure Impression: Primary Impression: Palpitations Referrals: BOBBY LOPEZ MD (PCP) Patient Instructions: Anxiety and Panic Attacks, Palpitations CHRISTOPHE LARA January 23, 2019 16:23
[2019-01-23 16:29] LABS: CALCIUM 9.2 mg/dL (8.5-10.1); CREATININE 0.9 mg/dL (0.6-1.0); GFR 67.1
[2019-01-23 16:35] LABS: ALBUMIN 3.7 g/dL (3.4-5.0); ALBUMIN/GLOBULIN RATIO 0.9 (1.0-1.7); TOTAL BILIRUBIN 0.7 mg/dL (0.2-1.0); TOTAL PROTEIN 7.9 g/dL (6.4-8.2)
[2019-01-23 16:37] LABS: BILIRUBIN,URINE NEGATIVE (NEG); CLARITY,URINE CLEAR; NITRITE,URINE NEGATIVE (NEG); PH,URINE 5.5; PROTEIN,URINE NEGATIVE (NEG-TRACE); UROBILINOGEN,URINE 0.2 mg/dL (0.2 mg/dL)
[2019-01-23 16:47] LABS: COLOR,URINE STRAW
[2019-01-23 16:48] LABS: RBC,URINE 0 /HPF (0-2); WBC,URINE 0 /HPF (0-4)
[2019-01-23 16:49] LABS: BACTERIA,URINE MOD /HPF (0-FEW); SQUAMOUS EPITHELIAL CELL,UR FEW /LPF
[2019-02-14] MEDS ORDERED: INSU100I13 SQ (14:23)
== END 2019-01-23 17:32 | disposition home or self-care (01) ==
LOC: ER 15:36
DX: R00.2 Palpitations (principal); R07.89 Other chest pain; M25.512 Pain in left shoulder; R68.84 Jaw pain; F41.9 Anxiety disorder, unspecified; E11.9 Type 2 diabetes mellitus without complications; Z88.8 Allergy status to other drugs, medicaments and biological substances
CPT/HCPCS: 36415; 71045; 80053; 81001; 83690; 84443; 84484; 85025; 85379; 93005; 96374; 99285; J2060

== ENCOUNTER 2019-02-17 10:29 | Day surgery (SDC) | payer OTHER ==
[~2019-02-17] VITALS: Ht 170.2 cm; Wt 108.0 kg
[~2019-02-17 10:29] MED LIST changes: +CIPROFLOXACIN 0.3% OPHTH SOLUTION 5ML BOTTLE. OS ONE; +HYDROmorphone 2 MG/ML VIAL IV PRN; +INSU100I13 SQ; +IV RINGERS,LACTATED 1000ML 1,000 ML IV SCH; +LIDOCAINE 1% PF 2 ML VIAL. ID PRN; +LIDOCAINE 2% JELLY 6ML IN APPLICATOR. MM SCH; +MORPHINE SULFATE 2 MG/ML VIAL. IV PRN; +ONDANSETRON PF 4 MG/2 ML VIAL. IV PRN; +PROCHLORPERAZINE 10 MG/2 ML VIAL. IV PRN; +PROPARACAINE 0.5% OPHTH SOLUTION 15ML BOTTLE. OS ONE; +fentaNYL PF VIAL 100 MCG/2 ML VIAL IV PRN
[2019-02-17] MEDS ORDERED: NEO/POLYMYX/DEXAMETH OPHTH OINTMENT 3.5GM TUBE. ONE ×2 (10:55→12:00)
[2019-02-17] MEDS ORDERED: BALANCED SALT IRRIG OPHTH SOLN 15 ML BOTTLE. ONE ×2 (10:55→10:56)
[2019-02-17] MEDS: CYCLOPENTOLATE 1% OPTH SOLUTION 2ML BOTTLE. OS SCH ×3 (10:55→11:09)
[2019-02-17] MEDS ORDERED: LIDOCAINE 1% PF 2 ML VIAL. ONE ×2 (10:55→12:00)
[2019-02-17] MEDS: PHENYLEPHRINE 10% OPHTH SOLUTION 5ML BOTTLE. OS SCH ×3 (10:56→11:08)
[2019-02-17] MEDS ORDERED: CHONDROIT-SOD-HYALURONATE KIT. ONE ×2 (10:56→12:00)
[2019-02-17] MEDS ORDERED: CHONDROITIN-SOD-HYALURONATE 0.5 ML DISP.SYRIN. ONE ×2 (10:57→12:00)
[2019-02-17] MEDS ORDERED: MIDAZOLAM HCL/PF 2 MG/2 ML VIAL. ONE ×2 (11:58→12:00)
[2019-02-17 13:10] VITALS: BP 134/72
--- NOTE | 2019-02-17 13:55 | OP ---
DATE OF SURGERY: 02/17/2019 PREOPERATIVE DIAGNOSIS: Presenile cataract, left eye. POSTOPERATIVE DIAGNOSIS: Presenile cataract, left eye. PROCEDURE: Phacoemulsification with posterior chamber lens implant, left eye. ANESTHESIA: Local with MAC. DESCRIPTION OF PROCEDURE: The patient's dilating and anesthetic drops were applied in the outpatient holding area. The patient was then brought to the operating room, positioned on the table. The eye was prepped and draped in the usual sterile manner for an intraocular procedure. A lid speculum was placed between the eyelids, and the operating microscope was brought into position. There was good pupillary dilation. A paracentesis incision was made inferior temporally and 1% lidocaine injected in the anterior chamber. This was followed by injection of Viscoat. The primary 2.4 mm incision was then made and a capsulorrhexis was performed without difficulty. The lens nucleus was phacoemulsified with the phaco handpiece and then the cortical cleanup was done with the I/A handpiece. Provisc was then used to insufflate the bag and from the anterior chamber. A 16.5 posterior chamber lens implant was then placed into the bag without difficulty. The Provisc was aspirated with the I/A handpiece. The eye was reformed and the wound hydrated and the eye was pressurized. The wound was checked for leaks, and there were none. The speculum and drape were removed and Maxitrol ointment instilled in the conjunctival sac, and the eye was shielded. The patient was taken to the recovery room in satisfactory condition. There were no complications, and I will see the patient in the next 48 hours in my office. K CRISTHIAN WAGNER MD DR: MICHAEL/candelario JOB#: [id number] / [id number]
== END 2019-02-17 13:15 | disposition home or self-care (01) ==
LOC: SURG 10:29
PROVIDERS: ATTEND Ophthalmology
DX: H26.9 Unspecified cataract (principal); E11.9 Type 2 diabetes mellitus without complications; Z72.89 Other problems related to lifestyle; Z79.84 Long term (current) use of oral hypoglycemic drugs
CPT/HCPCS: 66984; C1780; J0171; J2250

== ENCOUNTER 2019-02-24 10:14 | Day surgery (SDC) | payer OTHER ==
[2019-02-24] MEDS: PHENYLEPHRINE 10% OPHTH SOLUTION 5ML BOTTLE. OD SCH ×3 (06:18→11:18)
[~2019-02-24 10:14] MED LIST changes: +BALANCED SALT IRRIG OPHTH SOLN 15 ML BOTTLE. ONE; +CHONDROIT-SOD-HYALURONATE KIT. ONE; +CIPROFLOXACIN 0.3% OPHTH SOLUTION 5ML BOTTLE. OD ONE; -CIPROFLOXACIN 0.3% OPHTH SOLUTION 5ML BOTTLE. OS ONE; +LIDOCAINE 1% PF 2 ML VIAL. ONE; +NEO/POLYMYX/DEXAMETH OPHTH OINTMENT 3.5GM TUBE. ONE; +PROPARACAINE 0.5% OPHTH SOLUTION 15ML BOTTLE. OD ONE; -PROPARACAINE 0.5% OPHTH SOLUTION 15ML BOTTLE. OS ONE
[2019-02-24] MEDS: CYCLOPENTOLATE 1% OPTH SOLUTION 2ML BOTTLE. OD SCH ×3 (11:30→11:40)
[2019-02-24] MEDS ORDERED: PROPOFOL 20 ML IV ONE (11:47)
[2019-02-24] MEDS ORDERED: MIDAZOLAM HCL/PF 2 MG/2 ML VIAL. ONE (11:57)
[2019-02-24 13:45] VITALS: BP 144/65
--- NOTE | 2019-02-24 13:45 | OP ---
DATE OF SURGERY: 02/24/2019 PREOPERATIVE DIAGNOSIS: Presenile cataract, right eye. POSTOPERATIVE DIAGNOSIS: Presenile cataract, right eye. PROCEDURE: Phacoemulsification with posterior chamber lens implant, right eye. ANESTHESIA: Local with MAC. DESCRIPTION OF PROCEDURE: The patient's dilating and anesthetic drops were applied in the outpatient department and the [place] balloon cuff was used for about 15 minutes. The patient was then brought to the operating room and positioned on the table, and the right eye was prepped and draped in the usual sterile manner for an intraocular procedure. A lid speculum was placed between the eyelids, and the operating microscope was brought into position. There was good pupillary dilation. A paracentesis incision was made superior temporally and 1% lidocaine injected in the anterior chamber, followed by injection of Viscoat for anterior chamber maintenance. A 6 mm capsulorrhexis was made without difficulty and then the lens nucleus was phacoemulsified with the phaco handpiece. Cortical cleanup was done with the I/A handpiece. The bag was formed with Provisc, and a posterior chamber lens placed into the bag without difficulty. The Provisc was aspirated with the I/A handpiece. The eye was pressurized and the wound hydrated and the wound was then checked for leaks, and there were none. The speculum and drape were removed. Maxitrol ointment was instilled into the conjunctival sac and the eye was shielded. The patient was taken to the recovery room in satisfactory condition. There were no complications. I will see the patient tomorrow in my office. K CRISTHIAN WAGNER MD DR: MICHAEL/candelario JOB#: [id number] / [id number]
== END 2019-02-24 13:55 | disposition home or self-care (01) ==
LOC: SURG 10:14
PROVIDERS: ATTEND Ophthalmology
DX: H26.8 Other specified cataract (principal); Z79.4 Long term (current) use of insulin; Z90.49 Acquired absence of other specified parts of digestive tract; Z72.89 Other problems related to lifestyle
CPT/HCPCS: 66984; C1780; J0171; J2250; J2704

== ENCOUNTER 2019-04-20 05:03 | Emergency (ER) | payer OTHER ==
[~2019-04-20] VITALS: Ht 167.6 cm; Wt 112.0 kg
[~2019-04-20 05:03] MED LIST changes: -BALANCED SALT IRRIG OPHTH SOLN 15 ML BOTTLE. ONE; -CHONDROIT-SOD-HYALURONATE KIT. ONE; -CIPROFLOXACIN 0.3% OPHTH SOLUTION 5ML BOTTLE. OD ONE; -HYDROmorphone 2 MG/ML VIAL IV PRN; -IV RINGERS,LACTATED 1000ML 1,000 ML IV SCH; -LIDOCAINE 1% PF 2 ML VIAL. ID PRN; -LIDOCAINE 1% PF 2 ML VIAL. ONE; -LIDOCAINE 2% JELLY 6ML IN APPLICATOR. MM SCH; -MORPHINE SULFATE 2 MG/ML VIAL. IV PRN; -NEO/POLYMYX/DEXAMETH OPHTH OINTMENT 3.5GM TUBE. ONE; -ONDANSETRON PF 4 MG/2 ML VIAL. IV PRN; -PROCHLORPERAZINE 10 MG/2 ML VIAL. IV PRN; -PROPARACAINE 0.5% OPHTH SOLUTION 15ML BOTTLE. OD ONE; -fentaNYL PF VIAL 100 MCG/2 ML VIAL IV PRN
--- NOTE | 2019-04-20 05:26 | PHYS DOC ---
Past Medical History Past Medical History: Anxiety, Diabetes-Type II, Other Additional Past Medical Histor: SVT, cataracts Past Surgical History: Cholecystectomy, Hysterectomy, Other Additional Past Surgical Histo: bilateral carpal tunnel, ablation, 'spine surgery' Smoking: Quit Greater Than 1 Year Alcohol Use: Occasionally Drug Use: None Adult General Chief Complaint Chief Complaint: SHORTNESS OF BREATH HPI HPI 49-year-old female presents with report of shortness of breath and tightness in her chest which is been progressively worsening since Sunday. Patient reports a tight squeezing feeling in her upper back and rib cage. Reports worse with deep inspiration. Denies leg swelling or calf tenderness. Denies history of DVT/PE. Patient denies any cough. Cardiac risk factors for diabetes mellitus, hypertension, former smoker, and family history. Denies trauma. Review of Systems Review of Systems Constitutional: Denies fever or chills Eyes: Denies redness or eye pain HENT: Denies nasal congestion or sore throat Respiratory: Denies cough; reports shortness of breath Cardiovascular: Reports chest pain; denies palpitations GI: Denies abdominal pain, nausea, or vomiting : Denies dysuria or hematuria Musculoskeletal: Denies back pain or joint pain Integument: Denies rash or skin lesions Neurologic: Denies headache, focal weakness or sensory changes Complete systems were reviewed and found to be within normal limits, except as documented in this note. Current Medications Current Medications Current Medications Medications (Trade) Dose Ordered Sig/Eh Start Time Stop Time Status Last Admin Dose Admin Aspirin (Julieta Aspirin) 325 mg 1X ONCE 04/20/19 06:00 04/20/19 06:01 Dexamethasone Sodium Phosphate (Decadron) 10 mg 1X ONCE 04/20/19 06:00 04/20/19 06:01 Allergies Allergies Allergies Coded Allergies Type Severity Reaction Last Updated Verified adhesive Allergy Intermediate 02/24/19 Yes Physical Exam Physical Exam Constitutional: Well developed, well nourished, no acute distress, non-toxic appearance HENT: Normocephalic, atraumatic, oropharynx moist Eyes: Conjunctiva normal, no discharge Neck: Normal range of motion, no tenderness, supple Cardiovascular: Heart rate normal, regular rhythm Lungs & Thorax: Diminished at bases, no wheezing Abdomen: Soft, no tenderness Skin: Warm, dry, no erythema, no rash Back: No tenderness, no CVA tenderness Extremities: No tenderness, ROM intact, no edema Neurologic: Alert and oriented X 3, no focal deficits noted Psychologic: Affect normal, judgement normal, mood normal Current Patient Data Vital Signs Vital Signs Date Time Temp Pulse Resp B/P (MAP) Pulse Ox O2 Delivery O2 Flow Rate FiO2 04/20/19 05:04 97.7 75 18 136/82 (100) 98 Room Air 97.7 EKG EKG @0517 NSR at 61 bpm, NO ST elevation, Q wave in III, QRS 92ms, QT/QTC 434/443ms Radiology/Procedures Radiology/Procedures [] Course & Med Decision Making Course & Med Decision Making Patient with cardiac risk factors presents with report of chest discomfort and pleuritic pain. Denies leg swelling or calf tenderness. Denies known trauma. EKG stable. Aspirin provided. Symptomatic treatment provided with DuoNeb and steroid. Labs obtained and pending. HEART score 4 pending troponin level. Sign out given to Dr. Hauser for further evaluation and final disposition. Discussed current findings and plan with patient and family, who acknowledge understanding and agreement. Dragon Disclaimer Dragon Disclaimer This electronic medical record was generated, in whole or in part, using a voice recognition dictation system. Departure Departure Impression: Primary Impression: Chest pain Referrals: BOBBY LOPEZ MD (PCP) The HEART Score for CP Pts HEART Score for Chest Pain: HEART Score for Chest Pain Response (Comments) Value History Moderately Suspicious 1 ECG Normal 0 Age >45 - < 65 1 Risk Factors >3 Risk Factors or Hx CAD 2 Total 4 Risk Factors: Risk Factors: DM, Current or recent (<one month) smoker, HTN, HLP, family history of CAD, obesity. Risk Scores: Score 0 - 3: 2.5% MACE over next 6 weeks - Discharge Home Score 4 - 6: 20.3% MACE over next 6 weeks - Admit for Clinical Observation Score 7 - 10: 72.7% MACE over next 6 weeks - Early Invasive Strategies Problem Qualifiers Primary Impression: Chest pain Chest pain type: unspecified Qualified Codes: R07.9 - Chest pain, unspecified LIZA GARCÍA DO Apr 20, 2019 05:26
[2019-04-20 05:49] LABS: CALCIUM 9.1 mg/dL (8.5-10.1); GFR 59.2; POTASSIUM 4.2 mmol/L (3.5-5.1)
[2019-04-20 05:50] LABS: BASO # 0.1 x10^3/uL (0.0-0.2); BASO % 1 % (0-3); EOS # 0.2 x10^3/uL (0.0-0.7); EOS % 3 % (0-3); HEMATOCRIT 38.5 % (36.0-47.0); HEMOGLOBIN 13.2 g/dL (12.0-15.5); LYMPH # 2.5 x10^3/uL (1.0-4.8); LYMPH % 49 % (24-48); MEAN CORPUSCULAR HEMOGLOBIN 31 pg (25-35); MEAN CORPUSCULAR HGB CONC 34 g/dL (31-37); MEAN CORPUSCULAR VOLUME 91 fL (79-100); MONO # 0.4 x10^3/uL (0.0-1.1); MONO % 7 % (0-9); NEUT % 39 % (31-73); PLATELET COUNT 176 x10^3/uL (140-400); RED BLOOD COUNT 4.21 x10^6/uL (3.50-5.40); RED CELL DISTRIBUTION WIDTH 13.6 % (11.5-14.5)
[2019-04-20 05:55] LABS: ALBUMIN 3.7 g/dL (3.4-5.0); ALBUMIN/GLOBULIN RATIO 0.8 (1.0-1.7); MAGNESIUM 1.7 mg/dL (1.8-2.4); TOTAL BILIRUBIN 0.8 mg/dL (0.2-1.0); TOTAL PROTEIN 8.1 g/dL (6.4-8.2)
[2019-04-20] MEDS ORDERED: ASPIRIN 325 MG TABLET PO ONE (06:00)
[2019-04-20] MEDS ORDERED: DEXAMETHASONE SOD PHOS 20 MG/5 ML VIAL. IV ONE (06:00)
[2019-04-20 06:10] LABS: BILIRUBIN,URINE NEGATIVE (NEG); CLARITY,URINE CLEAR; COLOR,URINE YELLOW; NITRITE,URINE NEGATIVE (NEG); PH,URINE 5.5; PROTEIN,URINE NEGATIVE (NEG-TRACE); UROBILINOGEN,URINE 0.2 mg/dL (0.2 mg/dL)
[2019-04-20] MEDS ORDERED: IPRATRPIUM/ALBUTEROL 0.5/2.5MG 3 ML NEBU. NEB ONE (06:15)
[2019-04-20 06:24] LABS: BACTERIA,URINE 0 /HPF (0-FEW); RBC,URINE 0 /HPF (0-2); SQUAMOUS EPITHELIAL CELL,UR FEW /LPF; WBC,URINE 0 /HPF (0-4)
[2019-04-20] MEDS ORDERED: MAGNESIUM SULFATE 2GM 50 ML IV ONE (06:30)
[2019-04-20 06:55] LABS: PROTHROMBIN TIME PATIENT 13.4 SEC (11.7-14.0)
[2019-04-20 07:01] LABS: D-DIMER 0.4 ug/mlFEU (0.00-0.50)
[2019-04-20 07:30] VITALS: BP 136/80
[2019-04-20] MEDS ORDERED: ALBU2.5V8 IH (07:42)
[2019-04-20] MEDS ORDERED: METH4TAB2 PO (07:42)
--- NOTE | 2019-04-20 08:14 | RAD ---
Chest radiograph 04/20/2019 7:01 AM INDICATION: Chest pain, shortness of air for 3 days COMPARISON: January 23, 2019 TECHNIQUE: Portable upright frontal view of the chest is provided. FINDINGS: The cardiomediastinal silhouette is within normal limits. There are no pleural effusions. There is no pulmonary vascular congestion. There is no pneumothorax. The lungs are clear. Anterior cervical discectomy and fusion hardware is identified C7 IMPRESSION: No acute cardiopulmonary process. Electronically signed by: Katherine Ceballos MD (04/20/2019 8:11 AM) [facility]
--- NOTE | 2019-04-21 06:48 | EKG ---
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
== END 2019-04-20 08:03 | disposition home or self-care (01) ==
LOC: ER 05:03
DX: R07.89 Other chest pain (principal); R06.02 Shortness of breath; E11.9 Type 2 diabetes mellitus without complications; Z90.49 Acquired absence of other specified parts of digestive tract; Z90.710 Acquired absence of both cervix and uterus; Z87.891 Personal history of nicotine dependence; Z88.8 Allergy status to other drugs, medicaments and biological substances
CPT/HCPCS: 36415; 71045; 80053; 81001; 81025; 82553; 83690; 83735; 83880; 84484; 85025; 85379; 85610; 85730; 93005; 94640; 96365; 96375; 99285; J1100; J3475; J7620

== ENCOUNTER → 2019-04-25 | Outpatient (CLI) | payer OTHER ==
[2019-04-20 07:30] VITALS: BP 136/80
[~2019-04-25] MED LIST changes: +ALBU2.5V8 IH; +METH4TAB2 PO
[2019-04-25 11:57] LABS: ALBUMIN 3.8 g/dL (3.4-5.0); ALBUMIN/GLOBULIN RATIO 0.8 (1.0-1.7); CALCIUM 9.1 mg/dL (8.5-10.1); GFR 59.2; POTASSIUM 4.3 mmol/L (3.5-5.1); TOTAL BILIRUBIN 1.1 mg/dL (0.2-1.0); TOTAL PROTEIN 8.3 g/dL (6.4-8.2)
[2019-04-25 12:03] LABS: CHOLESTEROL/HDL RATIO 4.8
[2019-04-26 06:10] LABS: HEMOGLOBIN A1C 8.6 % (4.8-5.6)
== END | disposition home or self-care (01) ==
LOC: LAB 08:51
PROVIDERS: ATTEND Family Medicine
DX: E11.319 Type 2 diabetes mellitus with unspecified diabetic retinopathy without macular edema (principal)
CPT/HCPCS: 36415; 80053; 80061; 83036

== ENCOUNTER 2019-05-28 18:30 | Emergency (ER) | payer OTHER ==
[~2019-05-28] VITALS: Ht 167.6 cm; Wt 112.0 kg
[2019-05-28 19:07] LABS: BASO % 1 % (0-3); EOS # 0.2 x10^3/uL (0.0-0.7); EOS % 3 % (0-3); HEMATOCRIT 37.1 % (36.0-47.0); HEMOGLOBIN 12.9 g/dL (12.0-15.5); LYMPH # 2.6 x10^3/uL (1.0-4.8); LYMPH % 46 % (24-48); MEAN CORPUSCULAR HEMOGLOBIN 32 pg (25-35); MEAN CORPUSCULAR HGB CONC 35 g/dL (31-37); MEAN CORPUSCULAR VOLUME 92 fL (79-100); MONO # 0.4 x10^3/uL (0.0-1.1); MONO % 7 % (0-9); NEUT # 2.5 x10^3/uL (1.8-7.7); NEUT % 44 % (31-73); PLATELET COUNT 177 x10^3/uL (140-400); RED BLOOD COUNT 4.04 x10^6/uL (3.50-5.40); RED CELL DISTRIBUTION WIDTH 13.6 % (11.5-14.5); WHITE BLOOD COUNT 5.7 x10^3/uL (4.0-11.0)
[2019-05-28 19:20] LABS: CALCIUM 9.1 mg/dL (8.5-10.1); CREATININE 0.9 mg/dL (0.6-1.0); GFR 66.8; POTASSIUM 3.7 mmol/L (3.5-5.1)
--- NOTE | 2019-05-28 19:21 | PHYS DOC ---
Past Medical History Past Medical History: Anxiety, Diabetes-Type II, Other Additional Past Medical Histor: SVT, cataracts Past Surgical History: Cholecystectomy, , Hysterectomy, Other Additional Past Surgical Histo: bilateral carpal tunnel, ablation, 'spine surgery',NECK FUSION Alcohol Use: Rarely Drug Use: None Adult General Chief Complaint Chief Complaint: Palpitations HPI HPI Patient is a 49-year-old female who presents with complaint of palpitations that started a couple hours prior to arrival to the emergency room. Patient indicates that she has a history of SVT and symptoms are very similar to when she has episodes of SVT. She states that today symptoms are little bit different as she has some pain in her posterior left shoulder that she describes as an ache. She denies any actual chest pain. She also denies any nausea or diaphoresis. Patient also states that she has a headache in the frontal region that she rates at a 5 out of 10. She states that symptom onset was at work. She states that she was supposed to have an appointment with executive administrator recently but had to reschedule.[] Review of Systems Review of Systems Constitutional: Denies fever or chills [] Respiratory: Denies cough or shortness of breath [] Cardiovascular: No additional information not addressed in HPI [] GI: Denies abdominal pain, nausea, vomiting or diarrhea [] Integument: Denies rash or skin lesions [] Neurologic: Complains of headache without focal weakness or sensory changes [] All other systems were reviewed and found to be within normal limits, except as documented in this note. Current Medications Current Medications Current Medications Medications (Trade) Dose Ordered Sig/Eh Start Time Stop Time Status Last Admin Dose Admin Fentanyl Citrate (Fentanyl 2ml Vial) 50 mcg 1X ONCE 05/28/19 21:30 05/28/19 21:31 05/28/19 21:04 50 MCG Ketorolac Tromethamine (Toradol 30mg Vial) 30 mg 1X ONCE 05/28/19 20:15 05/28/19 20:16 DC 05/28/19 20:16 30 MG Ondansetron HCl (Zofran) 4 mg 1X ONCE 05/28/19 21:30 05/28/19 21:31 05/28/19 21:04 4 MG Allergies Allergies Allergies Coded Allergies Type Severity Reaction Last Updated Verified adhesive Allergy Intermediate 02/24/19 Yes Physical Exam Physical Exam Constitutional: Well developed, well nourished, no acute distress, non-toxic appearance. [] HENT: Normocephalic, atraumatic, bilateral external ears normal, oropharynx moist, no oral exudates, nose normal. [] Eyes: PERRLA, EOMI, conjunctiva normal, no discharge. [] Neck: Normal range of motion, no tenderness, supple, no stridor. [] Cardiovascular: Regular rate and rhythm[] Lungs & Thorax: Bilateral breath sounds clear to auscultation [] Abdomen: Bowel sounds normal, soft, no tenderness. [] Skin: Warm, dry, no erythema, no rash. [] Extremities: No tenderness, no cyanosis, no clubbing, ROM intact. [] Neurologic: Alert and oriented X 3, no focal deficits noted. [] Current Patient Data Vital Signs Vital Signs Date Time Temp Pulse Resp B/P (MAP) Pulse Ox O2 Delivery O2 Flow Rate FiO2 05/28/19 21:04 16 99 05/28/19 20:46 68 134/68 (90) Room Air 05/28/19 18:31 97.3 97.3 Lab Values Laboratory Tests Test 05/28/19 18:47 05/28/19 20:36 White Blood Count 5.7 x10^3/uL (4.0-11.0) Red Blood Count 4.04 x10^6/uL (3.50-5.40) Hemoglobin 12.9 g/dL (12.0-15.5) Hematocrit 37.1 % (36.0-47.0) Mean Corpuscular Volume 92 fL (79-100) Mean Corpuscular Hemoglobin 32 pg (25-35) Mean Corpuscular Hemoglobin Concent 35 g/dL (31-37) Red Cell Distribution Width 13.6 % (11.5-14.5) Platelet Count 177 x10^3/uL (140-400) Neutrophils (%) (Auto) 44 % (31-73) Lymphocytes (%) (Auto) 46 % (24-48) Monocytes (%) (Auto) 7 % (0-9) Eosinophils (%) (Auto) 3 % (0-3) Basophils (%) (Auto) 1 % (0-3) Neutrophils # (Auto) 2.5 x10^3/uL (1.8-7.7) Lymphocytes # (Auto) 2.6 x10^3/uL (1.0-4.8) Monocytes # (Auto) 0.4 x10^3/uL (0.0-1.1) Eosinophils # (Auto) 0.2 x10^3/uL (0.0-0.7) Basophils # (Auto) 0.0 x10^3/uL (0.0-0.2) Sodium Level 140 mmol/L (136-145) Potassium Level 3.7 mmol/L (3.5-5.1) Chloride Level 102 mmol/L (98-107) Carbon Dioxide Level 31 mmol/L (21-32) Anion Gap 7 (6-14) Blood Urea Nitrogen 10 mg/dL (7-20) Creatinine 0.9 mg/dL (0.6-1.0) Estimated GFR (Cockcroft-Gault) 66.8 BUN/Creatinine Ratio 11 (6-20) Glucose Level 141 mg/dL (70-99) H Calcium Level 9.1 mg/dL (8.5-10.1) Magnesium Level 1.9 mg/dL (1.8-2.4) Total Bilirubin 0.9 mg/dL (0.2-1.0) Aspartate Amino Transferase (AST) 34 U/L (15-37) Alanine Aminotransferase (ALT) 49 U/L (14-59) Alkaline Phosphatase 49 U/L (46-116) Troponin I Quantitative < 0.017 ng/mL (0.000-0.055) < 0.017 ng/mL (0.000-0.055) Total Protein 8.3 g/dL (6.4-8.2) H Albumin 4.0 g/dL (3.4-5.0) Albumin/Globulin Ratio 0.9 (1.0-1.7) L Thyroid Stimulating Hormone (TSH) 2.478 uIU/mL (0.358-3.74) Laboratory Tests 05/28/19 18:47 Laboratory Tests 05/28/19 18:47 EKG EKG [] Interpretation Time: EKG demonstrates normal sinus rhythm with rate of 66. Radiology/Procedures Radiology/Procedures [] Course & Med Decision Making Course & Med Decision Making Pertinent Labs and Imaging studies reviewed. (See chart for details) [] Dragon Disclaimer Dragon Disclaimer This electronic medical record was generated, in whole or in part, using a voice recognition dictation system. Departure Departure Impression: Primary Impression: Palpitations Additional Impression: Headache Disposition: 01 HOME, SELF-CARE Condition: STABLE Referrals: BOBBY LOPEZ MD (PCP) Patient Instructions: Headache, FAQs, Palpitations Problem Qualifiers Additional Impression: Headache Headache type: unspecified Headache chronicity pattern: unspecified pattern Intractability: not intractable Qualified Codes: R51 - Headache LAMONT KELSEY Jr. DO May 28, 2019 19:20
[2019-05-28 19:25] LABS: ALBUMIN/GLOBULIN RATIO 0.9 (1.0-1.7); MAGNESIUM 1.9 mg/dL (1.8-2.4); TOTAL BILIRUBIN 0.9 mg/dL (0.2-1.0); TOTAL PROTEIN 8.3 g/dL (6.4-8.2)
[2019-05-28] MEDS: KETOROLAC 30 MG/ML VIAL. IV ONE (20:16)
[2019-05-28] MEDS: ONDANSETRON PF 4 MG/2 ML VIAL. IV ONE (21:03)
[2019-05-28] MEDS: fentaNYL PF VIAL 100 MCG/2 ML VIAL IV ONE (21:04)
[2019-05-28 21:15] VITALS: BP 116/62
--- NOTE | 2019-05-29 00:26 | RAD ---
PORTABLE CHEST 1V INDICATION: Palpitations. COMPARISON STUDY: 04/20/2019. FINDINGS: Lungs: Normal lung volume. No pulmonary mass or consolidation. The tracheobronchial tree and hilar structures are normal. Pleura: No pleural effusion or pneumothorax. Heart and Mediastinum: The cardiomediastinal silhouette is normal. The great vessels of the thorax are normal. Bones and Soft Tissues: The bones and soft tissues are within normal limits. IMPRESSION: No acute cardiopulmonary process. Electronically signed by: River Yi MD (05/29/2019 12:23 AM) [facility]
--- NOTE | 2019-05-29 05:40 | EKG ---
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
== END 2019-05-28 21:15 | disposition home or self-care (01) ==
LOC: ER 18:30
DX: R00.2 Palpitations (principal); R51 Headache; F41.9 Anxiety disorder, unspecified; E11.9 Type 2 diabetes mellitus without complications; Z90.49 Acquired absence of other specified parts of digestive tract; Z98.890 Other specified postprocedural states; Z90.710 Acquired absence of both cervix and uterus; Z88.8 Allergy status to other drugs, medicaments and biological substances
CPT/HCPCS: 36415; 71045; 80053; 83735; 84443; 84484; 85025; 93005; 96374; 96375; 99285; J1885; J2405; J3010

== ENCOUNTER 2019-07-03 11:53 | Emergency (ER) | payer OTHER ==
[~2019-07-03] VITALS: Ht 170.2 cm; Wt 112.0 kg
[~2019-07-03 11:53] MED LIST changes: -GLIM4TAB2 PO; +GLIM4TAB4 PO
[2019-07-03 12:04] VITALS: BP 142/81
--- NOTE | 2019-07-03 12:26 | RAD ---
Examination: FOOT LEFT 3V History: Swelling and pain in lateral aspect of the left foot Comparison/Correlation: None Findings: 3 images of the left foot were obtained. Mild narrowing and subchondral sclerosis of the first metatarsophalangeal joint noted. Minimal spurring at the lateral calcaneocuboid articulation. No acute fracture or bony destructive finding. Soft tissues are unremarkable. Impression: No suspicious process. Electronically signed by: Chidi Spann MD (07/03/2019 12:24 PM) [facility]
--- NOTE | 2019-07-03 12:31 | PHYS DOC ---
Past Medical History Past Medical History: Anxiety, Diabetes-Type II, Other Additional Past Medical Histor: SVT, cataracts Past Surgical History: Cholecystectomy, , Hysterectomy, Other Additional Past Surgical Histo: bilateral carpal tunnel, ablation, 'spine surgery',NECK FUSION Alcohol Use: Rarely Drug Use: None Adult General Chief Complaint Chief Complaint: FOOT INJURY PAIN HPI HPI Patient is a 49 year old female who presents with complaining of left foot injury. Patient states she hit her foot against a curb this morning and complaining of pain without other injuries or focal neuro deficit. Patient rated her pain as a moderate pain. Review of Systems Review of Systems Constitutional: Denies fever or chills [] Eyes: Denies change in visual acuity, redness, or eye pain [] HENT: Denies nasal congestion or sore throat [] Respiratory: Denies cough or shortness of breath [] Cardiovascular: No additional information not addressed in HPI [] GI: Denies abdominal pain, nausea, vomiting, bloody stools or diarrhea [] : Denies dysuria or hematuria [] Musculoskeletal: Denies back pain, reports joint pain [] Integument: Denies rash or skin lesions [] Neurologic: Denies headache, focal weakness or sensory changes [] Endocrine: Denies polyuria or polydipsia [] All other systems were reviewed and found to be within normal limits, except as documented in this note. Allergies Allergies Allergies Coded Allergies Type Severity Reaction Last Updated Verified adhesive Allergy Intermediate 02/24/19 Yes Physical Exam Physical Exam Constitutional: Well developed, well nourished, mild distress, non-toxic appearance. [] HENT: Normocephalic, atraumatic. Eyes: PERRLA, EOMI, conjunctiva normal, no discharge. [] Neck: Normal range of motion, no tenderness, supple, no stridor. [] Cardiovascular:Heart rate regular rhythm, no murmur [] Lungs & Thorax: Bilateral breath sounds clear to auscultation [] Extremities: Left fourth without deformity or edema contusion, no tenderness, no cyanosis, no clubbing, ROM intact, no edema. [] Neurologic: Alert and oriented X 3, no focal deficits noted. [] Psychologic: Affect normal, judgement normal, mood normal. [] Current Patient Data Vital Signs Vital Signs Date Time Temp Pulse Resp B/P (MAP) Pulse Ox O2 Delivery O2 Flow Rate FiO2 07/03/19 12:04 97.4 68 16 142/81 (101) 98 Room Air 97.4 EKG EKG [] Radiology/Procedures Radiology/Procedures [][facility] [address] [place] [address] IMAGING REPORT Signed PATIENT: MITCH XIAO JACCOUNT: [id number] : 1970 LOCATION: ER AGE: 49 SEX: F EXAM STATUS: REG ER ORD. PHYSICIAN: HIGINIO ENCISO MD REASON: injury, lateral swelling and pain lt foot PROCEDURE: FOOT LEFT 3V Examination: FOOT LEFT 3V History: Swelling and pain in lateral aspect of the left foot Comparison/Correlation: None Findings: 3 images of the left foot were obtained. Mild narrowing and subchondral sclerosis of the first metatarsophalangeal joint noted. Minimal spurring at the lateral calcaneocuboid articulation. No acute fracture or bony destructive finding. Soft tissues are unremarkable. Impression: No suspicious process. Electronically signed by: Chidi Glover MD (07/03/2019 12:24 PM) [facility] DICTATED and SIGNED BY: CHIDI GLOVER MD DATE: 07/03/191223 Course & Med Decision Making Course & Med Decision Making Pertinent Imaging studies reviewed. (See chart for details) discharge: I've spoken with the patient and/or caregivers. I've explained the patient's condition, diagnosis and treatment plan based on information available to me at this time. I've answered the patient's and/or caregivers questions and addressed any concerns. The patient and/or caregivers have a good understanding the patient's diagnosis, condition and treatment plan as can be expected at this point. Vital signs have been stabilized. The patient's condition is stable for discharge from the emergency department. The patient will pursue further outpatient evaluation with her primary care provider or other designated consulting physician as outlined in the discharge instructions. Patient and/or caregivers are agreeable to this plan of care and follow-up instructions have been explained in detail. The patient and/or caregivers have received these instructions in written format and expressed understanding of these discharge instructions. The patient and her caregivers are aware that if any significant change in condition or worsening of symptoms should prompt him to immediately return to this of the closest emergency department. If an emergent department is not readily available I would encourage him to call 911. Sabrina Disclaimer Sabrina Disclaimer This electronic medical record was generated, in whole or in part, using a voice recognition dictation system. Departure Departure Impression: Primary Impression: Injury of left foot Disposition: HOME, SELF-CARE Condition: STABLE Referrals: BOBBY LOPEZ MD (PCP) Patient Instructions: Foot Contusion Additional Instructions: Apply ice on the affected area Follow-up with your primary care physician in 3-5 days Return to ER if not getting better Scripts Hydrocodone/Apap 5-325 (NORCO 5-325 TABLET) 1 Each Tablet 1 TAB PO PRN Q6HRS PRN for PAIN, #10 TAB 0 Refills Prov: HIGINIO ENCISO MD 07/03/19 Ibuprofen (IBUPROFEN) 800 Mg Tablet 800 MG PO PRN Q8HRS PRN for INFLAMMATION, #20 TAB Prov: HIGINIO ENCISO MD 07/03/19 Problem Qualifiers Primary Impression: Injury of left foot Encounter type: initial encounter Qualified Codes: S99.922A - Unspecified injury of left foot, initial encounter HIGINIO ENCISO MD Jul 03, 2019 12:31
[2019-07-03] MEDS ORDERED: HYDR-3164 PO (12:39)
[2019-07-03] MEDS ORDERED: IBUP-1060 PO (12:39)
== END 2019-07-03 12:48 | disposition home or self-care (01) ==
LOC: ER 11:53
DX: S99.922A Unspecified injury of left foot, initial encounter (principal); E11.9 Type 2 diabetes mellitus without complications; Z88.8 Allergy status to other drugs, medicaments and biological substances; W22.8XXA Striking against or struck by other objects, initial encounter; Y93.89 Activity, other specified; Y92.89 Other specified places as the place of occurrence of the external cause; Y99.8 Other external cause status
CPT/HCPCS: 73630; 99284

== ENCOUNTER → 2019-08-11 | Outpatient (CLI) | payer OTHER ==
[~2019-08-11] MED LIST changes: -ALBU2.5V8 IH; +HYDR-3164 PO; +IBUP-1060 PO; +PROVENTIL HFA6.7 GM IH
--- NOTE | 2019-08-12 13:29 | SLEEP ---
DATE OF STUDY: 08/11/2019 HOME SLEEP STUDY REFERRING PHYSICIAN: Beatriz Gonzalez MD The patient is 49 years old who weighs 265 pounds with a BMI of 41.5. The patient's [place] score was 1. The patient underwent home sleep study performed by [facility]. Total recording time was 407 minutes. During the night of the study, the patient had no central apneas, 6 obstructive apneas and 32 mixed apneas and 41 hypopneas. The patient's apnea hypopnea index was 11.6 per hour. The patient's oximetry study revealed an average oxygen saturation of 92%; the lowest of 78%. 14.7 minutes were spent in oxygen saturation less than 90%. Mean heart rate 68 beats per minute. IMPRESSION: 1. Mild sleep apnea-hypopnea syndrome at an apnea-hypopnea index of 11.6 per hour. 2. Nocturnal hypoxia secondary to obstructive sleep apnea. RECOMMENDATIONS: 1. The patient has mild sleep apnea. I would recommend weight loss as the initial form of treatment. 2. If the patient remains clinically symptomatic or has comorbid conditions, then the patient's sleep apnea can be treated with either CPAP versus oral appliance. 3. Avoid ENVIRONMENTAL HEALTH TECHNOLOGIST depressants. 4. Cautioned regarding driving until symptoms of sleep apnea resolve with the above recommendations. PAGE HOLLAND MD DR: JOSE/candelario JOB#: [id number] / [id number] [facility] BEATRIZ GONZALEZ MD
== END | disposition home or self-care (01) ==
LOC: RT 09:16
PROVIDERS: ATTEND Internal Medicine Cardiovascular Disease
DX: G47.33 Obstructive sleep apnea (adult) (pediatric) (principal); G47.34 Idiopathic sleep related nonobstructive alveolar hypoventilation
CPT/HCPCS: G0399

== ENCOUNTER → 2019-08-13 | Outpatient (CLI) | payer OTHER ==
--- NOTE | 2019-08-13 13:05 | CARD ---
MR#: [id number] Date of Study: 08/13/2019 Ordering Physician: BEATRIZ GONZALEZ, Referring Physician: BEATRIZ GONZALEZ, Tech: Yolande Conley APPROVED REPORT EXAM: Two-dimensional and M-mode echocardiogram with Doppler and color Doppler. Other Information Quality : GoodHR: 61bpm INDICATION Superventricular Tachycardia RISK FACTORS Hyperlipidemia Diabetes 2D DIMENSIONS RVDd3.2 (2.9-3.5cm)Left Atrium(2D)3.7 (1.6-4.0cm) IVSd0.9 (0.7-1.1cm)Aortic Root(2D)3.1 (2.0-3.7cm) LVDd4.7 (3.9-5.9cm)LVOT Diameter2.0 (1.8-2.4cm) PWd0.9 (0.7-1.1cm)LVDs3.2 (2.5-4.0cm) FS (%) 32.2 %SV62.8 ml LVEF(%)60.3 (>50%) Aortic Valve AoV Peak Matt.152.6cm/sAoV VTI36.2cm AO Peak GR.9.3mmHgLVOT Peak Matt.139.3cm/s AO Mean GR.4mmHgAVA (VMAX)2.78cm2 Mitral Valve MV E Kbiuqnva777.7cm/sMV E Peak Gr.3mmHg MV DECEL [id number] A Hdhslucj74.0cm/s MV E Mean Gr.1mmHgE/A Ratio1.9 Pulmonary Valve PV Peak Xidukkdi864.8cm/s Tricuspid Valve TR P. Oovklvoz627wk/sRAP BYPNWZHN4vlNl TR Peak Gr.43kvKoPAJU32unCd Pulmonary Vein S1 Lnholkzr09.6cm/sD2 Wtipbngy79.4cm/s PVa hebvtykl775aizs LEFT VENTRICLE The left ventricle is normal size. There is normal left ventricular wall thickness. The left ventricu lar systolic function is normal. The Ejection Fraction is 55-60%. There is normal LV segmental wall m otion. The left ventricular diastolic function and filling is normal for age. RIGHT VENTRICLE The right ventricle is normal size. There is normal right ventricular wall thickness. The right ventr icular systolic function is normal. ATRIA The left atrium size is normal. The right atrium size is normal. The interatrial septum is intact wit h no evidence for an atrial septal defect or patent foramen ovale as noted on 2-D or Doppler imaging. AORTIC VALVE The aortic valve is normal in structure and function. Doppler and Color Flow revealed no significant aortic regurgitation. There is no significant aortic valvular stenosis. MITRAL VALVE The mitral valve is normal in structure and function. There is no evidence of mitral valve prolapse. There is no mitral valve stenosis. Doppler and Color-flow revealed trace to mild mitral regurgitation . TRICUSPID VALVE The tricuspid valve is normal in structure and function. Doppler and Color Flow revealed trace tricus pid regurgitation. There is no tricuspid valve stenosis. PULMONIC VALVE The pulmonic valve is not well visualized. Doppler and Color Flow revealed no pulmonic valvular regur gitation. GREAT VESSELS The aortic root is normal in size. The IVC is normal in size and collapses >50% with inspiration. PERICARDIAL EFFUSION There is no evidence of significant pericardial effusion. Critical Notification Critical Value: No <Conclusion> The left ventricular systolic function is normal. The Ejection Fraction is 55-60%. There is normal LV segmental wall motion. Trace to mild mitral regurgitation. Trace tricuspid regurgitation. There is no evidence of significant pericardial effusion. Signed by : Macario Siddiqi, Electronically Approved : 08/13/2019 13:04:56
== END | disposition home or self-care (01) ==
LOC: ECHO 10:27
PROVIDERS: ATTEND Internal Medicine Cardiovascular Disease
DX: I34.0 Nonrheumatic mitral (valve) insufficiency (principal); E78.5 Hyperlipidemia, unspecified; E11.9 Type 2 diabetes mellitus without complications
CPT/HCPCS: 93306

== ENCOUNTER → 2019-08-26 | Outpatient (CLI) | payer OTHER ==
[2019-08-26 10:13] LABS: ALBUMIN 3.7 g/dL (3.4-5.0); ALBUMIN/GLOBULIN RATIO 0.8 (1.0-1.7); CREATININE 0.9 mg/dL (0.6-1.0); GFR 66.8; POTASSIUM 4.6 mmol/L (3.5-5.1); TOTAL BILIRUBIN 0.5 mg/dL (0.2-1.0); TOTAL PROTEIN 8.4 g/dL (6.4-8.2)
[2019-08-26 10:14] LABS: CHOLESTEROL/HDL RATIO 4.7
--- NOTE | 2019-08-26 20:15 | RAD ---
CHEST PA LATERAL History: Cough Comparison: 05/28/2019 Portable Chest X-ray Exam. Findings: Frontal and lateral views of the chest were obtained. Postoperative cervical spine fusion noted. The cardiomediastinal silhouette is normal. Pulmonary vasculature is normal. The lungs are clear. No pleural effusion or pneumothorax is seen. There is no acute bone abnormality. IMPRESSION: No acute cardiopulmonary process. Electronically signed by: Chidi Spann MD (08/26/2019 8:12 PM) [facility]
--- NOTE | 2019-08-26 20:16 | RAD ---
Examination: ANKLE LEFT 3V, FOOT LEFT 3V History: Pain Comparison/Correlation: None Findings: 3 images of the left ankle and 3 images of the left foot were obtained. Ankle joint mortise is unremarkable. Small calcaneal spur is noted. No fracture or bone destruction. Soft tissues are unremarkable. Joint spaces are adequate. Impression: No suspicious process. No significant degenerative change for the patient's age. Electronically signed by: Chidi Spann MD (08/26/2019 8:13 PM) [facility]
== END ==
LOC: LAB 09:15
PROVIDERS: ATTEND Family Medicine
DX: M77.32 Calcaneal spur, left foot (principal); E11.319 Type 2 diabetes mellitus with unspecified diabetic retinopathy without macular edema; R05 Cough; M19.90 Unspecified osteoarthritis, unspecified site; Z87.891 Personal history of nicotine dependence; Z90.49 Acquired absence of other specified parts of digestive tract; Z90.710 Acquired absence of both cervix and uterus; Z90.722 Acquired absence of ovaries, bilateral; Z90.89 Acquired absence of other organs; Z98.1 Arthrodesis status
CPT/HCPCS: 36415; 71046; 73610; 73630; 80053; 80061; 82043

== ENCOUNTER → 2019-09-01 | Outpatient (CLI) | payer OTHER ==
[2019-09-01] MEDS: ZOLPIDEM 5 MG TABLET. PO ONE (23:08)
--- NOTE | 2019-09-02 09:54 | SLEEP ---
DATE OF STUDY: 09/01/2019 SLEEP STUDY ATTENDING PHYSICIAN: Jania Abebe MD REFERRING PHYSICIAN: Beatriz Rose MD The patient is 49 years old who weighs 243 pounds with a BMI of 38. The patient had a home sleep study and was found to have mild ALANIS at an AHI of 11.6 per hour. The patient was referred back for CPAP titration study. During the night study, the patient spent 412 minutes in bed and slept for 280 minutes with a low sleep efficiency of 68%. Sleep latency was 95 minutes with a REM latency of 259 minutes. Sleep architecture showed normal stage 1 and stage 2 sleep, normal slow wave and normal REM sleep. EKG monitoring revealed normal sinus rhythm. Average heart rate 72 beats per minute, no arrhythmias observed. PLMs were seen at index of 23 per hour and 7 per hour caused EEG arousals. The patient was started on CPAP at a pressure of 5 cm water and titrated up to 9 cm water. At the final pressure, the patient slept for 51 minutes including supine and REM sleep. The patient's AHI was reduced to 4 per hour due to mostly few central apneas and oxygen saturation remained above 91%. IMPRESSION: 1. Sleep apnea diagnosed by previous sleep study. 2. Lmys-sa-mfauohpw periodic limb movements. RECOMMENDATIONS: 1. CPAP at 9 cm water completely eliminated the patient's sleep apnea and should be used on a nightly basis. 2. Follow up in 4-6 weeks to assess compliance with CPAP and to document clinical improvement. 3. Weight loss is strongly advised. 4. Avoid OPERATIONS ASSOCIATE depressants. 5. Cautioned regarding driving until symptoms of sleep apnea resolve with the use of CPAP. PAGE HOLLAND MD DR: JOSE/canedlario JOB#: [id number] / [id number] BEATRIZ Muro MD, WHITNEY MD
== END | disposition home or self-care (01) ==
LOC: RT 17:49
PROVIDERS: ATTEND Internal Medicine Cardiovascular Disease
DX: G47.33 Obstructive sleep apnea (adult) (pediatric) (principal); E11.9 Type 2 diabetes mellitus without complications; E78.5 Hyperlipidemia, unspecified; M19.90 Unspecified osteoarthritis, unspecified site; Z87.891 Personal history of nicotine dependence; Z90.49 Acquired absence of other specified parts of digestive tract; Z90.710 Acquired absence of both cervix and uterus; Z90.89 Acquired absence of other organs
CPT/HCPCS: 95811

== ENCOUNTER → 2019-11-11 | Outpatient (CLI) | payer OTHER ==
[~2019-11-11] MED LIST changes: -GLIM4TAB4 PO; +GLIM4TAB8 PO
--- NOTE | 2019-11-12 08:19 | RAD ---
History: Routine Screening. Technique: Bilateral digital mammographic routine views were obtained with 2-D and 3-D technique including use of CAD - computer aided detection. Comparison: 11/06/2018. Findings: Breast Tissue Density A : The breast tissue is predominately fatty replaced. There are no suspicious masses, microcalcifications or areas of architectural distortion. Impression: Negative mammogram. BI-RADS Category 1: Negative. Normal interval followup. . A mammogram does not have 100% sensitivity and therefore a negative imaging study should not delay further work up of a suspicious abnormality. The patient will receive a letter with the results in the mail. Patient information is entered into the reminder system with a target due date for the next screening mammogram. The patient will receive a reminder. "Our facility is accredited by the [employer] Mammography Program." BI-RADS 1 -- negative findings (within normal)
== END | disposition home or self-care (01) ==
LOC: MAMMO 14:32
PROVIDERS: ATTEND Family Medicine
DX: Z12.31 Encounter for screening mammogram for malignant neoplasm of breast (principal)
CPT/HCPCS: 77063; 77067

== ENCOUNTER 2020-01-07 21:57 | Emergency (ER) | payer OTHER ==
[~2020-01-07] VITALS: Ht 170.2 cm; Wt 108.0 kg
[2020-01-07 22:21] LABS: BASO # 0.1 x10^3/uL (0.0-0.2); BASO % 1 % (0-3); EOS # 0.2 x10^3/uL (0.0-0.7); EOS % 3 % (0-3); HEMATOCRIT 38.1 % (36.0-47.0); HEMOGLOBIN 12.9 g/dL (12.0-15.5); LYMPH # 2.9 x10^3/uL (1.0-4.8); LYMPH % 45 % (24-48); MEAN CORPUSCULAR HEMOGLOBIN 30 pg (25-35); MEAN CORPUSCULAR HGB CONC 34 g/dL (31-37); MEAN CORPUSCULAR VOLUME 88 fL (79-100); MONO # 0.4 x10^3/uL (0.0-1.1); MONO % 7 % (0-9); NEUT # 2.8 x10^3/uL (1.8-7.7); NEUT % 44 % (31-73); PLATELET COUNT 204 x10^3/uL (140-400); RED BLOOD COUNT 4.34 x10^6/uL (3.50-5.40); RED CELL DISTRIBUTION WIDTH 13.7 % (11.5-14.5); WHITE BLOOD COUNT 6.4 x10^3/uL (4.0-11.0)
[2020-01-07 22:29] LABS: CALCIUM 8.9 mg/dL (8.5-10.1); GFR 59.2; POTASSIUM 3.8 mmol/L (3.5-5.1)
[2020-01-07] MEDS ORDERED: IV NORMAL SALINE 1000ML BAG 1,000 ML IV SCH (22:30)
[2020-01-07] MEDS ORDERED: KETOROLAC 30 MG/ML VIAL. IVP ONE (22:30)
[2020-01-07] MEDS ORDERED: MECLIZINE HCL 12.5 MG TABLET. PO ONE (22:30)
[2020-01-07] MEDS ORDERED: ONDANSETRON PF 4 MG/2 ML VIAL. IVP ONE (22:30)
[2020-01-07] MEDS ORDERED: SCOPOLAMINE 1.5MG PATCH. TD ONE (22:30)
[2020-01-07 22:35] LABS: ALBUMIN 3.9 g/dL (3.4-5.0); ALBUMIN/GLOBULIN RATIO 0.9 (1.0-1.7); TOTAL BILIRUBIN 1.1 mg/dL (0.2-1.0); TOTAL PROTEIN 8.1 g/dL (6.4-8.2)
--- NOTE | 2020-01-07 23:30 | RAD ---
CT head without contrast PQRS statement: CT scans at this facility use dose reduction including either automated exposure control, iterative reconstructions, and /or weight based radiation dosing via mA and kV modification when appropriate to reduce radiation dose to as low as reasonably achievable. HISTORY: Dizziness and headache. FINDINGS: No intracranial hemorrhage, mass, hydrocephalus, extra-axial fluid collections or infarction. No acute ischemic change. Orbits, mastoids and bones are unremarkable. IMPRESSION: Normal exam. Electronically signed by: Ramu Johnson MD (01/07/2020 11:27 PM) [id number]
[2020-01-07] MEDS ORDERED: ONDA4TAB12 PO (23:41)
[2020-01-07] MEDS ORDERED: SCOP1PAT11 TP (23:41)
[2020-01-07] MEDS ORDERED: MECL-75 PO (23:41)
--- NOTE | 2020-01-07 23:42 | PHYS DOC ---
Past Medical History Past Medical History: Anxiety, Diabetes-Type II, Other Additional Past Medical Histor: SVT, cataracts Past Surgical History: Cholecystectomy, , Hysterectomy, Other Additional Past Surgical Histo: bilateral carpal tunnel, ablation, 'spine surgery',NECK FUSION Smoking Status: Former Smoker Alcohol Use: Rarely Drug Use: None General Adult EDM: Chief Complaint: DIZZY/LIGHT HEADED HPI: HPI: Patient is a 49 year old female who presents with complaint of acute onset of dizziness at home. She also complains of headache that she rates at a 7 out of 10. She describes the dizziness as vertiginous with feeling like the room spi nning around. She states that she feels off balance and has had nausea but no vomiting. Patient states that symptoms began a little over 2 hours ago. She denies any lateralizing weakness.[] Review of Systems: Review of Systems: Constitutional: Denies fever or chills. [] Eyes: Denies change in visual acuity. [] Respiratory: Denies cough or shortness of breath. [] Cardiovascular: Denies chest pain or edema. [] Integument: Denies rash. [] Neurologic: Complains of headache and dizziness without focal weakness or sensory changes. [] A full 10 point review of systems has been reviewed and is otherwise negative. Heart Score: Risk Factors: Risk Factors: DM, Current or recent (<one month) smoker, HTN, HLP, family history of CAD, obesity. Risk Scores: Score 0 - 3: 2.5% MACE over next 6 weeks - Discharge Home Score 4 - 6: 20.3% MACE over next 6 weeks - Admit for Clinical Observation Score 7 - 10: 72.7% MACE over next 6 weeks - Early Invasive Strategies Current Medications: Current Medications Medications (Trade) Dose Ordered Sig/[facility] Start Time Stop Time Status Last Admin Dose Admin Fentanyl Citrate (Fentanyl 2ml Vial) 75 mcg 1X ONCE 01/07/20 23:45 01/07/20 23:46 01/07/20 23:27 75 MCG Ketorolac Tromethamine (Toradol 30mg Vial) 30 mg 1X ONCE 01/07/20 22:30 01/07/20 22:31 DC 01/07/20 22:35 30 MG Lorazepam (Ativan Inj) 0.5 mg 1X ONCE 01/07/20 22:30 01/07/20 22:31 DC 01/07/20 22:34 0.5 MG Meclizine HCl (Antivert) 25 mg 1X ONCE 01/07/20 22:30 01/07/20 22:31 DC 01/07/20 22:35 25 MG Ondansetron HCl (Zofran) 4 mg 1X ONCE 01/07/20 22:30 01/07/20 22:31 DC 01/07/20 22:35 4 MG Scopolamine (Transderm-Scop) 1 patch 1X ONCE 01/07/20 22:30 01/07/20 22:31 DC 01/07/20 22:25 1 PATCH Sodium Chloride 1,000 ml @ 1,000 mls/hr Q1H 01/07/20 22:30 01/07/20 23:29 DC 01/07/20 22:26 1,000 MLS/HR Allergies: Allergies: Allergies Coded Allergies Type Severity Reaction Last Updated Verified adhesive Allergy Intermediate 02/24/19 Yes Physical Exam: PE: Constitutional: Well developed, well nourished, no acute distress, non-toxic appearance. [] HENT: Normocephalic, atraumatic, bilateral external ears normal, oropharynx moist, no oral exudates, nose normal. [] Eyes: PERRLA, EOMI, conjunctiva normal, no discharge. [] Neck: Normal range of motion, no tenderness, supple, no stridor. [] Cardiovascular: Regular rate and rhythm[] Lungs & Thorax: Bilateral breath sounds clear to auscultation [] Abdomen: Bowel sounds normal, soft, no tenderness, no masses, no pulsatile masses. [] Skin: Warm, dry, no erythema, no rash. [] Extremities: No tenderness, no cyanosis, no clubbing, ROM intact. [] Neurologic: Alert and oriented X 3, normal motor function, normal sensory function, no focal deficits noted. [] Current Patient Data: Labs: Laboratory Tests Test 01/07/20 22:13 White Blood Count 6.4 x10^3/uL (4.0-11.0) Red Blood Count 4.34 x10^6/uL (3.50-5.40) Hemoglobin 12.9 g/dL (12.0-15.5) Hematocrit 38.1 % (36.0-47.0) Mean Corpuscular Volume 88 fL (79-100) Mean Corpuscular Hemoglobin 30 pg (25-35) Mean Corpuscular Hemoglobin Concent 34 g/dL (31-37) Red Cell Distribution Width 13.7 % (11.5-14.5) Platelet Count 204 x10^3/uL (140-400) Neutrophils (%) (Auto) 44 % (31-73) Lymphocytes (%) (Auto) 45 % (24-48) Monocytes (%) (Auto) 7 % (0-9) Eosinophils (%) (Auto) 3 % (0-3) Basophils (%) (Auto) 1 % (0-3) Neutrophils # (Auto) 2.8 x10^3/uL (1.8-7.7) Lymphocytes # (Auto) 2.9 x10^3/uL (1.0-4.8) Monocytes # (Auto) 0.4 x10^3/uL (0.0-1.1) Eosinophils # (Auto) 0.2 x10^3/uL (0.0-0.7) Basophils # (Auto) 0.1 x10^3/uL (0.0-0.2) Sodium Level 136 mmol/L (136-145) Potassium Level 3.8 mmol/L (3.5-5.1) Chloride Level 97 mmol/L (98-107) L Carbon Dioxide Level 31 mmol/L (21-32) Anion Gap 8 (6-14) Blood Urea Nitrogen 11 mg/dL (7-20) Creatinine 1.0 mg/dL (0.6-1.0) Estimated GFR (Cockcroft-Gault) 59.2 BUN/Creatinine Ratio 11 (6-20) Glucose Level 211 mg/dL (70-99) H Calcium Level 8.9 mg/dL (8.5-10.1) Total Bilirubin 1.1 mg/dL (0.2-1.0) H Aspartate Amino Transferase (AST) 38 U/L (15-37) H Alanine Aminotransferase (ALT) 44 U/L (14-59) Alkaline Phosphatase 59 U/L (46-116) Total Protein 8.1 g/dL (6.4-8.2) Albumin 3.9 g/dL (3.4-5.0) Albumin/Globulin Ratio 0.9 (1.0-1.7) L Laboratory Tests 01/07/20 22:13 Laboratory Tests 01/07/20 22:13 Vital Signs: Vital Signs Date Time Temp Pulse Resp B/P (MAP) Pulse Ox O2 Delivery O2 Flow Rate FiO2 01/07/20 23:29 63 18 99 01/07/20 22:11 98.0 133/73 (93) Room Air 98.0 EKG: EKG: [] Radiology/Procedures: Radiology/Procedures: [] Impression: PROCEDURE: CT HEAD WO CONTRAST CT head without contrast PQRS statement: CT scans at this facility use dose reduction including either automated exposure control, iterative reconstructions, and /or weight based radiation dosing via mA and kV modification when appropriate to reduce radiation dose to as low as reasonably achievable. HISTORY: Dizziness and headache. FINDINGS: No intracranial hemorrhage, mass, hydrocephalus, extra-axial fluid collections or infarction. No acute ischemic change. Orbits, mastoids and bones are unremarkable. IMPRESSION: Normal exam. Electronically signed by: Ramu Johnson MD (01/07/2020 11:27 PM) [id number] Course & Med Decision Making: Course & Med Decision Making Pertinent Labs and Imaging studies reviewed. (See chart for details) [] Dragon Disclaimer: Dragon Disclaimer: This electronic medical record was generated, in whole or in part, using a voice recognition dictation system. Departure Departure Impression: Primary Impression: Benign positional vertigo Qualified Codes: H81.10 - Benign paroxysmal vertigo, unspecified ear Additional Impression: Headache Qualified Codes: R51 - Headache Disposition: 01 HOME, SELF-CARE Condition: STABLE Referrals: BOBBY LOPEZ MD (PCP) Patient Instructions: Benign Positional Vertigo, General Headache Without Cause Scripts Scopolamine (TRANSDERM-SCOP) 1 Each Patch.td72 1 PATCH TP Q3DAYS PRN for DIZZINESS, #4 PATCH Prov: LAMONT KELSEY Jr. DO 01/07/20 Ondansetron (ONDANSETRON ODT) 4 Mg Tab.rapdis 1 TAB PO PRN Q6-8HRS PRN for NAUSEA, #15 TAB Prov: LAMONT KELSEY Jr. DO 01/07/20 Meclizine Hcl (MECLIZINE HCL) 25 Mg Tablet 25 MG PO PRN TID PRN for DIZZINESS, #30 dizziness Prov: LAMONT KELSEY Jr. DO 01/07/20 LAMONT KELSEY Jr. DO Jan 07, 2020 23:42
[2020-01-07 23:45] VITALS: BP 111/58
[2020-01-07] MEDS ORDERED: fentaNYL PF VIAL 100 MCG/2 ML VIAL IVP ONE (23:45)
--- NOTE | 2020-01-08 07:29 | EKG ---
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
== END 2020-01-07 23:49 | disposition home or self-care (01) ==
LOC: ER 21:57
DX: H81.10 Benign paroxysmal vertigo, unspecified ear (principal); R51 Headache; R42 Dizziness and giddiness; R11.0 Nausea; F41.8 Other specified anxiety disorders; E11.9 Type 2 diabetes mellitus without complications; Z90.49 Acquired absence of other specified parts of digestive tract; Z90.710 Acquired absence of both cervix and uterus; Z98.890 Other specified postprocedural states; Z87.891 Personal history of nicotine dependence; Z88.4 Allergy status to anesthetic agent
CPT/HCPCS: 36415; 70450; 80053; 85025; 93005; 96361; 96374; 96375; 99285; J1885; J2060; J2405; J3010; J7030; J8597

== ENCOUNTER → 2020-02-06 | Outpatient (CLI) | payer OTHER ==
[2020-01-07 23:45] VITALS: BP 111/58
[~2020-02-06] MED LIST changes: +MECL-75 PO; +ONDA4TAB12 PO; +SCOP1PAT11 TP
[2020-02-06 08:56] LABS: ALBUMIN 3.4 g/dL (3.4-5.0); ALBUMIN/GLOBULIN RATIO 0.9 (1.0-1.7); CALCIUM 8.7 mg/dL (8.5-10.1); GFR 59.2; POTASSIUM 3.9 mmol/L (3.5-5.1); TOTAL PROTEIN 7.2 g/dL (6.4-8.2)
[2020-02-06 09:04] LABS: BASO % 1 % (0-3); EOS # 0.1 x10^3/uL (0.0-0.7); EOS % 3 % (0-3); HEMATOCRIT 36.5 % (36.0-47.0); HEMOGLOBIN 12.2 g/dL (12.0-15.5); LYMPH # 1.9 x10^3/uL (1.0-4.8); LYMPH % 39 % (24-48); MEAN CORPUSCULAR HEMOGLOBIN 30 pg (25-35); MEAN CORPUSCULAR HGB CONC 33 g/dL (31-37); MEAN CORPUSCULAR VOLUME 88 fL (79-100); MONO # 0.3 x10^3/uL (0.0-1.1); MONO % 6 % (0-9); NEUT # 2.5 x10^3/uL (1.8-7.7); NEUT % 52 % (31-73); PLATELET COUNT 193 x10^3/uL (140-400); RED BLOOD COUNT 4.14 x10^6/uL (3.50-5.40); RED CELL DISTRIBUTION WIDTH 14.2 % (11.5-14.5); WHITE BLOOD COUNT 4.8 x10^3/uL (4.0-11.0)
[2020-02-06 09:14] LABS: CHOLESTEROL/HDL RATIO 2.5
== END | disposition home or self-care (01) ==
LOC: LAB 08:04
PROVIDERS: ATTEND Family Medicine
DX: R20.2 Paresthesia of skin (principal); H53.9 Unspecified visual disturbance; E11.69 Type 2 diabetes mellitus with other specified complication; R42 Dizziness and giddiness; R29.898 Other symptoms and signs involving the musculoskeletal system
CPT/HCPCS: 36415; 80053; 80061; 82607; 82746; 84443; 85025

== ENCOUNTER → 2020-02-26 | Outpatient (CLI) | payer OTHER ==
[~2020-02-26] MED LIST changes: +ESTR-113 PO; -ESTR1TAB15 PO; +GADOTERATE 5 MMOL/10ML VIAL. IVP ONE; +GADOTERATE 7.5 MMOL/15ML VIAL. IVP ONE
--- NOTE | 2020-02-26 10:08 | RAD ---
MRI Brain with and without contrast History:Left leg weakness and vision changes Technique: Multiplanar, multi sequential pre and postcontrast MR imaging was performed of the brain. Comparison: None Findings: There is no evidence of recent infarct or cytotoxic edema. The ventricles, sulci, and cisterns are within normal limits in size and configuration. There is no significant midline shift, intraaxial mass effect, or focal abnormal extra-axial fluid collection. There is a small old right cerebellar lacunar infarct. Otherwise there is no significant signal abnormality of the brain parenchyma. There is no nodular parenchymal or leptomeningeal enhancement. There is preservation of the major intracranial flow-voids at the skull base. The cerebellar tonsils are normal in location. There is no significant abnormality of the pineal gland. There is a convex margin of the pituitary gland greatest centrally although pituitary gland not considered significantly enlarged measures about 0.7 cm cc. Focus of somewhat more rounded appearing density measures about 0.9 cm transverse by 0.5 cm AP. There is homogeneous enhancement. There is patchy minimal ethmoid air cell mucosal thickening, very minimal maxillary sinus mucosal thickening. There is minimal thickening of the bilateral mastoid air cells.There is preserved marrow signal of the clivus. There has been lens surgery bilaterally. Impression: 1. There is small old right cerebellar lacunar infarct. Otherwise there is no significant intracranial abnormality. 2. While not considered significantly enlarged, there is convex margin of the pituitary gland greater centrally. Hyperplasia or underlying adenoma are not excluded. Correlation with laboratory findings may be beneficial. Electronically signed by: River Almanza MD (02/26/2020 10:05 AM) [id number]
== END ==
LOC: MRI 09:26
PROVIDERS: ATTEND Family Medicine
DX: I63.81 Other cerebral infarction due to occlusion or stenosis of small artery (principal); H53.9 Unspecified visual disturbance; R20.2 Paresthesia of skin
CPT/HCPCS: 70553; A9575

== ENCOUNTER 2020-04-05 20:27 | Emergency (ER) | payer OTHER ==
[~2020-04-05] VITALS: Ht 167.6 cm; Wt 112.2 kg
[~2020-04-05 20:27] MED LIST changes: -GADOTERATE 5 MMOL/10ML VIAL. IVP ONE; -GADOTERATE 7.5 MMOL/15ML VIAL. IVP ONE
--- NOTE | 2020-04-05 20:57 | PHYS DOC ---
Past Medical History Past Medical History: Anxiety, Diabetes-Type II, Other Additional Past Medical Histor: SVT, cataracts Past Surgical History: Cholecystectomy, , Hysterectomy, Other Additional Past Surgical Histo: bilateral carpal tunnel, ablation, 'spine surgery',NECK FUSION Smoking Status: Former Smoker Alcohol Use: Rarely Drug Use: None General Adult EDM: Chief Complaint: Palpitations HPI: HPI: Patient is a 50 year old female that has had a 1 day history of palpitations. Patient feels her heart is racing fast and is very transient in nature. Has also had multiple episodes of off-balance dizzy spells today. These seem to be associated with the palpitations but not always. Patient not feel very dizzy currently. Patient denies any pain. No chills, cough, no fever no vomiting or diarrhea. Patient has a history of SVT and an MRI in the past revealed a cerebellar stroke Review of Systems: Review of Systems: Constitutional: Denies fever or chills. [] Eyes: Denies change in visual acuity. [] HENT: Denies nasal congestion or sore throat. [] Respiratory: Denies cough or shortness of breath. [] Cardiovascular: Denies chest pain or edema. Complains of palpitations GI: Denies abdominal pain, nausea, vomiting, bloody stools or diarrhea. [] : Denies dysuria. [] Musculoskeletal: Denies back pain or joint pain. [] Integument: Denies rash. [] Neurologic: Complains of dizziness mild headache. No motor or sensory deficit. Endocrine: Denies polyuria or polydipsia. [] Lymphatic: Denies swollen glands. [] Psychiatric: Denies depression or anxiety. [] Heart Score: HEART Score for Chest Pain: HEART Score for Chest Pain Response (Comments) Value History Slighlty/Non-Suspicious 0 ECG Normal 0 Age >45 - < 65 1 Risk Factors 1 or 2 Risk Factors 1 Total 2 Risk Factors: Risk Factors: DM, Current or recent (<one month) smoker, HTN, HLP, family history of CAD, obesity. Risk Scores: Score 0 - 3: 2.5% MACE over next 6 weeks - Discharge Home Score 4 - 6: 20.3% MACE over next 6 weeks - Admit for Clinical Observation Score 7 - 10: 72.7% MACE over next 6 weeks - Early Invasive Strategies Allergies: Allergies: Allergies Coded Allergies Type Severity Reaction Last Updated Verified adhesive Allergy Intermediate 02/24/19 Yes Physical Exam: PE: Constitutional: Well developed, well nourished, no acute distress, non-toxic appearance. [] HENT: Normocephalic, atraumatic, bilateral external ears normal, nose normal. [] Eyes: PERRLA, EOMI, conjunctiva normal, no discharge. [] Neck: Normal range of motion, no tenderness, supple, no stridor. [] Cardiovascular:Heart rate regular rhythm, peripheral pulses intact Lungs & Thorax: Bilateral breath sounds clear to auscultation [] Abdomen: Bowel sounds normal, soft, no tenderness, no masses, no pulsatile masses. [] Skin: Warm, dry, no erythema, no rash. [] Back: No tenderness, no CVA tenderness. [] Extremities: No tenderness, no cyanosis, no clubbing, ROM intact, no edema. [] Neurologic: Alert and oriented X 3, normal motor function, normal sensory function, no focal deficits noted. [] Cranial nerves II through XII intact. Cerebellar exam normal Psychologic: Affect normal, judgement normal, mood normal. [] EKG: EKG: [] EKG interpreted by me normal sinus rhythm with rate of 67 normal axis normal intervals normal ST segments Radiology/Procedures: Radiology/Procedures: [][facility] [address] [place], [place] [id number] IMAGING REPORT Signed PATIENT: MITCH XIAO JACCOUNT: [id number] : 1970 LOCATION: ER AGE: 50 SEX: F EXAM STATUS: REG ER ORD. PHYSICIAN: HARVEY KESSLER MD REASON: palpitations PROCEDURE: CHEST PA & LATERAL CHEST PA LATERAL Technique: PA and lateral views of the chest were obtained. Clinical History: Reason: palpitations / Comparison: None. Findings: The heart and pulmonary vasculature appear within normal limits. The lungs are clear. The pleural margins are clear. Impression: No acute chest process is seen. Electronically signed by: Gale Cook III, MD (04/05/2020 9:58 PM) [id number] DICTATED and SIGNED BY: GALE COOK III, MD DATE: 04/05/202157 [facility] [address] [place] [address] IMAGING REPORT Signed PATIENT: MITCH XIAOUNT: [id number] : 1970 LOCATION: ER AGE: 50 SEX: F EXAM STATUS: REG ER ORD. PHYSICIAN: HARVEY KESSLER MD REASON: dizziness PROCEDURE: CT HEAD WO CONTRAST EXAM: CT Head without IV contrast CLINICAL HISTORY: Reason: dizziness / Spl. Instructions: / History: COMPARISON: None. TECHNIQUE: Routine CT of the head without contrast. Soft tissues and bone windows were reviewed. PQRS compliance statement - One or more of the following individualized dose reduction techniques were utilized for this study: 1. Automated exposure control 2. Adjustment of the mA and/or kV according to patient size 3. Use of iterative reconstruction technique FINDINGS: There is no evidence of hemorrhage, mass or extra-axial fluid collection. Olguin-white differentiation is maintained with no evidence of edema. There is no mass effect or shift of the intracranial structures. The ventricles, basilar cisterns and cortical sulci are normal in size and configuration for the patients stated age. The cerebellum and brainstem are unremarkable. The calvarium demonstrates no evidence of fracture or focal lesion. There is normal aeration of the visualized paranasal sinuses and mastoid air cells. The visualized portions of the orbits are normal. IMPRESSION: No evidence for acute intracranial process. Electronically signed by: Skyler Brown MD (04/05/2020 9:56 PM) [facility] DICTATED and SIGNED BY: SKYLER BROWN MD DATE: 04/05/202155 Course & Med Decision Making: Course & Med Decision Making Pertinent Labs and Imaging studies reviewed. (See chart for details) [] 50-year-old female presents with palpitations and some dizziness. Patient has a normal neurological exam and normal head CT. Doubt acute stroke. Discussed with her the option of admission for MRI patient is medically savvy and declines this. Return precautions given. Patient told to follow-up with a cray fishing hand for Holter monitoring. Dragon Disclaimer: Dragon Disclaimer: This electronic medical record was generated, in whole or in part, using a voice recognition dictation system. Departure Departure Impression: Primary Impression: Palpitations Additional Impression: Dizziness Disposition: 01 HOME, SELF-CARE Condition: STABLE Referrals: BOBBY LOPEZ MD (PCP) Patient Instructions: Dizziness, Palpitations Additional Instructions: EMERGENCY DEPARTMENT GENERAL DISCHARGE INSTRUCTIONS THANK YOU for coming to [facility] Emergency Department (ED) today and trusting us with your care. We trust that you had a positive experience in our Emergency Department. If you wish to speak to the department Management you can contact [facility] supervisor stitching department at . YOUR FOLLOW UP INSTRUCTIONS ARE FOLLOWS: Do you have a private doctor? If you do not have a private doctor, please ask for a resource list of physicians or clinics that may be able to assist you with follow up care. The Emergency Physician has interpreted your x-rays. The X-ray specialist will also review them. If there is a change in the findings you will be notified in 48 hours when at all possible. A lab test or lab culture may have been done, your results will be reviewed and you will be notified if you need a change in treatment. ADDITIONAL INSTRUCTIONS AND INFORMATION Your care today has been supervised by a physician who is specially trained in emergency care. Many problems require more than one evaluation for a complete diagnosis and treatment. We recommend that you schedule your follow up appointment as recommended to ensure complete treatment of your illness or injury. If you are unable to obtain follow up care and continue to have a problem, or if your condition worsens we recommend that you return to the ED. We are not able to safely determine your condition over the phone nor are we able to give sound medical advice over the phone. For these safety reasons, if you call for medical advice we will ask you to come to the ED for further evaluation If you have any questions regarding these discharge instructions please call the ED at . SAFETY INFORMATION In the interest of safety, wellness, and injury prevention; we encourage you to wear your seatbelt, if you smoke; quit smoking, and we encourage your family to use protective helmet for bicycling and other sporting events that present an increased risk for head injury. IF YOUR SYMPTOMS WORSEN OR NEW SYMPTOMS DEVELOP, OR YOU HAVE CONCERNS ABOUT YOUR CONDITION; OR IF YOUR CONDITION WORSENS WHILE YOU ARE WAITING FOR YOUR FOLLOW UP APPOIN TMENT; EITHER CONTACT YOUR PRIMARY CARE DOCTOR, THE PHYSICIAN WHOSE NAME AND NUMBER YOU WERE GIVEN, OR RETURN TO THE ED IMMEDIATELY. Justicifation of Admission Dx: Justifications for Admission: Justification of Admission Dx: N/A HARVEY KESSLER MD Apr 05, 2020 20:57
[2020-04-05 21:20] LABS: BASO # 0.1 x10^3/uL (0.0-0.2); BASO % 1 % (0-3); EOS # 0.3 x10^3/uL (0.0-0.7); EOS % 4 % (0-3); HEMATOCRIT 32.5 % (36.0-47.0); LYMPH # 2.6 x10^3/uL (1.0-4.8); LYMPH % 42 % (24-48); MEAN CORPUSCULAR HEMOGLOBIN 28 pg (25-35); MEAN CORPUSCULAR HGB CONC 34 g/dL (31-37); MEAN CORPUSCULAR VOLUME 82 fL (79-100); MONO # 0.3 x10^3/uL (0.0-1.1); MONO % 5 % (0-9); NEUT # 3.1 x10^3/uL (1.8-7.7); NEUT % 49 % (31-73); PLATELET COUNT 201 x10^3/uL (140-400); RED BLOOD COUNT 3.97 x10^6/uL (3.50-5.40); RED CELL DISTRIBUTION WIDTH 14.2 % (11.5-14.5); WHITE BLOOD COUNT 6.4 x10^3/uL (4.0-11.0)
[2020-04-05 21:39] LABS: CALCIUM 8.6 mg/dL (8.5-10.1); GFR 58.9; POTASSIUM 3.7 mmol/L (3.5-5.1)
[2020-04-05 21:44] LABS: ALBUMIN 3.5 g/dL (3.4-5.0); ALBUMIN/GLOBULIN RATIO 0.8 (1.0-1.7); MAGNESIUM 1.7 mg/dL (1.8-2.4); TOTAL BILIRUBIN 0.9 mg/dL (0.2-1.0); TOTAL PROTEIN 7.8 g/dL (6.4-8.2)
--- NOTE | 2020-04-05 21:58 | RAD ---
EXAM: CT Head without IV contrast CLINICAL HISTORY: Reason: dizziness / Spl. Instructions: / History: COMPARISON: None. TECHNIQUE: Routine CT of the head without contrast. Soft tissues and bone windows were reviewed. PQRS compliance statement - One or more of the following individualized dose reduction techniques were utilized for this study: 1. Automated exposure control 2. Adjustment of the mA and/or kV according to patient size 3. Use of iterative reconstruction technique FINDINGS: There is no evidence of hemorrhage, mass or extra-axial fluid collection. Olguin-white differentiation is maintained with no evidence of edema. There is no mass effect or shift of the intracranial structures. The ventricles, basilar cisterns and cortical sulci are normal in size and configuration for the patients stated age. The cerebellum and brainstem are unremarkable. The calvarium demonstrates no evidence of fracture or focal lesion. There is normal aeration of the visualized paranasal sinuses and mastoid air cells. The visualized portions of the orbits are normal. IMPRESSION: No evidence for acute intracranial process. Electronically signed by: Skyler Machado MD (04/05/2020 9:56 PM) MARCEL
--- NOTE | 2020-04-05 22:01 | RAD ---
CHEST PA LATERAL Technique: PA and lateral views of the chest were obtained. Clinical History: Reason: palpitations / Comparison: None. Findings: The heart and pulmonary vasculature appear within normal limits. The lungs are clear. The pleural margins are clear. Impression: No acute chest process is seen. Electronically signed by: Clive Benjamin III, MD (04/05/2020 9:58 PM) [id number]
[2020-04-05 22:46] VITALS: BP 105/54
--- NOTE | 2020-04-06 04:32 | EKG ---
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
== END 2020-04-05 23:02 | disposition home or self-care (01) ==
LOC: ER 20:27
DX: R00.2 Palpitations (principal); R42 Dizziness and giddiness; F41.9 Anxiety disorder, unspecified; E11.9 Type 2 diabetes mellitus without complications; Z87.891 Personal history of nicotine dependence; Z88.8 Allergy status to other drugs, medicaments and biological substances
CPT/HCPCS: 36415; 70450; 71046; 80053; 83735; 84443; 85025; 93005; 99285-25

== ENCOUNTER → 2020-08-03 | Outpatient (CLI) | payer OTHER ==
[~2020-08-03] MED LIST changes: -OXYC-411 PO; +OXYC1TAB20 PO
== END ==
LOC: LAB 07:53
PROVIDERS: ATTEND Family Medicine
DX: E53.8 Deficiency of other specified B group vitamins (principal); E11.319 Type 2 diabetes mellitus with unspecified diabetic retinopathy without macular edema
CPT/HCPCS: 36415; 82043; 82607; 86340

== ENCOUNTER 2020-08-24 16:38 | Emergency (ER) | payer OTHER ==
[~2020-08-24] VITALS: Ht 170.2 cm; Wt 122.7 kg
--- NOTE | 2020-08-24 17:36 | PHYS DOC ---
Past Medical History Past Medical History: Anxiety, Diabetes-Type II, Stroke, Other Additional Past Medical Histor: SVT, cataracts Past Surgical History: Cholecystectomy, , Hysterectomy, Other Additional Past Surgical Histo: bilateral carpal tunnel, ablation, 'spine surgery',NECK FUSION Smoking Status: Former Smoker Alcohol Use: Rarely Drug Use: None General Adult EDM: Chief Complaint: NEURO SYMPTOMS/DEFICITS HPI: HPI: Patient is a 50 year old female patient presents with left-sided weakness for 5 days. Patient reports she does have a history of a cerebral stroke, with some left-sided deficit, reports she is usually has some weakness to her left side, however the last couple days she has noticed that it seems to become a little bit worse, with some increasing tingling worse in her legs and her arm. States she has been walking okay, however her legs just do feel a bit heavier than u sual. Also reports she did have some ataxia in her left arm, unable to turn pages in a book as she had previously been able to, reports this was new. Denies any history of any falls, denies any trauma. States she has been to physical therapy for her left hip, and they to noticed she seem to be a little bit increased weakness to her left side. She does report she has had some pa resthesias intermittently, for which she receives B12 injections at her primary care, reports she is due for this again tomorrow. Review of Systems: Review of Systems: Constitutional: Denies fever or chills. [] Eyes: Denies change in visual acuity. Denies loss of vision, denies blurred vision [] HENT: Denies nasal congestion or sore throat. [] Respiratory: Denies cough or shortness of breath. [] Cardiovascular: Denies chest pain or edema. [] GI: Denies abdominal pain, nausea, vomiting, bloody stools or diarrhea. [] : Denies dysuria. [] Musculoskeletal: Denies back pain or joint pain. Does report some left-sided weakness and feeling her left side is heavier than usual Integument: Denies rash. [] Neurologic: Denies headache or sensory changes. [] Endocrine: Denies polyuria or polydipsia. [] Lymphatic: Denies swollen glands. [] Psychiatric: Denies depression or anxiety. [] Heart Score: Risk Factors: Risk Factors: DM, Current or recent (<one month) smoker, HTN, HLP, family history of CAD, obesity. Risk Scores: Score 0 - 3: 2.5% MACE over next 6 weeks - Discharge Home Score 4 - 6: 20.3% MACE over next 6 weeks - Admit for Clinical Observation Score 7 - 10: 72.7% MACE over next 6 weeks - Early Invasive Strategies Allergies: Allergies: Allergies Coded Allergies Type Severity Reaction Last Updated Verified adhesive Allergy Intermediate 02/24/19 Yes Physical Exam: PE: Constitutional: Well developed, well nourished, no acute distress, non-toxic appearance. Conversational no apparent distress [] HENT: Normocephalic, atraumatic, bilateral external ears normal, oropharynx moist, no oral exudates, nose normal. No facial droop noted. Eyes: PERRLA, EOMI, conjunctiva normal, no discharge. No ptosis noted. Neck: Normal range of motion, no tenderness, supple, no stridor. [] Cardiovascular:Heart rate regular rhythm, no murmur [] Lungs & Thorax: Bilateral breath sounds clear to auscultation [] Abdomen: Bowel sounds normal, soft, no tenderness, no masses, no pulsatile masses. [] Skin: Warm, dry, no erythema, no rash. [] Back: No tenderness, no CVA tenderness. [] Extremities: No tenderness, no cyanosis, no clubbing, ROM intact, no edema. Strength equal bilaterally Neurologic: Alert and oriented X 3, normal motor function, normal sensory function, no focal deficits noted. [] Psychologic: Affect normal, judgement normal, mood normal. [] EKG: EKG: [] Radiology/Procedures: Radiology/Procedures: []EXAM: CT Head without IV contrast CLINICAL HISTORY: Reason: weakness, hx CVA / Spl. Instructions: / History: COMPARISON: 04/05/2020 TECHNIQUE: Routine CT of the head without contrast. PQRS compliance statement - One or more of the following individualized dose reduction techniques were utilized for this study: 1. Automated exposure control 2. Adjustment of the mA and/or kV according to patient size 3. Use of iterative reconstruction technique FINDINGS: There is no evidence of hemorrhage, mass or extra-axial fluid collection. Olguin-white differentiation is maintained with no evidence of edema. There is no mass effect or shift of the intracranial structures. The ventricles, basilar cisterns and cortical sulci are normal in size and configuration for the patients stated age. The cerebellum and brainstem are unremarkable. The calvarium demonstrates no evidence of fracture or focal lesion. There is normal aeration of the visualized paranasal sinuses and mastoid air cells. The visualized portions of the orbits are normal. IMPRESSION: No evidence for acute intracranial process. Electronically signed by: Skyler Machado MD (08/24/2020 5:52 PM) [facility] DICTATED and SIGNED BY: SKYLER MACHADO MD DATE: 08/24/20 [id number] Course & Med Decision Making: Course & Med Decision Making Pertinent Labs and Imaging studies reviewed. (See chart for details) [] Patient states she continued a little bit of a headache, will provide additional medications. Discussed lab and imaging results with patient, without noted abnormalities on her CT brain recommended patient consider following up with her primary care or neurologist for an MRI if she is concerned patient agreement this plan, will manage headache and plan for discharge with patient to follow-up. Patient does report she is feeling better after medications for headache, states she just feels a bit of paresthesia in her forehead, which she has had in the past. States she does have a follow-up in the primary care office tomorrow and feels good about going home at this time. Dragon Disclaimer: [employer] Disclaimer: This electronic medical record was generated, in whole or in part, using a voice recognition dictation system. Departure Departure Impression: Primary Impression: Left-sided weakness Additional Impression: Headache Qualified Codes: G44.209 - Tension-type headache, unspecified, not intractable Disposition: 01 DC HOME SELF CARE/HOMELESS Condition: GOOD Referrals: BOBBY LOPEZ MD (PCP) Patient Instructions: General Headache Without Cause, Weakness Additional Instructions: As we discussed, there was no acute abnormality noted on your CT scan today. You should follow-up with your primary care provider to determine if you want to further evaluate your weakness today. You may take Tylenol ibuprofen for your headache, however did not take any until after midnight tonight. Keep your follow-up appointment at your primary care office tomorrow CHRISTOPHE DIAZ APRN Aug 24, 2020 17:36
[2020-08-24 17:50] LABS: BASO # 0.1 x10^3/uL (0.0-0.2); BASO % 2 % (0-3); EOS # 0.2 x10^3/uL (0.0-0.7); EOS % 4 % (0-3); HEMATOCRIT 34.8 % (36.0-47.0); HEMOGLOBIN 11.7 g/dL (12.0-15.5); LYMPH # 2.7 x10^3/uL (1.0-4.8); LYMPH % 47 % (24-48); MEAN CORPUSCULAR HEMOGLOBIN 29 pg (25-35); MEAN CORPUSCULAR HGB CONC 34 g/dL (31-37); MEAN CORPUSCULAR VOLUME 87 fL (79-100); MONO # 0.4 x10^3/uL (0.0-1.1); MONO % 6 % (0-9); NEUT # 2.4 x10^3/uL (1.8-7.7); NEUT % 42 % (31-73); PLATELET COUNT 209 x10^3/uL (140-400); RED BLOOD COUNT 4.01 x10^6/uL (3.50-5.40); WHITE BLOOD COUNT 5.7 x10^3/uL (4.0-11.0)
--- NOTE | 2020-08-24 17:55 | RAD ---
EXAM: CT Head without IV contrast CLINICAL HISTORY: Reason: weakness, hx CVA / Spl. Instructions: / History: COMPARISON: 04/05/2020 TECHNIQUE: Routine CT of the head without contrast. PQRS compliance statement - One or more of the following individualized dose reduction techniques were utilized for this study: 1. Automated exposure control 2. Adjustment of the mA and/or kV according to patient size 3. Use of iterative reconstruction technique FINDINGS: There is no evidence of hemorrhage, mass or extra-axial fluid collection. Olguin-white differentiation is maintained with no evidence of edema. There is no mass effect or shift of the intracranial structures. The ventricles, basilar cisterns and cortical sulci are normal in size and configuration for the patients stated age. The cerebellum and brainstem are unremarkable. The calvarium demonstrates no evidence of fracture or focal lesion. There is normal aeration of the visualized paranasal sinuses and mastoid air cells. The visualized portions of the orbits are normal. IMPRESSION: No evidence for acute intracranial process. Electronically signed by: Skyler Machado MD (08/24/2020 5:52 PM) MARCEL
[2020-08-24] MEDS ORDERED: ACETAMINOPHEN 325 MG TABLET. PO ONE (18:00)
[2020-08-24] MEDS ORDERED: KETOROLAC 15 MG/ML VIAL. IVP ONE (18:00)
[2020-08-24 18:09] LABS: CALCIUM 8.9 mg/dL (8.5-10.1); CREATININE 0.6 mg/dL (0.6-1.0); GFR 106.3; POTASSIUM 3.7 mmol/L (3.5-5.1)
[2020-08-24 18:15] LABS: ALBUMIN 3.6 g/dL (3.4-5.0); ALBUMIN/GLOBULIN RATIO 0.9 (1.0-1.7); MAGNESIUM 1.8 mg/dL (1.8-2.4); TOTAL BILIRUBIN 0.7 mg/dL (0.2-1.0); TOTAL PROTEIN 7.7 g/dL (6.4-8.2)
[2020-08-24] MEDS ORDERED: diphenhydrAMINE 50 MG/ML VIAL IVP ONE (18:30)
[2020-08-24 19:30] VITALS: BP 137/67
== END 2020-08-24 19:50 | disposition home or self-care (01) ==
LOC: ER 16:38
DX: G44.209 Tension-type headache, unspecified, not intractable (principal); R53.1 Weakness; R20.2 Paresthesia of skin; E11.9 Type 2 diabetes mellitus without complications; Z87.891 Personal history of nicotine dependence; Z86.73 Personal history of transient ischemic attack (TIA), and cerebral infarction without residual deficits; Z88.8 Allergy status to other drugs, medicaments and biological substances
CPT/HCPCS: 36415; 70450; 80053; 83735; 84443; 84484; 85025; 96374; 96375; 99285; J1200; J1885

== ENCOUNTER → 2020-08-31 | Outpatient (CLI) | payer OTHER ==
[2020-08-24 19:30] VITALS: BP 137/67
--- NOTE | 2020-08-31 10:50 | RAD ---
MRI of the cervical spine without contrast 08/31/2020 CLINICAL HISTORY: Cervical stenosis. TECHNIQUE: Unenhanced T1-weighted, T2-weighted and recovery sagittal and gradient echo and T2-weighte d axial images of the cervical spine were obtained. FINDINGS: Comparison is made to radiographs of the cervical spine dated 09/13/2018. Minimal lateral curvature of the cervical spine is seen convex to the right. There is straightening o f the normal cervical lordosis. The patient is post anterior discectomy and fusion using what appears to be an anterior plate, bone screws and bone graft material at C5-6. Degenerative signal changes ar e seen involving the remaining discs of the cervical spine. Degenerative signal changes are seen with in the marrow surrounding these discs. The cervical spinal cord is normal morphology, position, and s ignal characteristics. At the C2-3 disc space there is a minimal generalized disc bulge. Degenerative changes are seen invol ving the uncovertebral and facet joints, left greater than right. These findings do not result in sig nificant central spinal canal or neural foraminal stenosis. At the C3-4 disc space there is a mild generalized disc bulge. Degenerative changes are seen involvin g the uncovertebral and facet joints, right greater than left. These findings do not result in signif icant central spinal canal or neural foraminal stenosis. At the C4-5 disc space is a mild generalized disc bulge. Degenerative changes are seen involving the uncovertebral and facet joints bilaterally. These findings do not result in significant central spina l canal or neural foraminal stenosis. At the C5-6 disc space degenerative changes are seen involving the uncovertebral and facet joints, le ft greater than right. These findings do not result in significant central spinal canal stenosis mild left neural foraminal stenosis is seen. The right neural foramen is patent. A 6 7 disc space there is a mild generalized disc bulge. Degenerative changes are seen involving the uncovertebral and facet joints bilaterally. These findings do not result in significant central spina l canal or neural foraminal stenosis. C7-T1 disc space there is a minimal generalized disc bulge. Degenerative changes are seen involving t he facet joints bilaterally. These findings do not result in significant central spinal canal or neur al foraminal stenosis. IMPRESSION: 1. Status post anterior discectomy and fusion at C5-6. 2. Degenerative changes are seen throughout the cervical spine. These findings do not result in sign ificant central spinal canal stenosis at any level. Mild left neural foraminal stenosis is seen at C5 -6. Electronically signed by: Jhon Mancuso MD (08/31/2020 10:48 AM) [id number]
--- NOTE | 2020-08-31 11:43 | RAD ---
EXAM: Pelvis and left hip, 3 views. HISTORY: Pain. COMPARISON: None. FINDINGS: A frontal view the pelvis and 2 views of the left hip are obtained. There is no fracture, d islocation or subluxation. There is minimal marginal acetabular and femoral head spurring. There is a tiny bump at the femoral head-neck junction, a finding which can be seen with chronic hip impingemen t. There is a single station of the right L5 transverse process resulting in articulation with the un derlying sacrum, a normal variant. IMPRESSION: 1. Mild left hip osteoarthritis and findings suggesting mild chronic left hip impingement. 2. Sacralization of the right L5 transverse process resulting in articulation with the underlying sac rum, a normal variant. Electronically signed by: Nataly Reinoso MD (08/31/2020 11:41 AM) [id number]
== END ==
LOC: MRI 09:51
PROVIDERS: ATTEND Psychiatry & Neurology Neurology
DX: M16.12 Unilateral primary osteoarthritis, left hip (principal); M48.02 Spinal stenosis, cervical region; M47.812 Spondylosis without myelopathy or radiculopathy, cervical region; Z98.1 Arthrodesis status
CPT/HCPCS: 72141; 73502

== ENCOUNTER → 2020-11-23 | Outpatient (CLI) | payer OTHER ==
--- NOTE | 2020-11-23 15:42 | RAD ---
EXAM: Bilateral digital screening mammogram with tomosynthesis. HISTORY: 50-year-old female presents for screening mammography. TECHNIQUE: Full-field digital craniocaudal and mediolateral oblique 2D and 3D tomosynthesis images of both breasts are obtained for evaluation. Computer aided detection was applied. COMPARISON: 11/11/2019 BREAST PARENCHYMAL DENSITY: Level A - Mostly fat. FINDINGS: There is no new suspicious mass, microcalcification or region of architectural distortion. IMPRESSION: BI-RADS Category 2: Benign finding(s). RECOMMENDATION: Annual mammography is recommended. If your mammogram demonstrates that you have dense breast tissue, which could hide abnormalities, and if you have other risk factors for breast cancer that have been identified, you might benefit from s upplemental screening tests that may be suggested by your ordering physician. Dense breast tissue, i n and of itself, is a relatively common condition. This information is not provided to cause undue c oncern, but rather to raise your awareness and to promote discussion with your physician regarding th e presence of other risk factors, in addition to dense breast tissue. A report of your mammography re sults will be sent to you and your physician. You should contact your physician if you have any ques tions or concerns regarding this report. Mammography is a sensitive method for finding small breast cancers, but it does not detect them all a nd is not a substitute for careful clinical examination. A negative mammogram does not negate a clin ically suspicious finding and should not result in delay in biopsying a clinically suspicious abnorma lity. PQRS compliance statement - Patient information was entered into a reminder system with a target due date for the next mammogram. "Our facility is accredited by the [employer] Mammography [employer]." Electronically signed by: Nataly Reinoso MD (11/23/2020 3:39 PM) [id number]
== END ==
LOC: MAMMO 08:34
PROVIDERS: ATTEND Family Medicine
DX: Z12.31 Encounter for screening mammogram for malignant neoplasm of breast (principal)
CPT/HCPCS: 77063; 77067

== ENCOUNTER 2021-01-20 20:06 | Emergency (ER) | payer OTHER ==
[~2021-01-20] VITALS: Ht 167.6 cm; Wt 122.0 kg
[2021-01-20 20:14] VITALS: BP 116/73
[2021-01-20] MEDS ORDERED: NAPROXEN 500 MG TABLET PO ONE (20:25)
[2021-01-20] MEDS ORDERED: HYDROcodone/APAP 5/325MG 1 TAB TABLET PO ONE (20:30)
[2021-01-20] MEDS ORDERED: predniSONE 10 MG TABLET PO ONE (20:30)
--- NOTE | 2021-01-20 21:56 | PHYS DOC ---
Past Medical History Past Medical History: Anxiety, Diabetes-Type II, Stroke, Other Additional Past Medical Histor: SVT, cataracts Past Surgical History: Cholecystectomy, , Hysterectomy, Other Additional Past Surgical Histo: bilateral carpal tunnel, ablation, 'spine surgery C5-C6',NECK FUSION Smoking Status: Never Smoker Alcohol Use: None Drug Use: None General Adult EDM: Chief Complaint: KNEE INJURY HPI: HPI: Patient is a 50 year old female patient who presents to the ED today with a sharp 6 out of 10 left knee pain that began after she jumped off a 2 foot wall. Patient denies falling. She states she heard a pop sound from the left knee. She states she has the most pain when flexing the knee. She states immobilization relieves some of the pain. She also took ibuprofen prior to coming to the ED which relieved some of the pain Review of Systems: Review of Systems: Constitutional: Denies fever or chills. [] Musculoskeletal: Reports left knee pain. Denies back pain Integument: Denies rash. [] Neurologic: Denies headache, focal weakness or sensory changes. [] Psychiatric: Denies depression or anxiety. [] Heart Score: C/O Chest Pain: N/A Risk Factors: Risk Factors: DM, Current or recent (<one month) smoker, HTN, HLP, family history of CAD, obesity. Risk Scores: Score 0 - 3: 2.5% MACE over next 6 weeks - Discharge Home Score 4 - 6: 20.3% MACE over next 6 weeks - Admit for Clinical Observation Score 7 - 10: 72.7% MACE over next 6 weeks - Early Invasive Strategies Current Medications: Current Medications Medications (Trade) Dose Ordered Sig/Eh Start Time Stop Time Status Last Admin Dose Admin Acetaminophen/ Hydrocodone Bitart (Lortab 5/325) 2 tab 1X ONCE 01/20/21 20:30 01/20/21 20:31 DC 01/20/21 20:48 2 TAB Naproxen (Naprosyn) 500 mg 1X ONCE 01/20/21 20:25 01/20/21 20:28 DC 01/20/21 20:48 500 MG Prednisone (Prednisone) 50 mg 1X ONCE 01/20/21 20:30 01/20/21 20:31 DC 01/20/21 20:47 50 MG Allergies: Allergies: Allergies Coded Allergies Type Severity Reaction Last Updated Verified adhesive Allergy Intermediate 02/24/19 Yes Physical Exam: PE: Constitutional: Well developed, well nourished, no acute distress, non-toxic appearance. [] Skin: Warm, dry, no erythema, no rash. [] Back: No tenderness, no CVA tenderness. [] Extremities: Left knee with no obvious deformity. Tenderness on the back of the knee as well as the anterior aspect. Limited range of motion to the knee especially full flexion due to pain. +2 left pedal pulse. Cap refill less than 2 seconds to left toes Neurologic: Alert and oriented X 3, normal motor function, normal sensory function, no focal deficits noted. [] Psychologic: Affect normal, judgement normal, mood normal. [] Current Patient Data: Vital Signs: Vital Signs Date Time Temp Pulse Resp B/P (MAP) Pulse Ox O2 Delivery O2 Flow Rate FiO2 01/20/21 20:14 96.8 95 20 116/73 (87) 97 Room Air 96.8 EKG: EKG: [] Radiology/Procedures: Radiology/Procedures: []PROCEDURE: KNEE LEFT 3V Study: XR KNEE _3 VIEWS_LT Indication: Pain. Comparison: None. Findings: No acute fracture. Alignment is maintained. Mild medial femorotibial compartment joint space narrowing. Small patellar osteophytes. Chronic spurring at the tib ial tuberosity. No large knee joint effusion. Impression: 1. No acute osseous abnormality. 2. Mild medial femorotibial and patellofemoral compartment arthrosis. Electronically signed by: URMILA HANSEN MD (01/20/2021 9:57 PM) [facility] DICTATED and SIGNED BY: URMILA HANSEN MD DATE: 01/20/21 [id number] 0 Course & Med Decision Making: Course & Med Decision Making Pertinent Labs and Imaging studies reviewed. (See chart for details) This is a 50-year-old female patient presenting to the ED today with left knee pain that began after she jumped off a 2 foot wall. Left knee x-rays interpreted by radiologist are negative for any acute findings. Noted for DJD. Discharged home, follow-up with Ortho. Knee immobilizer applied to the left knee by the ED RN, neurovascular exam is intact. Dragon Disclaimer: Dragjoseline Disclaimer: This electronic medical record was generated, in whole or in part, using a voice recognition dictation system. Departure Departure Impression: Primary Impression: Left knee sprain Qualified Codes: S83.92XA - Sprain of unspecified site of left knee, initial encounter Additional Impression: Left knee DJD Qualified Codes: M17.12 - Unilateral primary osteoarthritis, left knee Disposition: HOME / SELF CARE / HOMELESS Condition: STABLE Referrals: BOBBY LOPEZ MD (PCP) GALE AGUIRER MD Follow-up in 1 week Patient Instructions: Knee Sprain, [id number] Additional Instructions: You were evaluated in the emergency room for knee pain. Your left knee x-rays were negative for any acute findings, noted for arthrosis/arthritis. Try to ice and elevate the extremity. Follow-up with the orthopedic doctor in 1 to 2 weeks. Take the prescribed pain medicine as needed for pain. Scripts Hydrocodone Bit/Acetaminophen (HYDROCODONE-APAP 5-325 ) 1 Tab Tablet 1 TAB PO PRN Q6HRS PRN for PAIN, #20 TAB 0 Refills Prov: VIVEK THOMAS APRN 01/20/21 VIVEK THOMAS APRN January 20, 2021 21:56
--- NOTE | 2021-01-20 21:59 | RAD ---
Study: XR KNEE _3 VIEWS_LT Indication: Pain. Comparison: None. Findings: No acute fracture. Alignment is maintained. Mild medial femorotibial compartment joint space narrowin g. Small patellar osteophytes. Chronic spurring at the tibial tuberosity. No large knee joint effusio n. Impression: 1. No acute osseous abnormality. 2. Mild medial femorotibial and patellofemoral compartment arthrosis. Electronically signed by: URMILA HANSEN MD (01/20/2021 9:57 PM) [facility]
[2021-01-20] MEDS ORDERED: HYDR-2761 PO (22:09)
== END 2021-01-20 22:22 | disposition home or self-care (01) ==
LOC: ER 20:06
DX: S83.92XA Sprain of unspecified site of left knee, initial encounter (principal); M17.12 Unilateral primary osteoarthritis, left knee; E11.9 Type 2 diabetes mellitus without complications; Z90.49 Acquired absence of other specified parts of digestive tract; Z90.710 Acquired absence of both cervix and uterus; Z86.73 Personal history of transient ischemic attack (TIA), and cerebral infarction without residual deficits; Z88.8 Allergy status to other drugs, medicaments and biological substances; W17.89XA Other fall from one level to another, initial encounter; Y93.39 Activity, other involving climbing, rappelling and jumping off; Y92.89 Other specified places as the place of occurrence of the external cause; Y99.8 Other external cause status
CPT/HCPCS: 29505; 73562; 99284; J7512

== ENCOUNTER 2021-09-02 08:36 | Emergency (ER) | payer OTHER ==
[~2021-09-02] VITALS: Ht 170.2 cm; Wt 117.0 kg
[~2021-09-02 08:36] MED LIST changes: +CYCL10TA19 PO; -CYCL10TA2 PO; -SCOP1PAT11 TP; +SCOP1PAT12 TP
--- NOTE | 2021-09-02 09:15 | PHYS DOC ---
Past Medical History Past Medical History: Anxiety, Diabetes-Type II, Stroke, Other Additional Past Medical Histor: SVT, cataracts Past Surgical History: Cholecystectomy, , Hysterectomy, Other Additional Past Surgical Histo: bilateral carpal tunnel, ablation, 'spine surgery C5-C6',NECK FUSION Smoking Status: Never Smoker Alcohol Use: None Drug Use: None General Adult EDM: Chief Complaint: NAUSEA/VOMITING/DIARRHEA HPI: HPI: Patient is a 51 year old female who presents with multiple complaints. She reports at least 4 weeks of intermittent dizziness, which she describes as both lightheaded, but she also describes some vertigo symptoms. Many of the episodes are related to movement and changes in position, though over the past couple of weeks, the symptoms seem to linger more consistently, and are more subtle at times than others. She reports a mild headache, which she has had before. She denies fall, head trauma, syncope. She has chronic left upper and left lower sensation changes since she had a CVA previously. She adamantly denies any acute changes with this. She denies any new or changed focal motor weakness. She denies numbness. She reports a very brief episode of right-sided chest discomfort, which occurred over 24 hours ago, none since then. She denies dyspnea. She has frequent palpitations and reports that she feels like she is having PVCs. She reports that she has a history of SVT, for which she takes metoprolol. She reports compliance with treatment. She denies abdominal pain. She reports nausea, she has vomited once, but no persistent vomiting reported. No bowel habit changes reported. She denies urinary symptoms. She reports that she contacted her primary care doctor's office today, was unable to be seen until next week, so she decided to come to the ER. She has no active dizziness or vertigo symptoms at present. Review of Systems: Review of Systems: Constitutional: Denies fever or chills. [] Eyes: Denies change in visual acuity. [] HENT: Denies nasal congestion or sore throat. She has chronic hearing loss and tinnitus, unchanged today. Respiratory: Denies cough or shortness of breath. [] Cardiovascular: Episode of brief right-sided chest pain, since resolved. No persistent chest pain or pressure. No peripheral edema. No syncope GI: Denies abdominal pain, vomiting, bowel habit changes. She does report nausea associated with dizziness. : Denies Jefry symptoms Musculoskeletal: Denies back pain or joint pain. [] Integument: Denies rash. [] Neurologic: He does report a headache, which is unchanged from previous. She denies focal weakness or numbness. She has chronic decreased sensation on her left upper extremity and left lower extremity, unchanged from previous CVA. She denies syncope. She does report dizziness. Psychiatric: Denies depression or anxiety. [] Heart Score: C/O Chest Pain: Yes HEART Score for Chest Pain: HEART Score for Chest Pain Response (Comments) Value History Slighlty/Non-Suspicious 0 Age >45 - < 65 1 Risk Factors 1 or 2 Risk Factors 1 Troponin < Normal Limit 0 Total 2 Risk Factors: Risk Factors: DM, Current or recent (<one month) smoker, HTN, HLP, family history of CAD, obesity. Risk Scores: Score 0 - 3: 2.5% MACE over next 6 weeks - Discharge Home Score 4 - 6: 20.3% MACE over next 6 weeks - Admit for Clinical Observation Score 7 - 10: 72.7% MACE over next 6 weeks - Early Invasive Strategies Allergies: Allergies: Allergies Coded Allergies Type Severity Reaction Last Updated Verified adhesive Allergy Intermediate 02/24/19 Yes Physical Exam: PE: Constitutional: Well developed, well nourished, no acute distress, non-toxic appearance. [] HENT: Normocephalic, atraumatic, oropharynx is patent and clear, mucous membranes are moist. TMs are clear bilaterally. Eyes: PERRL, EOMI, conjunctiva normal, no discharge. No nystagmus. Sclera are clear and anicteric Neck: Normal range of motion, no tenderness, supple, no stridor. Achy midline. No JVD. Cardiovascular:Heart rate regular rhythm, +2 radial and +2 posterior tibial pulses bilaterally. Lungs & Thorax: Bilateral breath sounds clear to auscultation [] Abdomen: Bowel sounds normal, soft, no tenderness, no masses, no pulsatile masses. [] Skin: Warm, dry, no erythema, no rash. [] Back: No tenderness, no CVA tenderness. [] Extremities: No tenderness, no cyanosis, no clubbing, ROM intact, no edema. [] Neurologic: Awake, alert, oriented x3. Cranial nerves II through XII grossly intact. 5 out of 5 motor strength all 4 extremities. No pronator drift. No dysmetria. No limb ataxia. Speech is clear and fluent. Very minimally decreased sensation of her left forearm and left lower leg, but sensation is still intact. She reports this is chronic from previous CVA, unchanged. Her gait is steady. Psychologic: She is slightly anxious, but she is cooperative and pleasant. [] EKG: EKG: EKG is interpreted at 0920 Rhythms is sinus Rate is 65 bpm [place] is normal No STEMI Radiology/Procedures: Radiology/Procedures: IMAGING REPORT Signed PATIENT: MITCH XIAO JACCOUNT: [id number] : 1970 LOCATION: ER AGE: 51 SEX: F EXAM STATUS: REG ER ORD. PHYSICIAN: SARITA NUNEZ DO REASON: dizziness PROCEDURE: CT HEAD WO CONTRAST PQRS Compliance Statement: One or more of the following individualized dose reduction techniques were utilized for this examination: 1. Automated exposure control 2. Adjustment of the mA and/or kV according to patient size 3. Use of iterative reconstruction technique CT HEAD WITHOUT CONTRAST History: Reason: dizziness / Spl. Instructions: / History: Comparison: CT head without contrast, August 24, 2020. Procedure: Axial images are obtained of the head from the skull base through the vertex without IV contrast. Findings: The ventricles and sulci are normal for the patient's age. No mass-effect, midline shift, hemorrhage, extra-axial fluid collection, or obvious acute infarction is identified. Basilar cisterns are patent. Bone windows demonstrate no acute calvarial abnormality. The visualized paranasal sinuses are clear. Mastoid air cells are well aerated. IMPRESSION: No acute intracranial abnormality. Electronically signed by: Sloan Hernandez MD (09/02/2021 10:32 AM) [id number] DICTATED and SIGNED BY: SLOAN HERNANDEZ MD DATE: 09/02/21 [id number] 0 Course & Med Decision Making: Course & Med Decision Making Pertinent Labs and Imaging studies reviewed. (See chart for details) I have discussed the findings, differential diagnosis and plan of care with her. P.o. Tylenol is given for headache. CT of the head is unremarkable for any acute process. Remainder of laboratory exams are unremarkable for acute life- threatening process. I have discussed that she must follow-up with her neurologist, who is located at an outside facility, and the name of which she cannot remember. I encouraged her to keep her scheduled appointment with her PCP next week. No current indication for further imaging, invasive exams or admission at this time, based on current presentation. Her symptoms are weeks long, unchanged admittedly today. She has an unremarkable neurologic exam. She is ambulatory. She is well-appearing, hemodynamically stable. She is comfortable with the plan for discharge home. Dragon Disclaimer: Sabrina Disclaimer: This electronic medical record was generated, in whole or in part, using a voice recognition dictation system. Departure Departure Impression: Primary Impression: Dizziness Additional Impression: Nausea Disposition: HOME / SELF CARE / HOMELESS Condition: STABLE Referrals: BOBBY LOPEZ MD (PCP) Patient Instructions: Dizziness, Vertigo Additional Instructions: Use the medications as directed/as needed. Make sure you stay well-hydrated. Return to the ER for more severe headache, uncontrolled vomiting, dehydration, severe persistent chest pain, shortness of breath, focal weakness, or any other concerns. You may take your meclizine as needed. Use the Zofran for nausea. Stay well-hydrated. Try to get plenty of rest. Keep your scheduled appointment with your primary care physician next week. You should also consider seeing your neurologist as well. Scripts Ondansetron Hcl (ZOFRAN) 4 Mg Tablet 4 MG PO PRN TID PRN for VOMITING, #20 TAB nausea/vomiting Prov: SARITA NUNEZ DO 09/02/21 SARITA NUNEZ DO Sep 02, 2021 09:15
[2021-09-02] MEDS ORDERED: ONDANSETRON PF 4 MG/2 ML VIAL. IVP ONE (09:45)
[2021-09-02] MEDS ORDERED: IV NORMAL SALINE 1000ML BAG 1,000 ML IV ONE (09:45)
[2021-09-02] MEDS ORDERED: ACETAMINOPHEN 500 MG TABLET PO ONE (09:45)
[2021-09-02 09:58] LABS: CALCIUM 7.7 mg/dL (8.5-10.1); CREATININE 0.8 mg/dL (0.6-1.0); GFR 75.9; POTASSIUM 3.6 mmol/L (3.5-5.1)
[2021-09-02 10:00] LABS: BASO % 1 % (0-3); EOS # 0.2 x10^3/uL (0.0-0.7); EOS % 3 % (0-3); HEMATOCRIT 34.5 % (36.0-47.0); HEMOGLOBIN 11.4 g/dL (12.0-15.5); LYMPH # 2.3 x10^3/uL (1.0-4.8); LYMPH % 42 % (24-48); MEAN CORPUSCULAR HEMOGLOBIN 29 pg (25-35); MEAN CORPUSCULAR HGB CONC 33 g/dL (31-37); MEAN CORPUSCULAR VOLUME 88 fL (79-100); MONO # 0.3 x10^3/uL (0.0-1.1); MONO % 6 % (0-9); NEUT # 2.7 x10^3/uL (1.8-7.7); NEUT % 49 % (31-73); PLATELET COUNT 215 x10^3/uL (140-400); RED BLOOD COUNT 3.93 x10^6/uL (3.50-5.40); RED CELL DISTRIBUTION WIDTH 14.4 % (11.5-14.5); WHITE BLOOD COUNT 5.5 x10^3/uL (4.0-11.0)
[2021-09-02 10:03] LABS: MAGNESIUM 1.7 mg/dL (1.8-2.4); PHOSPHORUS 3.5 mg/dL (2.6-4.7)
--- NOTE | 2021-09-02 10:34 | RAD ---
PQRS Compliance Statement: One or more of the following individualized dose reduction techniques were utilized for this examinat ion: 1. Automated exposure control 2. Adjustment of the mA and/or kV according to patient size 3. Use of iterative reconstruction technique CT HEAD WITHOUT CONTRAST History: Reason: dizziness / Spl. Instructions: / History: Comparison: CT head without contrast, August 24, 2020. Procedure: Axial images are obtained of the head from the skull base through the vertex without IV co ntrast. Findings: The ventricles and sulci are normal for the patient's age. No mass-effect, midline shift, hemorrhage, extra-axial fluid collection, or obvious acute infarction is identified. Basilar cisterns are patent. Bone windows demonstrate no acute calvarial abnormality. The visualized paranasal sinuses are clear. Mastoid air cells are well aerated. IMPRESSION: No acute intracranial abnormality. Electronically signed by: Sloan Hernandez MD (09/02/2021 10:32 AM) [id number]
[2021-09-02 12:40] LABS: BILIRUBIN,URINE NEGATIVE (NEG); CLARITY,URINE CLEAR; COLOR,URINE YELLOW; NITRITE,URINE NEGATIVE (NEG); PH,URINE 5.5 (<5.0-8.0); PROTEIN,URINE NEGATIVE (NEG-TRACE); UROBILINOGEN,URINE 0.2 mg/dL (0.2 mg/dL)
[2021-09-02 13:15] VITALS: BP 101/61
[2021-09-02 13:21] LABS: HYALINE CASTS, URINE OCCASIONAL /HPF
[2021-09-02 13:23] LABS: BACTERIA,URINE 0 /HPF (0-FEW); RBC,URINE RARE /HPF (0-2)
[2021-09-02] MEDS ORDERED: ONDA4TAB7 PO (13:36)
--- NOTE | 2021-09-04 08:07 | EKG ---
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
--- NOTE | 2021-09-12 14:42 | EKG ---
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
== END 2021-09-02 13:45 | disposition home or self-care (01) ==
LOC: ER 08:36
DX: R42 Dizziness and giddiness (principal); R51.9 Headache, unspecified; R11.0 Nausea; R07.89 Other chest pain; F41.9 Anxiety disorder, unspecified; E11.9 Type 2 diabetes mellitus without complications; Z86.73 Personal history of transient ischemic attack (TIA), and cerebral infarction without residual deficits; Z88.8 Allergy status to other drugs, medicaments and biological substances
CPT/HCPCS: 36415; 70450; 80048; 81001; 82550; 83735; 84100; 84484; 85025; 87086; 93005; 96361; 96374; 99285; J2405; J7030

== ENCOUNTER → 2021-09-08 | Outpatient (CLI) | payer OTHER ==
[2021-09-02 13:15] VITALS: BP 101/61
[~2021-09-08] MED LIST changes: +ONDA4TAB7 PO
[2021-09-08 03:09] LABS: BASO % 1 % (0-3); EOS # 0.2 x10^3/uL (0.0-0.7); EOS % 4 % (0-3); HEMATOCRIT 35.6 % (36.0-47.0); HEMOGLOBIN 11.8 g/dL (12.0-15.5); LYMPH # 2.3 x10^3/uL (1.0-4.8); LYMPH % 43 % (24-48); MEAN CORPUSCULAR HEMOGLOBIN 29 pg (25-35); MEAN CORPUSCULAR HGB CONC 33 g/dL (31-37); MEAN CORPUSCULAR VOLUME 87 fL (79-100); MONO # 0.4 x10^3/uL (0.0-1.1); MONO % 8 % (0-9); NEUT # 2.5 x10^3/uL (1.8-7.7); NEUT % 45 % (31-73); PLATELET COUNT 209 x10^3/uL (140-400); RED BLOOD COUNT 4.09 x10^6/uL (3.50-5.40); RED CELL DISTRIBUTION WIDTH 14.3 % (11.5-14.5); WHITE BLOOD COUNT 5.4 x10^3/uL (4.0-11.0)
[2021-09-08 03:18] LABS: CREATININE,RANDOM URINE 139.1 mg/dL (Not Establ.)
[2021-09-08 03:26] LABS: ALBUMIN 3.5 g/dL (3.4-5.0); ALBUMIN/GLOBULIN RATIO 0.8 (1.0-1.7); CALCIUM 8.4 mg/dL (8.5-10.1); CREATININE 0.8 mg/dL (0.6-1.0); GFR 75.9; POTASSIUM 4.1 mmol/L (3.5-5.1); TOTAL BILIRUBIN 1.2 mg/dL (0.2-1.0); TOTAL PROTEIN 7.9 g/dL (6.4-8.2)
[2021-09-08 03:27] LABS: CHOLESTEROL/HDL RATIO 2.9
[2021-09-08 03:37] LABS: FREE T4 0.95 ng/dL (0.76-1.46); THYROID STIM HORMONE (TSH) 3.144 uIU/mL (0.358-3.74)
== END ==
LOC: LAB 02:41
PROVIDERS: ATTEND Family Medicine
DX: E11.319 Type 2 diabetes mellitus with unspecified diabetic retinopathy without macular edema (principal); R11.0 Nausea; R42 Dizziness and giddiness; R53.83 Other fatigue
CPT/HCPCS: 36415; 80053; 80061; 82570; 84156; 84439; 84443; 85025; 85651

== ENCOUNTER → 2021-10-01 | Outpatient (CLI) | payer OTHER ==
[2021-09-02 13:15] VITALS: BP 101/61
--- NOTE | 2021-10-03 05:38 | NUR ---
IP: Informed pt of positive covid test and the need to quarantine for 10 days.
== END ==
LOC: LAB 13:59
PROVIDERS: ATTEND Internal Medicine Pulmonary Disease
DX: U07.1 COVID-19 (principal); R43.8 Other disturbances of smell and taste; R53.81 Other malaise; M79.10 Myalgia, unspecified site
CPT/HCPCS: U0003; U0005

== ENCOUNTER → 2021-11-16 | Day surgery (SDC) | payer OTHER ==
[~2021-11-16] VITALS: Ht 167.6 cm; Wt 115.0 kg
[~2021-11-16] MED LIST changes: +HYDROmorphone 2 MG/ML INJ. IVP PRN; +IV RINGERS,LACTATED 1000ML 1,000 ML IV SCH; +LIDOCAINE 2% PF 5 ML VIAL. ONE; +MORPHINE SULFATE 2 MG/ML INJ. IVP PRN; +PROCHLORPERAZINE 10 MG/2 ML VIAL. IVP PRN; +PROPOFOL 10 MG/ML (20ML) VIAL. IV ONE; +fentaNYL PF VIAL 100 MCG/2 ML VIAL IVP PRN
[2021-11-16 06:59] VITALS: BP 129/76
[2021-11-16 08:04] VITALS: BP 118/59
--- NOTE | 2021-11-17 15:08 | PATHOLOGY ---
[facility] Accession Number: [id number] . 01 Material submitted: . sigmoid colon - SIGMOID COLON BIOPSY . 01 Clinical history: . CRC SCREEN COLONOSCOPY . 02 Diagnosis: Colon biopsies, sigmoid colon polyps: - Tubular adenoma. - Hyperplastic polyp. LBQ 11/17/2021 1201 Local . 02 Comment: Sections of the sigmoid colon biopsy reveal several segments of tubular adenoma, in addition to segments of colonic mucosa showing superficial mucosal epithelial hyperplastic changes consistent with hyperplastic polyp. There is no high grade dysplasia or evidence of malignancy. (JPM/db; 11/17/2021) . 02 Electronically signed: . Aidan Merino MD, Pathologist NPI- [id number] . 01 Gross description: . The specimen is received in formalin, labeled "Shyann, Elissa, sigmoid polyp BX". Received are multiple fragments of pale hart tissue measuring 0.7 x 0.4 x 0.1 cm in aggregate dimensions. The specimen is submitted entirely submitted in cassette A1. ([facility]; 11/16/2021) NRI/NRI 11/16/2021 1747 Local . 02 Pathologist provided ICD-10: D12.5, K63.5 . 02 CPT . 561957 Specimen Comment: A courtesy copy of this report has been sent to [phone] Specimen Comment: Report sent to / DR LOPEZ Performed at: 01 [facility] [address], [place] [id number] MD Geovanny Vera MD Phone: [phone] Performed at: 02 [facility] [address] [place], [place] [id number] MD Aidan Merino MD Phone: [phone]
== END | disposition home or self-care (01) ==
LOC: ENDOS 06:37
PROVIDERS: ATTEND Internal Medicine Gastroenterology
DX: Z12.11 Encounter for screening for malignant neoplasm of colon (principal); K64.0 First degree hemorrhoids; D12.5 Benign neoplasm of sigmoid colon; K63.89 Other specified diseases of intestine; E11.9 Type 2 diabetes mellitus without complications; E66.9 Obesity, unspecified; M19.90 Unspecified osteoarthritis, unspecified site; F41.9 Anxiety disorder, unspecified; Z90.49 Acquired absence of other specified parts of digestive tract; Z90.710 Acquired absence of both cervix and uterus; Z98.890 Other specified postprocedural states; Z79.82 Long term (current) use of aspirin; Z79.84 Long term (current) use of oral hypoglycemic drugs; Z79.899 Other long term (current) drug therapy; Z72.89 Other problems related to lifestyle; Z88.8 Allergy status to other drugs, medicaments and biological substances
CPT/HCPCS: 45380; J2704; 88305

== ENCOUNTER → 2021-12-14 | Outpatient (CLI) | payer OTHER ==
[2021-11-16 08:04] VITALS: BP 118/59
[~2021-12-14] MED LIST changes: -HYDROmorphone 2 MG/ML INJ. IVP PRN; -IV RINGERS,LACTATED 1000ML 1,000 ML IV SCH; -LIDOCAINE 2% PF 5 ML VIAL. ONE; -MORPHINE SULFATE 2 MG/ML INJ. IVP PRN; -PROCHLORPERAZINE 10 MG/2 ML VIAL. IVP PRN; -PROPOFOL 10 MG/ML (20ML) VIAL. IV ONE; -fentaNYL PF VIAL 100 MCG/2 ML VIAL IVP PRN
--- NOTE | 2021-12-14 11:24 | RAD ---
Bilateral digital screening 2-D and 3-D (digital breast tomosynthesis) mammogram: Reason for examination: Routine screening. Comparison: Mammograms from 11/23/2020, 11/11/2019, 11/06/2018. Interpretation was made with the benefit of CAD. FINDINGS: Breast density: Category A. Breast tissue is almost entirely fatty. No suspicious breast mass, malignant appearing calcifications, or architectural distortion is seen. IMPRESSION: No evidence of malignancy. Assessment: BI-RADS 1. Negative. Recommendation: Routine screening mammograms. The patient will receive a letter with the results in the mail. Patient information will be entered i nto the mammography reminder system with a target recall date for the next mammogram. A reminder lyn er will be generated. Electronically signed by: Perla Stout MD (12/14/2021 11:10 AM) [id number]
== END ==
LOC: MAMMO 10:02
PROVIDERS: ATTEND Family Medicine
DX: Z12.31 Encounter for screening mammogram for malignant neoplasm of breast (principal)
CPT/HCPCS: 77063; 77067

== ENCOUNTER 2022-01-01 17:07 | Emergency (ER) | payer OTHER ==
[~2022-01-01] VITALS: Ht 170.2 cm; Wt 120.0 kg
[2022-01-01] MEDS ORDERED: HYDROcodone/APAP 5/325MG 1 TAB TABLET PO ONE (17:45)
[2022-01-01] MEDS ORDERED: CYCLOBENZAPRINE 10 MG TABLET. PO ONE (17:45)
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
--- NOTE | 2022-01-01 20:06 | RAD ---
Exam: Left forearm 2 views INDICATION: Frontal and lateral views of the left forearm TECHNIQUE: Frontal and lateral views of the left forearm Comparisons: None FINDINGS: Bone mineralization is normal. No acute or healed fractures. Soft tissues are unremarkable. Joint spa iva are well-maintained. IMPRESSION: No acute osseous abnormality Electronically signed by: Leonor Clancy MD (01/01/2022 8:03 PM) [facility]
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
[2022-01-01] MEDS ORDERED: CYCL10TA19 PO (20:45)
[2022-01-01 21:35] VITALS: BP 107/52
== END 2022-01-01 21:35 | disposition home or self-care (01) ==
LOC: ER 17:07
DX: S13.9XXA Sprain of joints and ligaments of unspecified parts of neck, initial encounter (principal); S50.12XA Contusion of left forearm, initial encounter; S09.90XA Unspecified injury of head, initial encounter; R51.9 Headache, unspecified; M25.511 Pain in right shoulder; M25.512 Pain in left shoulder; E11.9 Type 2 diabetes mellitus without complications; Z86.73 Personal history of transient ischemic attack (TIA), and cerebral infarction without residual deficits; Z87.891 Personal history of nicotine dependence; Z88.8 Allergy status to other drugs, medicaments and biological substances; W20.8XXA Other cause of strike by thrown, projected or falling object, initial encounter; Y93.89 Activity, other specified; Y92.89 Other specified places as the place of occurrence of the external cause; Y99.8 Other external cause status
CPT/HCPCS: 70450; 70486; 72125; 73090; 73030-50; 99284-25